=== PATIENT | female | born 1945 | race African-American/Black ===

== ENCOUNTER 2016-12-05 15:26 | Inpatient (IN) | payer MEDICARE ==
[~2016-12-05] VITALS: Ht 170.2 cm; Wt 52.6 kg
[2016-12-05 15:55] LABS: BASO % 0 % (0-3); EOS % 2 % (0-3); HEMATOCRIT 30.1 % (36.0-47.0); HEMOGLOBIN 10.2 g/dL (12.0-15.5); LYMPH # 1.8 x10^3/uL (1.0-4.8); LYMPH % 26 % (24-48); MEAN CORPUSCULAR HEMOGLOBIN 32 pg (25-35); MEAN CORPUSCULAR HGB CONC 34 g/dL (31-37); MEAN CORPUSCULAR VOLUME 95 fL (79-100); MONO % 10 % (0-9); NEUT % 61 % (31-73); PLATELET COUNT 279 x10^3/uL (140-400); RED BLOOD COUNT 3.16 x10^6/uL (3.50-5.40); RED CELL DISTRIBUTION WIDTH 13.1 % (11.5-14.5); WHITE BLOOD COUNT 6.8 x10^3/uL (4.0-11.0)
[2016-12-05] MEDS ORDERED: MULTIVIT INFUSN,ADULT 4,VIT K 10 ML, FOLIC ACID 1 MG, THIAMINE 100 MG in IV DEXTROSE 5 ... IV ONE (16:00)
[2016-12-05 16:14] LABS: CREATININE 1.2 mg/dL (0.6-1.0); GFR 53.7; POTASSIUM 3.7 mmol/L (3.5-5.1)
--- NOTE | 2016-12-05 16:14 | EKG ---
[facility] [address] [place] [address] Test Date: 2016-12-05 Test Time: 16:06:24 Pat Name: AMA SMITH Department: Room: Gender: F Computer Lab Aide: : 1945 Requested By: EV KERR Order Number: [id number] Reading MD: Mario Saunders Measurements Intervals [place] Rate: 88 P: 90 NM: 268 QRS: 54 QRSD: 72 T: 64 QT: 386 QTc: 471 Interpretive Statements SINUS RHYTHM VENTRICULAR PREMATURE COMPLEX(ES) PROLONGED NM INTERVAL Electronically Signed On 12-11-2016 9:10:11 CDT by Mario Saunders
[2016-12-05 16:20] LABS: ALBUMIN 3.3 g/dL (3.4-5.0); ALBUMIN/GLOBULIN RATIO 0.6 (1.0-1.7); TOTAL BILIRUBIN 0.5 mg/dL (0.2-1.0); TOTAL PROTEIN 8.4 g/dL (6.4-8.2)
--- NOTE | 2016-12-05 17:49 | RAD ---
PROCEDURE CT head without contrast HISTORY Dizziness, altered mental status TECHNIQUE Exposure: One or more of the following individualized dose reduction techniques were utilized for this exam: 1. Automated exposure control. 2. Adjustment of the mA and/or kV according to patient size. 3. Use of iterative reconstruction technique. [address] imaging skullbase to vertex COMPARISON No priors FINDINGS Beam hardening artifact from the skullbase extends through the brainstem and cruzito decreasing sensitivity to detect pathology at these locations however diagnostic information still remains. Mild generalized brain atrophy. Cerebral white matter hypoattenuation in a patient of this age likely represents chronic microvascular ischemic gliosis. No intracranial hemorrhage, mass, hydrocephalus or extra-axial fluid collections.. No cerebral cortical infarct. 4 millimeter hypodensity of the right thalamus image 12 an age-indeterminate infarct is not excluded although this could be a small cyst or dilated perivascular space. Orbits, paranasal sinuses, mastoids and bones are unremarkable. IMPRESSION Subcentimeter hypodensity of the right thalamus could represent an age-indeterminate infarct. Heterogeneous hypoattenuating lesions of the cerebral white matter likely representing chronic microvascular ischemic changes, which could decrease the sensitivity for detecting an acute white matter infarct. Electronically signed by: Pradeep Lott MD (December 05, 2016 17:48:17)
--- NOTE | 2016-12-05 18:53 | ED.ADGEN ---
Past Medical History Past Medical History: Gallstones, GERD, Hypertension Past Surgical History: Appendectomy, Other Additional Past Surgical Histo: gallstones, "belly button" Additional Information: 1 ppd Alcohol Use: Heavy Additional Information: reports drinking beer and vodka Drug Use: None, Other Adult General Chief Complaint Chief Complaint: ALTERED MENTAL STATUS HPI HPI Patient is a 70 year old -Greek female who presents with dizziness and near syncope while sitting in the sun on her porch earlier this morning. Patient states she been outdoors for quite a while. On EMS arrival, the patient was alert but confused. He did not exhibit any focal neurologic deficits. Systolic blood pressure was noted to be soft. 200 mL of normal saline was given on route to . On ED arrival, the patient is alert and oriented 4. She reports mild headache and feeling lightheaded during episode, states she now feels better that she is out of the sun states that she has had similar episodes while outdoors in the heat. She reports mild headache but denies any focal neurologic deficits. She denies palpitations chest pain and shortness of breath. Denies abdominal pain, constipation diarrhea, urinary frequency urgency. No other acute symptoms or complaints. Review of Systems Review of Systems Review of symptoms as per HPI. All other review symptoms are negative. Current Medications Current Medications Current Medications Medications (Trade) Dose Ordered Sig/[facility] Start Time Stop Time Status Last Admin Dose Admin Multivitamins 10 ml/Folic Acid 1 mg/Thiamine HCl 100 mg/Dextrose/ Sodium Chloride 1,011.2 ml @ 1,000 mls/ hr 1X ONCE 12/05/16 16:00 12/05/16 17:00 DC 12/05/16 16:09 1,000 MLS/HR Allergies Allergies Allergies Coded Allergies Type Severity Reaction Last Updated Verified Penicillins Allergy Intermediate rash 03/26/14 Yes Physical Exam Physical Exam Constitutional: Well developed, well nourished, hard of hearing, no acute distress, non-toxic appearance. Smells of ETOH. HENT: Normocephalic, atraumatic, bilateral external ears normal, oropharynx moist, no oral exudates, nose normal. Eyes: PERRLA, EOMI, conjunctiva normal, no discharge. Neck: Normal range of motion, no tenderness, supple, no stridor. Cardiovascular:Heart rate regular rhythm, no murmur. Lungs & Thorax: Bilateral breath sounds clear to auscultation. Abdomen: Bowel sounds normal, soft, no tenderness. Skin: Warm, dry, no erythema, no rash. Back: No tenderness, no CVA tenderness. Neurologic: Alert and oriented X 3, normal motor function, normal sensory function, no focal deficits noted. Psychologic: Affect normal, judgement normal, mood normal. Current Patient Data Vital Signs Vital Signs Date Time Temp Pulse Resp B/P (MAP) Pulse Ox O2 Delivery O2 Flow Rate FiO2 12/05/16 15:26 98.6 96 16 132/75 (94) 96 Room Air 98.6 Lab Values Laboratory Tests Test 12/05/16 15:40 White Blood Count 6.8 x10^3/uL (4.0-11.0) Red Blood Count 3.16 x10^6/uL (3.50-5.40) L Hemoglobin 10.2 g/dL (12.0-15.5) L Hematocrit 30.1 % (36.0-47.0) L Mean Corpuscular Volume 95 fL (79-100) Mean Corpuscular Hemoglobin 32 pg (25-35) Mean Corpuscular Hemoglobin Concent 34 g/dL (31-37) Red Cell Distribution Width 13.1 % (11.5-14.5) Platelet Count 279 x10^3/uL (140-400) Neutrophils (%) (Auto) 61 % (31-73) Lymphocytes (%) (Auto) 26 % (24-48) Monocytes (%) (Auto) 10 % (0-9) H Eosinophils (%) (Auto) 2 % (0-3) Basophils (%) (Auto) 0 % (0-3) Neutrophils # (Auto) 4.2 x10^3uL (1.8-7.7) Lymphocytes # (Auto) 1.8 x10^3/uL (1.0-4.8) Monocytes # (Auto) 0.7 x10^3/uL (0.0-1.1) Eosinophils # (Auto) 0.1 x10^3/uL (0.0-0.7) Basophils # (Auto) 0.0 x10^3/uL (0.0-0.2) Sodium Level 123 mmol/L (136-145) L Potassium Level 3.7 mmol/L (3.5-5.1) Chloride Level 87 mmol/L (98-107) L Carbon Dioxide Level 22 mmol/L (21-32) Anion Gap 14 (6-14) Blood Urea Nitrogen 10 mg/dL (7-20) Creatinine 1.2 mg/dL (0.6-1.0) H Estimated GFR (Cockcroft-Gault) 53.7 BUN/Creatinine Ratio 8 (6-20) Glucose Level 78 mg/dL (70-99) Calcium Level 9.0 mg/dL (8.5-10.1) Total Bilirubin 0.5 mg/dL (0.2-1.0) Aspartate Amino Transferase (AST) 46 U/L (15-37) H Alanine Aminotransferase (ALT) 31 U/L (14-59) Alkaline Phosphatase 106 U/L (46-116) Total Protein 8.4 g/dL (6.4-8.2) H Albumin 3.3 g/dL (3.4-5.0) L Albumin/Globulin Ratio 0.6 (1.0-1.7) L Lipase 64 U/L (73-393) L Ethyl Alcohol Level 53 mg/dL (0-10) H Laboratory Tests 12/05/16 15:40 Laboratory Tests 12/05/16 15:40 EKG EKG [EKG: Sinus tach, rate 110, no acute ST-T wave changes, QTC 427.] Radiology/Procedures Radiology/Procedures [CT head: Microvascular disease and possible subacute infarct] Impressions: Patient's mental status and dizziness resolved prior to ED arrival. No acute findings on physical exam. Symptoms likely multifactorial, although alcohol and he exposure likely contributed to episode. Patient noted to be hyponatremic and anemic. Sodium 123. Will admit to the HIMs service. Course & Med Decision Making Course & Med Decision Making Pertinent Labs and Imaging studies reviewed. (See chart for details) [Dr. Tirado to admit.] Dragjean Disclaimer Dragon Disclaimer This electronic medical record was generated, in whole or in part, using a voice recognition dictation system. EV KERR DO December 05, 2016 18:53
[2016-12-05] MEDS ORDERED: IV NORMAL SALINE 1000ML BAG 1,000 ML IV SCH (19:42)
[2016-12-05 20:40] VITALS: BP 148/82
[2016-12-05 23:02] VITALS: BP 146/76
[2016-12-06 03:26] VITALS: BP 160/76
[2016-12-06 04:55] LABS: BASO # 0.1 x10^3/uL (0.0-0.2); BASO % 2 % (0-3); EOS % 4 % (0-3); HEMATOCRIT 27.8 % (36.0-47.0); HEMOGLOBIN 9.8 g/dL (12.0-15.5); LYMPH # 1.6 x10^3/uL (1.0-4.8); LYMPH % 32 % (24-48); MEAN CORPUSCULAR HEMOGLOBIN 33 pg (25-35); MEAN CORPUSCULAR HGB CONC 35 g/dL (31-37); MEAN CORPUSCULAR VOLUME 94 fL (79-100); MONO % 13 % (0-9); NEUT % 49 % (31-73); PLATELET COUNT 269 x10^3/uL (140-400); RED BLOOD COUNT 2.97 x10^6/uL (3.50-5.40); RED CELL DISTRIBUTION WIDTH 13.4 % (11.5-14.5); WHITE BLOOD COUNT 5.1 x10^3/uL (4.0-11.0)
[2016-12-06 05:39] LABS: CALCIUM 8.7 mg/dL (8.5-10.1); CREATININE 0.9 mg/dL (0.6-1.0); GFR 74.9
[2016-12-06 07:00] VITALS: BP 155/73
--- NOTE | 2016-12-06 07:38 | RAD ---
Exam performed: One view chest. Indication: Shortness of air with chest pain today Date of Service: 12/05/2016 6:46 PM Comparison: One view chest from 01/13/15. Single AP upright portable view chest findings: Cardiomediastinal silhouette is within limits of normal. No acute infiltrates, effusion or pneumothorax is detected. Mildly prominent interstitial markings in both lungs are probably chronic. Mild emphysematous changes. The bony structures are normal. Impression: No acute cardiopulmonary process is detected.
[2016-12-06 11:00] VITALS: BP 126/62
[2016-12-06 15:00] VITALS: BP 143/70
--- NOTE | 2016-12-06 20:59 | SSS ---
ADMIT DATE: 12/06/2016 CHIEF COMPLAINT: Loss of consciousness. HISTORY OF PRESENT ILLNESS: The patient is a 70-year-old -[place] woman with chronic alcoholism, who presented to the Emergency Room after passing out while sitting on the porch with her family. Apparently, she was sitting in the red sun, drinking her preferred apple vodka. Got up from the seated position and passed out. EMS was called. On arrival, the patient was actually coherent, mildly confused, did not exhibit any neurological symptoms. Blood pressure was soft, 200 mL of fluids were given on route and by the time she arrived in the Emergency Room, the patient was completely coherent and oriented. On further questioning, she explained to the Emergency Room physician that she had been sitting outside for quite a while, had been feeling lightheaded prior to the episode. All symptoms essentially have resolved by the time of arrival in the Emergency Room, only persistent symptom was a mild headache. In the Emergency Room, she was ruled out for any fractures including shoulder and chest x-ray and head CT. However, on labs, she was found with a sodium of 123 and therefore admitted for observation to the hospital. PAST MEDICAL HISTORY: Chronic alcohol abuse, hypertension, GERD and history of gallstones status post cholecystectomy. FAMILY HISTORY: Heart disease with brother and father. SOCIAL HISTORY: Lives with family, drinks alcohol heavily, although she states a pint last 2-1/2 days. Also, drinks beer, smokes about a pack a day and denies any other drug use. ALLERGIES: PENICILLINS. MEDICATIONS: MAR reconciled with home medications. REVIEW OF SYSTEMS: The patient currently feels fine. She denies any ongoing headache, denies any chest pain, palpitations, lightheadedness or any other symptoms in rest of organ system review. PHYSICAL EXAMINATION: VITAL SIGNS: From today show a blood pressure of 126/62, heart rate of 95, respiratory rate at 18. She is afebrile. GENERAL: This is a thin, 70-year-old, -Australian woman; awake, alert, in no acute distress, slightly hard of hearing. HEENT: Shows no scleral icterus. NECK: Supple. Oral mucosa is pink and moist. Dentition is poor. LUNGS: Clear to auscultation bilaterally. HEART: Regular rate and rhythm. ABDOMEN: Has positive bowel sounds, soft, nontender. EXTREMITIES: Show no edema. LABORATORY DATA: CBC with a WBC of 5.1, hemoglobin 9.8, platelets of 269. Chemistries: Sodium slightly improved 125. Of note, baseline sodium 2 years ago was around 130, potassium at 4.0, BUN of ____. ASSESSMENT AND PLAN: The patient is a 70-year-old woman with syncopal episode after sitting in the sun drinking alcohol. Suspect that this is related to these circumstances rather than cardiac history and discussed with her that alcohol use must be curbed. She also needs to drink other fluids aside from alcohol and avoid direct sun. Her 2 daughters were present with the discussion. They are quite aware of her alcohol abuse. They wish to receive information about helping her detox and obtain resources in the community. Hyponatremia was discussed as well. This is most likely related to alcohol use. She unfortunately is no longer following up with her PCP for several years. Medications are available, but will require monitoring and follow up for further prescriptions. We will hold off on any new prescriptions for her now. DISCHARGE DATE: 12/06/2016. DISCHARGE DISPOSITION: To home. DISCHARGE CONDITION: Stable. DISCHARGE DIAGNOSES: Syncope, question heat stroke. DISCHARGE MEDICATIONS: Please refer to MAR. DISCHARGE INSTRUCTIONS: The patient should find PCP AYSHA, daughters will be instrumental in sitting this up. ROSEMARY GRAHAM MD DR: UR/nts JOB#: [id number] / [id number] JANIE
== END 2016-12-06 16:55 | disposition home or self-care (01) | DRG 923 ==
LOC: ER 15:26 → 4 NORTH 18:49
PROVIDERS: ADMIT Internal Medicine Hematology & Oncology; ATTEND Internal Medicine Hematology & Oncology
DX: T67.0XXA Heatstroke and sunstroke, initial encounter (principal); E87.1 Hypo-osmolality and hyponatremia; R64 Cachexia; Z68.1 Body mass index [BMI] 19.9 or less, adult; F10.20 Alcohol dependence, uncomplicated; R55 Syncope and collapse; F17.210 Nicotine dependence, cigarettes, uncomplicated; I10 Essential (primary) hypertension; K21.9 Gastro-esophageal reflux disease without esophagitis; Z90.49 Acquired absence of other specified parts of digestive tract; Z82.49 Family history of ischemic heart disease and other diseases of the circulatory system; Z88.0 Allergy status to penicillin
CPT/HCPCS: 36415; 70450; 71010; 80048; 80053; 83690; 85027; 93005; 96365; 96366; G0480; J7030; 99285-25

== ENCOUNTER 2017-03-13 10:57 | Emergency (ER) | payer MEDICARE ==
[~2017-03-13] VITALS: Ht 165.1 cm; Wt 45.4 kg
[2017-03-13] MEDS ORDERED: fentaNYL PF VIAL 100 MCG/2 ML VIAL IV ONE (11:45)
[2017-03-13] MEDS ORDERED: IV NORMAL SALINE 1000ML BAG 1,000 ML IV ONE (11:45)
--- NOTE | 2017-03-13 12:04 | PHYS DOC ---
Past Medical History Past Medical History: Gallstones, GERD, Hypertension Past Surgical History: Appendectomy, Other Additional Past Surgical Histo: gallstones, "belly button" Alcohol Use: Heavy Drug Use: None, Other Adult General Chief Complaint Chief Complaint: dental pain, jaw pain HPI HPI Patient is a 71 year old female who presents with mouth pain and dental pain. Patient has a diffuse poor dentition, states pain of one week. Decreased appetite, is taking in by mouth fluids. No fevers reported, not taking anything for pain. She does not have a tetanus follow-up with, she sees Dr. Annmarie Barton as a primary care physician. Denies dysuria or other signs of systemic illness. Review of Systems Review of Systems Constitutional: Denies fever or chills [] Eyes: Denies eye pain [] HENT: Denies nasal congestion or sore throat [] Respiratory: Denies cough or shortness of breath [] Cardiovascular: Denies chest pain GI: Denies abdominal pain, nausea, vomiting, or change in stools : Denies dysuria or hematuria [] Musculoskeletal: Denies back pain Integument: Denies rash Neurologic: Denies headache, focal weakness or sensory changes [] Current Medications Current Medications Current Medications Medications (Trade) Dose Ordered Sig/[facility] Start Time Stop Time Status Last Admin Dose Admin Fentanyl Citrate (Fentanyl 2ml Vial) 50 mcg 1X ONCE 03/13/17 11:45 03/13/17 11:46 DC 03/13/17 13:50 50 MCG Metronidazole 100 ml @ 100 mls/hr 1X ONCE 03/13/17 11:45 03/13/17 12:44 DC 03/13/17 13:15 100 MLS/HR Sodium Chloride 1,000 ml @ 1,000 mls/hr 1X ONCE 03/13/17 11:45 03/13/17 12:44 DC 03/13/17 12:32 1,000 MLS/HR Allergies Allergies Allergies Coded Allergies Type Severity Reaction Last Updated Verified Penicillins Allergy Intermediate rash 03/26/14 Yes codeine Allergy Unknown 03/13/17 Yes latex Allergy Unknown 03/13/17 Yes Physical Exam Physical Exam Constitutional: Well developed, frail, slightly malnourished, thin HENT: Normocephalic, atraumatic, diffuse poor dentition, bowel odor, no trismus , decay to the level of the gums, right side jaw tenderness without obvious fluctuance Eyes: PERRLA, EOMI, conjunctiva normal, no discharge. [] Neck: Normal range of motion, no tenderness, supple, no stridor. [] Cardiovascular:Heart rate tachycardic with regular rhythm, no murmur [] Lungs & Thorax: Bilateral breath sounds clear to auscultation, no wheeze/ crackles or rhonchi Abdomen: Bowel sounds normal, soft, no tenderness, no masses, no pulsatile masses. [] Skin: Warm, dry, no erythema, no rash. [] Back: No tenderness, no CVA tenderness. [] Extremities: No tenderness, no cyanosis, no clubbing, ROM intact, no edema. [] Neurologic: Alert and oriented X 3, normal motor function, normal sensory function, no focal deficits noted. [] Psychologic: Affect normal, judgement normal, mood normal. [] Current Patient Data Vital Signs Vital Signs Date Time Temp Pulse Resp B/P (MAP) Pulse Ox O2 Delivery O2 Flow Rate FiO2 03/13/17 13:50 16 96 Room Air 03/13/17 11:09 98.8 121 98.8 Lab Values Laboratory Tests Test 03/13/17 11:50 03/13/17 12:28 White Blood Count 16.5 x10^3/uL (4.0-11.0) H Red Blood Count 3.16 x10^6/uL (3.50-5.40) L Hemoglobin 10.5 g/dL (12.0-15.5) L Hematocrit 31.8 % (36.0-47.0) L Mean Corpuscular Volume 101 fL (79-100) H Mean Corpuscular Hemoglobin 33 pg (25-35) Mean Corpuscular Hemoglobin Concent 33 g/dL (31-37) Red Cell Distribution Width 14.7 % (11.5-14.5) H Platelet Count 347 x10^3/uL (140-400) Neutrophils (%) (Auto) 76 % (31-73) H Lymphocytes (%) (Auto) 6 % (24-48) L Monocytes (%) (Auto) 18 % (0-9) H Eosinophils (%) (Auto) 0 % (0-3) Basophils (%) (Auto) 0 % (0-3) Neutrophils # (Auto) 12.5 x10^3uL (1.8-7.7) H Lymphocytes # (Auto) 1.0 x10^3/uL (1.0-4.8) Monocytes # (Auto) 3.0 x10^3/uL (0.0-1.1) H Eosinophils # (Auto) 0.0 x10^3/uL (0.0-0.7) Basophils # (Auto) 0.0 x10^3/uL (0.0-0.2) Segmented Neutrophils % 75 % (35-66) H Band Neutrophils % 3 % (0-9) Lymphocytes % 4 % (24-48) L Monocytes % 18 % (0-10) H Platelet Estimate Adequate (ADEQUATE) Lactic Acid Level 1.4 mmol/L (0.4-2.0) Total Bilirubin 0.7 mg/dL (0.2-1.0) Direct Bilirubin 0.5 mg/dL (0.0-0.2) H Aspartate Amino Transferase (AST) 34 U/L (15-37) Alanine Aminotransferase (ALT) 21 U/L (14-59) Alkaline Phosphatase 91 U/L (46-116) Total Protein 9.8 g/dL (6.4-8.2) H Albumin 2.7 g/dL (3.4-5.0) L POC Hemoglobin 11.9 g/dL (12-15) L POC Hematocrit 35 % (36-40) L POC Sodium 136 mmol/L (135-145) POC Potassium 3.3 mmol/L (3.5-5.0) L POC Chloride 95 mmol/L (98-110) L POC Total CO2 23 mmol/L (23-32) Anion Gap 23 mmol/L (6-14) H POC Blood Urea Nitrogen 41 mg/dL (8-26) H POC Creatinine 1.4 mg/dL (0.5-1.4) Glucose Level 125 mg/dL (70-99) H POC Ionized Calcium (Oliver) 1.23 mmol/L (1.13-1.32) Laboratory Tests 03/13/17 11:50 Laboratory Tests 03/13/17 12:28 EKG EKG [] Radiology/Procedures Radiology/Procedures [] Course & Med Decision Making Course & Med Decision Making Pertinent Labs and Imaging studies reviewed. (See chart for details) Patient presents with tachycardia with possible trench mouth. IV established, lactate, blood cultures, CBC and BMP ordered. IV flagyl given. Pt feeling improved, HR below 100, normal lactate. Pt comfortable with discharge , dc with peridex and flagyl, return precautions given, dental resource list. Rx for ibuprofen also. Dragon Disclaimer Dragon Disclaimer This electronic medical record was generated, in whole or in part, using a voice recognition dictation system. Departure Departure Impression: Primary Impression: Trench mouth Disposition: HOME, SELF-CARE Condition: IMPROVED Referrals: MARILU BARTON MD (PCP) Scripts Chlorhexidine Gluconate (PERIDEX) 15 Ml Mouthwash 15 ML PO BID, #473 ML Swish for 30 seconds and spit Prov: MICHELLE BURRELL MD 03/13/17 Metronidazole (METRONIDAZOLE) 500 Mg Tablet 1 TAB PO BID, #14 TAB Prov: MICHELLE BURRELL MD 03/13/17 Ibuprofen (Ibuprofen) 400 Mg Tablet 400 MG PO PRN Q6HRS Y for PAIN, #24 TAB take with food or milk to avoid upsetting your stomach Prov: MICHELLE BURRELL MD 03/13/17 MICHELLE BURRELL MD Mar 13, 2017 12:04
[2017-03-13 12:08] LABS: BASO % 0 % (0-3); EOS % 0 % (0-3); HEMATOCRIT 31.8 % (36.0-47.0); HEMOGLOBIN 10.5 g/dL (12.0-15.5); LYMPH % 6 % (24-48); MEAN CORPUSCULAR HEMOGLOBIN 33 pg (25-35); MEAN CORPUSCULAR HGB CONC 33 g/dL (31-37); MEAN CORPUSCULAR VOLUME 101 fL (79-100); MONO % 18 % (0-9); NEUT % 76 % (31-73); PLATELET COUNT 347 x10^3/uL (140-400); RED BLOOD COUNT 3.16 x10^6/uL (3.50-5.40); RED CELL DISTRIBUTION WIDTH 14.7 % (11.5-14.5); WHITE BLOOD COUNT 16.5 x10^3/uL (4.0-11.0)
[2017-03-13 12:16] LABS: ALBUMIN 2.7 g/dL (3.4-5.0); DIRECT BILIRUBIN 0.5 mg/dL (0.0-0.2); TOTAL BILIRUBIN 0.7 mg/dL (0.2-1.0); TOTAL PROTEIN 9.8 g/dL (6.4-8.2)
[2017-03-13 12:31] LABS: POTASSIUM ISTAT 3.3 mmol/L (3.5-5.0)
[2017-03-13 13:57] LABS: PLT ESTIMATE ADEQUATE (ADEQUATE)
[2017-03-13] MEDS ORDERED: CHLO15MO2 PO (14:06)
[2017-03-13] MEDS ORDERED: IBUP400T18 PO (14:06)
[2017-03-13] MEDS ORDERED: METR500T8 PO (14:06)
[2017-03-13 14:09] VITALS: BP 144/71
== END 2017-03-13 14:27 | disposition home or self-care (01) ==
LOC: ER 10:57
DX: A69.1 Other Vincent's infections (principal); K21.9 Gastro-esophageal reflux disease without esophagitis; I10 Essential (primary) hypertension; F10.10 Alcohol abuse, uncomplicated; Z88.5 Allergy status to narcotic agent; Z88.0 Allergy status to penicillin; Z91.040 Latex allergy status
CPT/HCPCS: 36415; 80047; 80076; 83605; 85007; 85025; 87040; 96361; 96365; 96375; 99284; J3010; J3490; J7030

== ENCOUNTER 2018-09-29 07:57 | Inpatient (IN) | payer MEDICARE ==
[~2018-09-29] VITALS: Ht 170.2 cm; Wt 59.1 kg
[~2018-09-29 07:57] MED LIST: CHLO15MO2 PO; IBUP400T18 PO; METR-34 PO; PANT40TA5 PO
--- NOTE | 2018-09-29 08:12 | PHYS DOC ---
Past Medical History Past Medical History: COPD, GI Bleed, Hypertension Past Surgical History: Appendectomy, Other Additional Past Surgical Histo: Bilateral cataracts. Smoking: Cigarettes, Less than 1pk/day Alcohol Use: Occasionally Drug Use: None Adult General Chief Complaint Chief Complaint: SYNCOPE HPI HPI Patient is a 72 year old female who presents with syncopal episode. Patient was brought in by EMS. Patient does not remember the episode. Per EMS she was found in the bathroom laying flat on her back. Uncertain as to how long she was unconscious. She was found by family members. Patient complains of pain in the back of the head. No loss of bowel or bladder control. No weakness on either the left or the right side. No palpitations. Nothing seems to make the symptoms better or worse.[] Review of Systems Review of Systems Constitutional: Denies fever or chills [] Eyes: Denies change in visual acuity, redness, or eye pain [] HENT: Denies nasal congestion or sore throat [] Respiratory: Denies cough or shortness of breath [] Cardiovascular: No chest pain or palpitations[] GI: Denies abdominal pain, nausea, vomiting, bloody stools or diarrhea [] : Denies dysuria or hematuria [] Musculoskeletal: Denies back pain or joint pain [] Integument: Denies rash or skin lesions [] Neurologic: Denies headache, focal weakness or sensory changes [] Endocrine: Denies polyuria or polydipsia [] All other systems were reviewed and found to be within normal limits, except as documented in this note. Allergies Allergies Allergies Coded Allergies Type Severity Reaction Last Updated Verified Penicillins Allergy Intermediate rash 03/26/14 Yes codeine Allergy Intermediate Reaction unknown 03/31/17 Yes latex Allergy Intermediate 03/29/17 Yes Physical Exam Physical Exam Constitutional: Well developed, well nourished, no acute distress, non-toxic appearance. [] HENT: Normocephalic, tenderness to the occiput. No step-off, no crepitus, bilateral external ears normal, oropharynx moist, no oral exudates, nose normal. [] Eyes: PERRLA, EOMI, conjunctiva normal, no discharge. [] Neck: Normal range of motion, no tenderness, supple, no stridor. [] Cardiovascular:Heart rate regular rhythm, no murmur [] Lungs & Thorax: Bilateral breath sounds clear to auscultation [] Abdomen: Bowel sounds normal, soft, no tenderness, no masses, no pulsatile masses. [] Skin: Warm, dry, no erythema, no rash. [] Back: No tenderness, no CVA tenderness. [] Extremities: No tenderness, no cyanosis, no clubbing, ROM intact, no edema. [] Neurologic: Alert and oriented X 3, normal motor function, normal sensory function, no focal deficits noted. [] Psychologic: Affect normal, judgement normal, mood normal. [] Current Patient Data Vital Signs Vital Signs Date Time Temp Pulse Resp B/P (MAP) Pulse Ox O2 Delivery O2 Flow Rate FiO2 09/29/18 08:02 97.6 74 16 145/69 (94) 97 Room Air 97.6 Lab Values Laboratory Tests Test 09/29/18 08:10 White Blood Count 4.6 x10^3/uL (4.0-11.0) Red Blood Count 3.79 x10^6/uL (3.50-5.40) Hemoglobin 12.1 g/dL (12.0-15.5) Hematocrit 35.9 % (36.0-47.0) L Mean Corpuscular Volume 95 fL (79-100) Mean Corpuscular Hemoglobin 32 pg (25-35) Mean Corpuscular Hemoglobin Concent 34 g/dL (31-37) Red Cell Distribution Width 13.0 % (11.5-14.5) Platelet Count 279 x10^3/uL (140-400) Neutrophils (%) (Auto) 51 % (31-73) Lymphocytes (%) (Auto) 36 % (24-48) Monocytes (%) (Auto) 7 % (0-9) Eosinophils (%) (Auto) 4 % (0-3) H Basophils (%) (Auto) 2 % (0-3) Neutrophils # (Auto) 2.4 x10^3uL (1.8-7.7) Lymphocytes # (Auto) 1.6 x10^3/uL (1.0-4.8) Monocytes # (Auto) 0.3 x10^3/uL (0.0-1.1) Eosinophils # (Auto) 0.2 x10^3/uL (0.0-0.7) Basophils # (Auto) 0.1 x10^3/uL (0.0-0.2) Prothrombin Time 13.3 SEC (11.7-14.0) Prothrombin Time INR 1.0 (0.8-1.1) Sodium Level 129 mmol/L (136-145) L Potassium Level 4.6 mmol/L (3.5-5.1) Chloride Level 94 mmol/L (98-107) L Carbon Dioxide Level 25 mmol/L (21-32) Anion Gap 10 (6-14) Blood Urea Nitrogen 11 mg/dL (7-20) Creatinine 1.2 mg/dL (0.6-1.0) H Estimated GFR (Cockcroft-Gault) 53.4 BUN/Creatinine Ratio 9 (6-20) Glucose Level 94 mg/dL (70-99) Calcium Level 8.7 mg/dL (8.5-10.1) Magnesium Level 1.6 mg/dL (1.8-2.4) L Total Bilirubin 0.2 mg/dL (0.2-1.0) Aspartate Amino Transferase (AST) 36 U/L (15-37) Alanine Aminotransferase (ALT) 32 U/L (14-59) Alkaline Phosphatase 125 U/L (46-116) H Troponin I Quantitative < 0.017 ng/mL (0.000-0.055) ZA-Wue-G-Type Natriuretic Peptide 428 pg/mL (0-124) H Total Protein 8.5 g/dL (6.4-8.2) H Albumin 3.2 g/dL (3.4-5.0) L Albumin/Globulin Ratio 0.6 (1.0-1.7) L Ethyl Alcohol Level 32 mg/dL (0-10) H Laboratory Tests 09/29/18 08:10 Laboratory Tests 09/29/18 08:10 EKG EKG EKG shows a sinus rhythm at 71 bpm, normal axis, prolonged OK interval at 226 ms , QTC of 468 ms, no ST elevations, no acute changes when compared with EKG of . Interpreted by me at [id number][] Radiology/Procedures Radiology/Procedures EXAM: CHEST 1 VIEW History: Syncope COMPARISON: None available. TECHNIQUE: Single portable radiograph of the chest FINDINGS: The cardiac silhouette is unremarkable. The lungs are clear bilaterally. The costophrenic sulci are clear and well demarcated. IMPRESSION: No radiographic evidence of an acute cardiopulmonary process. CT HEAD INDICATION: syncope. head injury COMPARISON: None Available. Exposure: One or more of the following individualized dose reduction techniques were utilized for this examination: 1. Automated exposure control 2. Adjustment of the mA and/or kV according to patient size 3. Use of iterative reconstruction technique TECHNIQUE: 5 mm contiguous axial images were obtained from the skull base to the vertex in both bone and soft tissue algorithm. FINDINGS: Mild bilateral periventricular white matter hypodensities likely chronic small vessel ischemic disease. No evidence of acute intracranial hemorrhage. No extra-axial fluid collections. No mass effect or midline shift. Ventricular size is appropriate. Basal cisterns are patent. No fractures identified.Rivers-white differentiation is preserved.Globes and orbits are within normal limits. Paranasal sinuses and mastoid air cells are clear. CT CERVICAL SPINE INDICATION: syncope. head injury COMPARISON: None Available. Technique: 2.5 mm contiguous axial images were obtained from the skull base through the cervicothoracic junction in both bone and soft tissue algorithm. Additional sagittal and coronal reconstructions were also performed. FINDINGS: Vertebral body height and alignment are maintained. Cervical lordosis is preserved. The lateral masses of C1 are aligned upon C2. No fractures identified. The bony canal is patent throughout. Moderate intervertebral disc height loss identified throughout the cervical spine likely due to degeneration with the facets are well aligned. 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 The paraspinous soft tissues are unremarkable. Visualized intracranial contents are unremarkable. Mild emphysematous changes identified in the apical lungs. IMPRESSION: 1. No acute intracranial findings. 2. No acute fracture of the cervical spine. Correlate clinically. 3. Moderate degenerative changes cervical spine. [] Course & Med Decision Making Course & Med Decision Making Pertinent Labs and Imaging studies reviewed. (See chart for details) ED course: Patient arrived, was placed in bed, from the EMS cot, she tolerated exam well. She was transported to and from [place] without any complications. After the return of the laboratory and imaging findings, these were discussed with the patient who voiced understanding. All questions were answered. Consultation was made with the hospitalist service for admission and they graciously agreed. She was admitted in improved condition.[] Dragon Disclaimer Dragon Disclaimer This electronic medical record was generated, in whole or in part, using a voice recognition dictation system. Departure Departure Impression: Primary Impression: Syncope Disposition: 09 ADMITTED INPATIENT Admitting Physician: Anatoliy Calvillo Condition: IMPROVED Referrals: MARILU BARTON MD (PCP) Problem Qualifiers Primary Impression: Syncope Syncope type: unspecified Qualified Codes: R55 - Syncope and collapse SOFIA BLACK Sep 29, 2018 08:12
[2018-09-29 08:31] LABS: BASO # 0.1 x10^3/uL (0.0-0.2); BASO % 2 % (0-3); EOS # 0.2 x10^3/uL (0.0-0.7); EOS % 4 % (0-3); HEMATOCRIT 35.9 % (36.0-47.0); HEMOGLOBIN 12.1 g/dL (12.0-15.5); LYMPH # 1.6 x10^3/uL (1.0-4.8); LYMPH % 36 % (24-48); MEAN CORPUSCULAR HEMOGLOBIN 32 pg (25-35); MEAN CORPUSCULAR HGB CONC 34 g/dL (31-37); MEAN CORPUSCULAR VOLUME 95 fL (79-100); MONO # 0.3 x10^3/uL (0.0-1.1); MONO % 7 % (0-9); NEUT # 2.4 x10^3uL (1.8-7.7); NEUT % 51 % (31-73); PLATELET COUNT 279 x10^3/uL (140-400); RED BLOOD COUNT 3.79 x10^6/uL (3.50-5.40); WHITE BLOOD COUNT 4.6 x10^3/uL (4.0-11.0)
[2018-09-29 08:37] LABS: PROTHROMBIN TIME PATIENT 13.3 SEC (11.7-14.0)
[2018-09-29 08:42] LABS: CALCIUM 8.7 mg/dL (8.5-10.1); CREATININE 1.2 mg/dL (0.6-1.0); GFR 53.4; POTASSIUM 4.6 mmol/L (3.5-5.1)
--- NOTE | 2018-09-29 08:45 | RAD ---
EXAM: CHEST 1 VIEW History: Syncope COMPARISON: None available. TECHNIQUE: Single portable radiograph of the chest FINDINGS: The cardiac silhouette is unremarkable. The lungs are clear bilaterally. The costophrenic sulci are clear and well demarcated. IMPRESSION: No radiographic evidence of an acute cardiopulmonary process. Electronically signed by: Jacinto Moreno MD (09/29/2018 8:43 AM) [facility]
[2018-09-29 08:49] LABS: ALBUMIN 3.2 g/dL (3.4-5.0); ALBUMIN/GLOBULIN RATIO 0.6 (1.0-1.7); MAGNESIUM 1.6 mg/dL (1.8-2.4); TOTAL BILIRUBIN 0.2 mg/dL (0.2-1.0); TOTAL PROTEIN 8.5 g/dL (6.4-8.2)
--- NOTE | 2018-09-29 09:06 | RAD ---
Examination: CT head and cervical spine without contrast CT HEAD INDICATION: syncope. head injury COMPARISON: None Available. Exposure: One or more of the following individualized dose reduction techniques were utilized for this examination: 1. Automated exposure control 2. Adjustment of the mA and/or kV according to patient size 3. Use of iterative reconstruction technique TECHNIQUE: 5 mm contiguous axial images were obtained from the skull base to the vertex in both bone and soft tissue algorithm. FINDINGS: Mild bilateral periventricular white matter hypodensities likely chronic small vessel ischemic disease. No evidence of acute intracranial hemorrhage. No extra-axial fluid collections. No mass effect or midline shift. Ventricular size is appropriate. Basal cisterns are patent. No fractures identified.Rivers-white differentiation is preserved.Globes and orbits are within normal limits. Paranasal sinuses and mastoid air cells are clear. CT CERVICAL SPINE INDICATION: syncope. head injury COMPARISON: None Available. Technique: 2.5 mm contiguous axial images were obtained from the skull base through the cervicothoracic junction in both bone and soft tissue algorithm. Additional sagittal and coronal reconstructions were also performed. FINDINGS: Vertebral body height and alignment are maintained. Cervical lordosis is preserved. The lateral masses of C1 are aligned upon C2. No fractures identified. The bony canal is patent throughout. Moderate intervertebral disc height loss identified throughout the cervical spine likely due to degeneration with the facets are well aligned. 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 The paraspinous soft tissues are unremarkable. Visualized intracranial contents are unremarkable. Mild emphysematous changes identified in the apical lungs. IMPRESSION: 1. No acute intracranial findings. 2. No acute fracture of the cervical spine. Correlate clinically. 3. Moderate degenerative changes cervical spine. Electronically signed by: Jacinto Moreno MD (09/29/2018 9:02 AM) [facility]
[2018-09-29] MEDS ORDERED: ACETAMINOPHEN 325 MG TABLET. PO PRN (09:30)
[2018-09-29] MEDS ORDERED: ONDANSETRON PF 4 MG/2 ML VIAL. IV PRN (09:30)
[2018-09-29] MEDS ORDERED: IV NORMAL SALINE 1000ML BAG 1,000 ML IV ONE (09:30)
--- NOTE | 2018-09-29 10:42 | PDOC1 ---
History and Physical Date of Admission Date of Admission DATE: 09/29/18 TIME: 10:42 Identification/Chief Complaint Chief Complaint SEEN IN ER FOR SYNCOPAL EPISODE . Per EMS she was found in the bathroom laying flat on her back. Uncertain as to how long she was unconscious. She was found by HER SON . Patient complains of pain in the back of the head. No loss of bowel or bladder control. No weakness on either the left or the right side. No palpitations.States she drank heavily yesterday, whiskey, celebrating her re return from [place] was visiting her daughter who has cancer. States she drinks about 3-4 times a week, mostly beer, but will not drink alcohol unless it tastes sweet. States she has drank heavily at least 20 yrs, was in treatment program for ETOH YRS AGO, Does not have a PCP. Past Medical History Past Medical History Past Medical History Past Medical History Past Medical History: COPD, GI Bleed, Hypertension Past Surgical History: Appendectomy, Other Additional Past Surgical Histo: Bilateral cataracts. Smoking: Cigarettes, Less than 1pk/day Alcohol Use: heavy Drug Use: None PAST MEDICAL HISTORY: Chronic alcohol abuse, hypertension, GERD and history of gallstones status post cholecystectomy. FAMILY HISTORY: Heart disease with brother and father. Father drank heavily she reports SOCIAL HISTORY: Lives with son , drinks alcohol heavily, although she states a pint last 2-1/2 days. Also, drinks beer, smokes about a pack a day and denies any other drug use. ALLERGIES: PENICILLINS. MEDICATIONS: MAR reconciled with home medications. GI: GERD, GI bleed Musculoskeletal: Osteoarthritis Family History Family History PAST SURGICAL HISTORY: She is status post appendectomy as well as bilateral cataract surgery. FAMILY HISTORY: Positive for GI issues in 2 brothers as well as 2 sons, all apparently with some type of upper GI bleed. One brother with cancer of the GI system. Family History: Alcohol Abuse Social History Smoke: <1 pack per day ALCOHOL: occassional Drugs: None Current Medications Current Medications Current Medications Ondansetron HCl (Zofran) 4 mg PRN Q8HRS PRN IV NAUSEA/VOMITING; Start 09/29/18 at 09:30; Stop 09/30/18 at 09:29 Acetaminophen (Tylenol) 650 mg PRN Q4HRS PRN PO FEVER or PAIN; Start 09/29/18 at 09:30; Stop 09/30/18 at 09:29 Sodium Chloride 1,000 ml @ 100 mls/hr 1X ONCE IV Last administered on at 09:24; Start 09/29/18 at 09:30; Stop 09/29/18 at 19:29 Active Scripts Active Pantoprazole Sodium 40 Mg Tablet.dr 40 Mg PO BIDAC 30 Days Peridex (Chlorhexidine Gluconate) 15 Ml Mouthwash 15 Ml PO BID Swish for 30 seconds and spit Allergies Allergies: Coded Allergies: Penicillins (Verified Allergy, Intermediate, rash, 03/26/14) codeine (Verified Allergy, Intermediate, Reaction unknown, 03/31/17) Patient says she has taken Lortab previously without problems. latex (Verified Allergy, Intermediate, 03/29/17) ROS Review of System Review of Systems Review of Systems Constitutional: Denies fever or chills [] Eyes: Denies change in visual acuity, redness, or eye pain [] HENT: Denies nasal congestion or sore throat [] Respiratory: Denies cough or shortness of breath [] Cardiovascular: No chest pain or palpitations[] GI: Denies abdominal pain, nausea, vomiting, bloody stools or diarrhea [] : Denies dysuria or hematuria [] Musculoskeletal: Denies back pain or joint pain [] Integument: Denies rash or skin lesions [] Neurologic: Denies headache, focal weakness or sensory changes [] Endocrine: Denies polyuria or polydipsia [] 14 PT systems were reviewed and found to be within normal limits, except as documented General: YES: Malaise Respiratory: No: Cough, Hemoptysis, Orthopnea, Pleuritic Pain, Shortness of breath, SOB with excertion, Sputum Changes, Stridor, Tachypnea, Wheezing, Other Cardiovascular: No Chest Pain, No Palpitations, No Orthopnea, No Paroxysmal Noc. Dyspnea, No Edema, No Lt Headedness, No Other Gastrointestinal: No Nausea, No Vomiting, No Abdominal Pain, No Diarrhea, No Constipation, No Melena, No Hematochezia, No Other Genitourinary: No Dysuria, No Frequency, No Incontinence, No Hematuria, No Retention, No Discharge, No Urgency, No Pain, No Flank Pain, No Other, No , No , No , No , No , No , No Neurological: Yes Gait Disturbance, Yes Impaired Coord/balance Physical Exam Physical Exam Physical Exam Physical Exam Constitutional: Well developed, POORLY nourished, no acute distress, non-toxic appearance. [] HENT: Normocephalic, tenderness to the occiput. No step-off, no crepitus, bilateral external ears normal, oropharynx moist, no oral exudates, nose normal.POOR DENTITION [] Eyes: PERRLA, EOMI, conjunctiva normal, no discharge. [] Neck: Normal range of motion, no tenderness, supple, no stridor. [] Cardiovascular:Heart rate regular rhythm, no murmur [] Lungs & Thorax: Bilateral breath sounds clear to auscultation [] Abdomen: Bowel sounds normal, soft, no tenderness, no masses, no pulsatile masses. [] Skin: Warm, dry, no erythema, no rash. [] Back: No tenderness, no CVA tenderness. [] Extremities: No tenderness, no cyanosis, no clubbing, ROM intact, no edema. [] Neurologic: Alert and oriented X 3, normal motor function, normal sensory function, no focal deficits noted. 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 [] General: Oriented X3, Cooperative, No acute distress HEENT: EOMI Lungs: Clear to auscultation Heart: RRR Breasts: Not examined Abdomen: Soft Rectal Exam: not examined PELVIC: Examination not indicated Extremities: No cyanosis Neuro: Normal speech, Cranial nerves 3-12 NL Psych/Mental Status: Other (flat affect) Vitals Vitals Vital Signs Date Time Temp Pulse Resp B/P (MAP) Pulse Ox O2 Delivery O2 Flow Rate FiO2 09/29/18 09:00 72 13 152/75 (100) 98 Room Air 09/29/18 08:02 97.6 97.6 Labs Labs Operative Note Operative Note EGD with bx Meds propofol 80 mg Pre-op dx acute blood loss anemia/melena/abnl Ct scan post-op dx- large penetrating lesser curve ulcer 4 x 8 cm s/p bx with cratered base no active bleed presently Plan transfusional support to maintain Hg > 8 bleeding scan to assess for other source of bleeding await biopsies r/o malignancy BELÉN TENORIO MD Mar 28, 2017 14:21 SIGNED BY: BELÉN TENORIO MD DATE: 03/28/17 1421 DICTATED AND SIGNED BY: YULY FLORES MD DATE: 03/27/172106 CC: EV KERR DO; MARILU BARTON MD ~ EXAM: Abdomen and pelvis CT without intravenous contrast. HISTORY: Epigastric pain. TECHNIQUE: Computed tomographic images of the abdomen and pelvis were obtained without contrast. Multiplanar reformatting was performed. *One or more of the following individualized dose reduction techniques were utilized for this examination: 1. Automated exposure control. 2. Adjustment of the mA and/or kV according to patient size. 3. Use of iterative reconstruction technique. COMPARISON: None. FINDINGS: Evaluation of the lower thorax demonstrates left lower lobe infiltrate and suspected right basilar atelectasis. There is no effusion. The heart is normal in size. There is a 2.8 cm fluid and gas-filled outpouching along the lesser curvature of the stomach. There is mild adjacent gastric wall thickening. There is suggestion of a 5 mm hypodense lesion within the liver, possibly due to volume averaging artifact or a tiny cyst. No suspicious hepatic lesion is seen. The gallbladder is surgically absent. The pancreas, spleen and adrenal glands are unremarkable. There is a partially duplicated left renal collecting system. There is no suspicious renal lesion or obstructive uropathy. There is colonic diverticulosis without evidence of diverticulitis. There is no evidence of bowel obstruction. There is aortic and aortic branch vessel calcified atherosclerotic plaque. No pathologically enlarged lymph node is seen. The urinary bladder, uterus and adnexal regions are unremarkable. There is bone demineralization. There are degenerative changes throughout the spine. There is a severe L2 compression fracture with 4 mm retropulsion of the cortex resulting in mild central canal stenosis. This is chronic in appearance. IMPRESSION: 1. 2.8 cm gas and fluid-filled outpouching along the lesser curvature of the stomach. This is not the classic location for a gastric diverticulum. However, the absence of surrounding stranding or extraluminal fluid or gas favors a diverticulum rather than contained perforation. There is mild thickening of the mucosa along the lesser curvature of the stomach, a component of which may be due to relative under distention. The possibility of adjacent gastritis is not excluded. Given history of epigastric pain, endoscopic assessment may be useful if clinically indicated. 2. Colonic diverticulosis. Electronically signed by: Yuly Flores MD (03/27/2017 7:07 PM) [facility] CT HEAD INDICATION: syncope. head injury COMPARISON: None Available. Exposure: One or more of the following individualized dose reduction techniques were utilized for this examination: 1. Automated exposure control 2. Adjustment of the mA and/or kV according to patient size 3. Use of iterative reconstruction technique TECHNIQUE: 5 mm contiguous axial images were obtained from the skull base to the vertex in both bone and soft tissue algorithm. FINDINGS: Mild bilateral periventricular white matter hypodensities likely chronic small vessel ischemic disease. No evidence of acute intracranial hemorrhage. No extra-axial fluid collections. No mass effect or midline shift. Ventricular size is appropriate. Basal cisterns are patent. No fractures identified.Rivers-white differentiation is preserved.Globes and orbits are within normal limits. Paranasal sinuses and mastoid air cells are clear. CT CERVICAL SPINE INDICATION: syncope. head injury COMPARISON: None Available. Technique: 2.5 mm contiguous axial images were obtained from the skull base through the cervicothoracic junction in both bone and soft tissue algorithm. Additional sagittal and coronal reconstructions were also performed. FINDINGS: Vertebral body height and alignment are maintained. Cervical lordosis is preserved. The lateral masses of C1 are aligned upon C2. No fractures identified. The bony canal is patent throughout. Moderate intervertebral disc height loss identified throughout the cervical spine likely due to degeneration with the facets are well aligned. 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 The paraspinous soft tissues are unremarkable. Visualized intracranial contents are unremarkable. Mild emphysematous changes identified in the apical lungs. IMPRESSION: 1. No acute intracranial findings. 2. No acute fracture of the cervical spine. Correlate clinically. 3. Moderate degenerative changes cervical spine. Electronically signed by: Jacinto Moreno MD (09/29/2018 9:02 AM) [facility] DICTATED and SIGNED BY: JACINTO MORENO MD DATE: 09/29/18 0845 PATHOLOGY REPORT * * * * * * * * FINAL DIAGNOSIS: Gastric biopsy, gastric ulcer: - Active chronic gastritis, moderate to marked, with extensive intestinal metaplasia and ulceration. COMMENT: Sections of the gastric biopsy reveal segments of gastric antral mucosa showing moderate to marked active chronic inflammation with extensive intestinal metaplasia. There are also segments of acute inflammatory exudate consistent with ulceration. A properly controlled immunoperoxidase stain for Helicobacter is obtained. There is focal granular staining, but no definitive Helicobacter organisms are identified. There is no evidence of malignancy. (JPM:mml; 03/29/2017) REPORT ELECTRONICALLY SIGNED BY: Yusef French M.D. DATE/TIME: 03/29/2017 11:07 * * * * * * * * GROSS PATHOLOGY: Received in formalin labeled "Dong, Sunni, gastric ulcer biopsy," are multiple segments of randhawa soft tissue measuring from 0.1 up to 0.3 cm in maximum dimension. The specimen is submitted entirely in cassette A1. An immunoperoxidase stain to rule out Helicobacter Pylori will be obtained. (JPM; 03/28/17) Laboratory Tests Test 09/29/18 08:10 White Blood Count 4.6 x10^3/uL (4.0-11.0) Red Blood Count 3.79 x10^6/uL (3.50-5.40) Hemoglobin 12.1 g/dL (12.0-15.5) Hematocrit 35.9 % (36.0-47.0) Mean Corpuscular Volume 95 fL (79-100) Mean Corpuscular Hemoglobin 32 pg (25-35) Mean Corpuscular Hemoglobin Concent 34 g/dL (31-37) Red Cell Distribution Width 13.0 % (11.5-14.5) Platelet Count 279 x10^3/uL (140-400) Neutrophils (%) (Auto) 51 % (31-73) Lymphocytes (%) (Auto) 36 % (24-48) Monocytes (%) (Auto) 7 % (0-9) Eosinophils (%) (Auto) 4 % (0-3) Basophils (%) (Auto) 2 % (0-3) Neutrophils # (Auto) 2.4 x10^3uL (1.8-7.7) Lymphocytes # (Auto) 1.6 x10^3/uL (1.0-4.8) Monocytes # (Auto) 0.3 x10^3/uL (0.0-1.1) Eosinophils # (Auto) 0.2 x10^3/uL (0.0-0.7) Basophils # (Auto) 0.1 x10^3/uL (0.0-0.2) Prothrombin Time 13.3 SEC (11.7-14.0) Prothromb Time International Ratio 1.0 (0.8-1.1) Sodium Level 129 mmol/L (136-145) Potassium Level 4.6 mmol/L (3.5-5.1) Chloride Level 94 mmol/L (98-107) Carbon Dioxide Level 25 mmol/L (21-32) Anion Gap 10 (6-14) Blood Urea Nitrogen 11 mg/dL (7-20) Creatinine 1.2 mg/dL (0.6-1.0) Estimated GFR (Cockcroft-Gault) 53.4 BUN/Creatinine Ratio 9 (6-20) Glucose Level 94 mg/dL (70-99) Calcium Level 8.7 mg/dL (8.5-10.1) Magnesium Level 1.6 mg/dL (1.8-2.4) Total Bilirubin 0.2 mg/dL (0.2-1.0) Aspartate Amino Transf (AST/SGOT) 36 U/L (15-37) Alanine Aminotransferase (ALT/SGPT) 32 U/L (14-59) Alkaline Phosphatase 125 U/L (46-116) Troponin I Quantitative < 0.017 ng/mL (0.000-0.055) OD-Cff-H-Type Natriuretic Peptide 428 pg/mL (0-124) Total Protein 8.5 g/dL (6.4-8.2) Albumin 3.2 g/dL (3.4-5.0) Albumin/Globulin Ratio 0.6 (1.0-1.7) Ethyl Alcohol Level 32 mg/dL (0-10) Laboratory Tests Test 09/29/18 08:10 White Blood Count 4.6 x10^3/uL (4.0-11.0) Red Blood Count 3.79 x10^6/uL (3.50-5.40) Hemoglobin 12.1 g/dL (12.0-15.5) Hematocrit 35.9 % (36.0-47.0) Mean Corpuscular Volume 95 fL (79-100) Mean Corpuscular Hemoglobin 32 pg (25-35) Mean Corpuscular Hemoglobin Concent 34 g/dL (31-37) Red Cell Distribution Width 13.0 % (11.5-14.5) Platelet Count 279 x10^3/uL (140-400) Neutrophils (%) (Auto) 51 % (31-73) Lymphocytes (%) (Auto) 36 % (24-48) Monocytes (%) (Auto) 7 % (0-9) Eosinophils (%) (Auto) 4 % (0-3) Basophils (%) (Auto) 2 % (0-3) Neutrophils # (Auto) 2.4 x10^3uL (1.8-7.7) Lymphocytes # (Auto) 1.6 x10^3/uL (1.0-4.8) Monocytes # (Auto) 0.3 x10^3/uL (0.0-1.1) Eosinophils # (Auto) 0.2 x10^3/uL (0.0-0.7) Basophils # (Auto) 0.1 x10^3/uL (0.0-0.2) Prothrombin Time 13.3 SEC (11.7-14.0) Prothromb Time International Ratio 1.0 (0.8-1.1) Sodium Level 129 mmol/L (136-145) Potassium Level 4.6 mmol/L (3.5-5.1) Chloride Level 94 mmol/L (98-107) Carbon Dioxide Level 25 mmol/L (21-32) Anion Gap 10 (6-14) Blood Urea Nitrogen 11 mg/dL (7-20) Creatinine 1.2 mg/dL (0.6-1.0) Estimated GFR (Cockcroft-Gault) 53.4 BUN/Creatinine Ratio 9 (6-20) Glucose Level 94 mg/dL (70-99) Calcium Level 8.7 mg/dL (8.5-10.1) Magnesium Level 1.6 mg/dL (1.8-2.4) Total Bilirubin 0.2 mg/dL (0.2-1.0) Aspartate Amino Transf (AST/SGOT) 36 U/L (15-37) Alanine Aminotransferase (ALT/SGPT) 32 U/L (14-59) Alkaline Phosphatase 125 U/L (46-116) Troponin I Quantitative < 0.017 ng/mL (0.000-0.055) HF-Nro-K-Type Natriuretic Peptide 428 pg/mL (0-124) Total Protein 8.5 g/dL (6.4-8.2) Albumin 3.2 g/dL (3.4-5.0) Albumin/Globulin Ratio 0.6 (1.0-1.7) Ethyl Alcohol Level 32 mg/dL (0-10) VTE Prophylaxis Ordered VTE Prophylaxis Devices: Contraindicated VTE Pharmacological Prophylaxi: Yes Assessment/Plan Assessment/Plan impression 1. syncope 2. severe chronic alcohol abuse affecting health, high risk of complications 3 hx GASTRIC ULCER 2017 WITH extensive intestinal metaplasia and ulceration. post-op dx- large penetrating lesser curve ulcer 4 x 8 cm s/p bx with cratered base 2016 4. Severe protein-caloric malnutrition 5. altered mental status sec to alcohol abuse 6. poor dentition 7. TOBACCO ABUSE 8. hyponatremia, volume depleted 9. Mild bilateral periventricular white matter hypodensities likely chronic small vessel ischemic disease. 10. HYPERTENSION 11. Hypomagnesemia PLAN TELE CT HEAD ALCOHOL WITHDRAWAL PRECAUTIONS neurology consult ECHO Cardiology consult doppler carotids neurochecks q 4 hrs consider out pt repeat EGD DUE TO INTESTINAL METAPLASIA DVT PROPHYLAXIS GI PROPHYLAXIS GI CONSULT NORVASC 5 MG PO Q AM 2 gm mgso4 iv x 1 today AGAPITO TIRADO MD Sep 29, 2018 10:42
[2018-09-29 11:00] VITALS: BP 157/97
[2018-09-29] MEDS ORDERED: 0.9 % SODIUM CHLORIDE 10 ML DISP.SYRIN. IV PRN (11:00)
[2018-09-29] MEDS ORDERED: HALOPERIDOL LACTATE 5 MG/ML VIAL. IVP PRN (11:00)
[2018-09-29] MEDS ORDERED: diphenhydrAMINE 50 MG/ML VIAL IVP PRN (11:00)
[2018-09-29] MEDS ORDERED: LORazepam 1 MG TABLET PO PRN (11:00)
[2018-09-29] MEDS ORDERED: cloNIDine HCL 0.1 MG TABLET PO PRN (11:00)
--- NOTE | 2018-09-29 11:26 | PDOC2 ---
GI CONSULT HPI: HPI: Sunni Umana is a 72 years old female patient with past medical history of hypertension and large gastric ulcer. She is currently admitted to the hospital after she was brought by EMS for syncope. Reportedly, patient was found by her family members lying down on the bathroom floor on her back. GI consulted for history of intestinal metaplasia in gastric mucosa. She had upper endoscopic exam with biopsies on 03/28/2017 that was notable for large penetrating lesser curve ulcer 4 x 8 cm with no active bleeding. Gastric biopsies obtained at that time showed moderate to marked active chronic inflammation with extensive intestinal metaplasia. There were also segments of acute inflammatory exudate consistent with ulceration. A properly controlled immunoperoxidase stain for Helicobacter showed evidence of focal granular staining, but no definitive Helicobacter organisms were identified. No evidence of malignancy. FH: Family History: Cancer Social History: Smoke: <1 pack per day ALCOHOL: occassional Drugs: None ROS: GEN: Denies fevers, chills, sweats HEENT: Denies blurred vision, sore throat CV: Denies chest pain RESP: Denies shortness of air, cough GI: Per HPI : Denies hematuria, dysuria ENDO: Denies weight changes NEURO: Denies confusion, dizziness MSK: Denies weakness, joint pain/swelling SKIN: Denies jaundice, pruritus Vitals: Vitals: Vital Signs Date Time Temp Pulse Resp B/P (MAP) Pulse Ox O2 Delivery O2 Flow Rate FiO2 09/29/18 09:00 72 13 152/75 (100) 98 Room Air 09/29/18 08:02 97.6 97.6 Labs: Labs: Laboratory Tests Test 09/29/18 08:10 White Blood Count 4.6 x10^3/uL (4.0-11.0) Red Blood Count 3.79 x10^6/uL (3.50-5.40) Hemoglobin 12.1 g/dL (12.0-15.5) Hematocrit 35.9 % (36.0-47.0) Mean Corpuscular Volume 95 fL (79-100) Mean Corpuscular Hemoglobin 32 pg (25-35) Mean Corpuscular Hemoglobin Concent 34 g/dL (31-37) Red Cell Distribution Width 13.0 % (11.5-14.5) Platelet Count 279 x10^3/uL (140-400) Neutrophils (%) (Auto) 51 % (31-73) Lymphocytes (%) (Auto) 36 % (24-48) Monocytes (%) (Auto) 7 % (0-9) Eosinophils (%) (Auto) 4 % (0-3) Basophils (%) (Auto) 2 % (0-3) Neutrophils # (Auto) 2.4 x10^3uL (1.8-7.7) Lymphocytes # (Auto) 1.6 x10^3/uL (1.0-4.8) Monocytes # (Auto) 0.3 x10^3/uL (0.0-1.1) Eosinophils # (Auto) 0.2 x10^3/uL (0.0-0.7) Basophils # (Auto) 0.1 x10^3/uL (0.0-0.2) Prothrombin Time 13.3 SEC (11.7-14.0) Prothromb Time International Ratio 1.0 (0.8-1.1) Sodium Level 129 mmol/L (136-145) Potassium Level 4.6 mmol/L (3.5-5.1) Chloride Level 94 mmol/L (98-107) Carbon Dioxide Level 25 mmol/L (21-32) Anion Gap 10 (6-14) Blood Urea Nitrogen 11 mg/dL (7-20) Creatinine 1.2 mg/dL (0.6-1.0) Estimated GFR (Cockcroft-Gault) 53.4 BUN/Creatinine Ratio 9 (6-20) Glucose Level 94 mg/dL (70-99) Calcium Level 8.7 mg/dL (8.5-10.1) Magnesium Level 1.6 mg/dL (1.8-2.4) Total Bilirubin 0.2 mg/dL (0.2-1.0) Aspartate Amino Transf (AST/SGOT) 36 U/L (15-37) Alanine Aminotransferase (ALT/SGPT) 32 U/L (14-59) Alkaline Phosphatase 125 U/L (46-116) Troponin I Quantitative < 0.017 ng/mL (0.000-0.055) HD-Veh-H-Type Natriuretic Peptide 428 pg/mL (0-124) Total Protein 8.5 g/dL (6.4-8.2) Albumin 3.2 g/dL (3.4-5.0) Albumin/Globulin Ratio 0.6 (1.0-1.7) Ethyl Alcohol Level 32 mg/dL (0-10) Allergies: Coded Allergies: Penicillins (Verified Allergy, Intermediate, rash, 03/26/14) codeine (Verified Allergy, Intermediate, Reaction unknown, 03/31/17) Patient says she has taken Lortab previously without problems. latex (Verified Allergy, Intermediate, 03/29/17) Medications: Current Medications Medications (Trade) Dose Ordered Sig/Dora Route PRN Reason Start Time Stop Time Status Last Admin Dose Admin Sodium Chloride 1,000 ml @ 100 mls/hr 1X ONCE IV 09/29/18 09:30 09/29/18 19:29 09/29/18 09:24 PE: GEN: NAD HEENT: Atraumatic, PERRLA LUNGS: CTAB HEART: RRR, no murmurs ABD: NABS, S/ND/NT, no masses EXTREMITY: No edema SKIN: No rashes, no jaundice NEURO/PSYCH: A & O 3 A/P: A/P: Sunni Umana is a 72 years old female patient with past medical history of hypertension and large gastric ulcer. She is currently admitted to the hospital after she was brought by EMS for syncope. Reportedly, patient was found by her family members lying down on the bathroom floor on her back. GI consulted for history of large penetrating gastric ulcer with intestinal metaplasia in gastric mucosa on EGD done 02/2017. Recommendations: - Continue with supportive care as per primary team - Agree with cardiology and neurology consult in setting of syncope. - PPI BID. - Follow up with GI ( ) for EGD with biopsies/mapping - Gi available for any Q's. Thank you for involving us in the care of this interesting patient. MAIKOL CERVANTES MD Sep 29, 2018 11:26
[2018-09-29] MEDS: MULTIVIT INFUSN,ADULT 4,VIT K 10 ML, THIAMINE INJ 100 MG, FOLIC ACID INJ 1 MG in IV NOR... IV SCH (11:30)
[2018-09-29] MEDS: PANTOPRAZOLE 40 MG TABLET.DR. PO SCH ×2 (11:37→17:16)
[2018-09-29] MEDS: LORazepam 1 MG TABLET PO SCH ×2 (11:37→17:16)
[2018-09-29] MEDS: amLODIPine BESYLATE 5 MG TABLET PO SCH (11:37)
[2018-09-29] MEDS ORDERED: MAGNESIUM SULFATE 3 GM in IV DEXTROSE 5% 100ML 100 ML IV ONE (12:00)
--- NOTE | 2018-09-29 14:12 | RAD ---
Clinical Indications: Syncope. Exam : Carotid Duplex with Grayscale Ultrasound and Spectral and Color Doppler Analysis: PQRS Compliance Statement - Stenosis calculations for CT, MR and conventional angiography are based upon measurement of the distal ICA diameter in accordance with the NASCET methodology. Stenosis calculations for carotid ultrasound studies are derived from validated velocity criteria which are known to correlate with the NASCET methodology. Comparison study: None available. Findings: The common, internal and external carotid arteries were examined by grayscale, color and spectral Doppler ultrasound. Moderate atherosclerotic plaque identified in the bilateral carotid bulbs and the proximal internal carotid arteries. Flow in both vertebral arteries was antegrade and normal. There is mild elevated velocity identified in the bilateral external carotid arteries measuring up to 140 cm/s.. The following are the velocities and ratios in the carotid arteries on both sides: RIGHT ICA PV: 117cm/sec RIGHT CCA PV: 79cm/sec RIGHT ICA ED: 32cm/sec RIGHT IC/CCPV: 1.8 RIGHT VERTEBRAL: antegrade flow RIGHT % STENOSIS: Less than 50 percent LEFT ICA PV: 114cm/sec LEFT CCA PV: 104cm/sec LEFT ICA ED: 24cm/sec LEFT IC/CCPV: 1.5 LEFT VERTEBRAL: antegrade flow LEFT % STENOSIS: Less than 50 percent <50% ICA Stenosis: PSV < 125cm/s (EDV < 40cm/s; SVR < 2.0) 50-69% ICA Stenosis: PSV < 125-229cm/s (EDV 40-99cm/s; SVR 2.0-3.9) >70% ICA Stenosis: PSV > 230cm/s (EDV >100cm/s; SVR >4.0) Impression: 1. No evidence of hemodynamically significant stenosis. 2. Moderate atherosclerotic plaque identified in the bilateral carotid bulbs and the proximal internal carotid arteries. Electronically signed by: Jacinto Moreno MD (09/29/2018 2:08 PM) [facility]
[2018-09-29 15:00] VITALS: BP 139/69
--- NOTE | 2018-09-29 15:00 | PDOC2 ---
NEUROLOGY CONSULT Date of Admission Date of Admission DATE: 09/29/18 TIME: 14:43 Reason for Consult Reason for Consult: IMPRESSION: Syncope. Toxic encephalopathy. Metabolic encephalopathy. ETOH level 32. Hyponatremia, Na+ 129, Cl 94. HTN. GI ulcer, Hx. Smoking. RECOMMENDATIONS/PLAN: Detoxication treatment. Vit B 1 100 mg daily. Correct electrolytes imbalances. Treat medical diseases. EEG as outpatient base [place]. Discussed with her sons on the phone and at bedside on 09/29/18. HCT: NO ICH or SAH. HISTORY OF THE PRESENT ILLNESS: This is a 72 -year-old AA female patient who was brought by EMS to the ER of [facility] due to having a syncopal episode. Patient does not remember the episode. Per EMS, she was found in the bathroom laying flat on her back. Uncertain as to how long she was unconscious till found by family members. Patient complains of pain in the back of the head. No loss of bowel or bladder control. No weakness on either the left or the right side. No palpitations. Nothing seems to make the symptoms better or worse.[]Patient is unable to provide information. PAST MEDICAL HISTORY: COPD, GI Bleed, Hypertension. Dementia. PAST SURGERY HISTORY: Appendectomy, Bilateral cataracts. ALLERGY: Unknown MEDICATIONS: Refer to [facility] HISTORY: Non contributory. SOCIAL HISTORY: Lives with family at home. Denies illicit drug use. She smokes less than 1 pack of cigarettes a day for many years. She drinks but no detailed information. is provided.. REVIEW OF SYSTEMS: Constitutional: weight loss. Head: No traumatic brain or head injury. Skin: No edema. Ear: No infection. Eyes: No vision loss or color blindness. Nose: No bleeding or purulent discharges. Hearing: Hearing decrease. Neck: No injury. Breast: No history of cancer, masses,or discharges. Cardiac: HTN. Pulmonary: Smoking.. GI: No GI ulcer. Urinary/genital: UTI. Endocrinologic: No cousin face, craniofacial dysmorphism, polydactyly. Skeletomuscular: No muscular atrophy, deformity. Neurological: see HP. Psychiatric: Substance use/abuse. Otherwise, not [id number] review of systems. PHYSICAL EXAMINATION: General appearance is in subacute distress. HEENT: Normocephalic and nontraumatic. Eyes, nose, ears, and throat are unremarkable. Neck is supple. No lymphadenopathy. No crepitus. Cardiovascular: S1, S2, regular rate and rhythm. Pulmonary: Clear to auscultation bilaterally. Abdomen: Bowel sounds are positive. Extremities: No rash, lesions, or edema. No restriction of range of motion NEUROLOGICAL EXAMINATION: Awake. Not oriented to time, place but knew person. PERRL. EOMI. CN: no focal findings. Muscle tone: within normal. Muscle strength: 5- DTR: 2 Plantar reflex: Neutral response bilaterally Gait: not examined in bed. Sensory exam: no abnormal findings. No acute cerebellar signs elicited. F-T-N test fine. Current Medications Current Medications Current Medications Ondansetron HCl (Zofran) 4 mg PRN Q8HRS PRN IV NAUSEA/VOMITING; Start 09/29/18 at 09:30; Stop 09/30/18 at 09:29 Acetaminophen (Tylenol) 650 mg PRN Q4HRS PRN PO FEVER or PAIN; Start 09/29/18 at 09:30; Stop 09/30/18 at 09:29 Sodium Chloride 1,000 ml @ 100 mls/hr 1X ONCE IV Last administered on at 09:24; Start 09/29/18 at 09:30; Stop 09/29/18 at 19:29 Sodium Chloride (Normal Saline Flush) 10 ml QSHIFT PRN IV AFTER MEDS AND BLOOD DRAWS; Start 09/29/18 at 11:00 Multivitamins 10 ml/Thiamine HCl 100 mg/Folic Acid 1 mg/Sodium Chloride 1,011.2 ml @ 100 mls/ hr DAILY IV Last administered on 09/29/18at 11:30; Start 09/29/18 at 11:30; Stop 10/03/18 at 19:07 Lorazepam (Ativan) 1 mg Q6H PO Last administered on 09/29/18at 11:37; Start at 12:00; Stop 09/30/18 at 18:01 Lorazepam (Ativan) 4 mg PRN Q1HR PRN PO For CIWA 8-14; Start 09/29/18 at 11:00 Lorazepam (Ativan) 2 mg PRN Q1HR PRN IV For CIWA 8-14; Start 09/29/18 at 11:00 Haloperidol Lactate (Haldol Inj) 5 mg PRN Q4HRS PRN IVP Hallucinatns,Confusn, Delirium; Start 09/29/18 at 11:00 Diphenhydramine HCl (Benadryl) 25 mg PRN Q15MIN PRN IVP EPS symptoms 2'Haldol admin; Start 09/29/18 at 11:00 Clonidine HCl (Catapres) 0.1 mg PRN Q1HR PRN PO SBP > 180 or DBP > 100, MRX3; Start 09/29/18 at 11:00 Lorazepam (Ativan) 2 mg PRN Q15MIN PRN IV ; Start 09/29/18 at 11:00; Status UNV Chlorhexidine Gluconate (Peridex) 15 ml BID SWSP ; Start 09/29/18 at 21:00 Pantoprazole Sodium (Protonix) 40 mg BIDAC PO Last administered on 09/29/18at 11: 37; Start 09/29/18 at 11:30 Amlodipine Besylate (Norvasc) 5 mg DAILY PO Last administered on 09/29/18at 11:37 ; Start 09/29/18 at 12:00 Magnesium Sulfate 3 gm/Dextrose 106 ml @ 35.333 mls/ hr 1X ONCE IV Last administered on 09/29/18at 11:38; Start 09/29/18 at 12:00; Stop 09/29/18 at 14:59 Multivitamins (Thera M Plus) 1 tab DAILY PO ; Start 09/30/18 at 09:00 Active Scripts Active Pantoprazole Sodium 40 Mg Tablet.dr 40 Mg PO BIDAC 30 Days Peridex (Chlorhexidine Gluconate) 15 Ml Mouthwash 15 Ml PO BID Swish for 30 seconds and spit Allergies Allergies: Allergies Coded Allergies Type Severity Reaction Last Updated Verified Penicillins Allergy Intermediate rash 03/26/14 Yes codeine Allergy Intermediate Reaction unknown 03/31/17 Yes latex Allergy Intermediate 03/29/17 Yes ROS Review of System The patient denies any associated fevers, chills, headache, ear pain, rhinorrhea , sore throat, stiff neck, productive cough, chest pain, shortness of breath, back or flank pain, abdominal pain, nausea, vomiting, diarrhea, constipation, dysuria, rash, numbness, weakness, tingling, incontinence, difficulty ambulating, or diaphoresis. Physical Exam Physical Exam General: Well developed, well nourished, no acute distress, well appearing HEENT: Pupils equally round and reactive to light, EOMI, no discharge, normal conjunctiva Neck: Supple, no nuchal rigidity, no JVD, trachea midline, no tenderness Cardiac: RRR, no murmurs, no gallops, no rubs Chest/Lungs: CTAB, no wheeze, no rhonchi, no crackles Abdomen: soft, non-distended, no guarding, no peritoneal signs, non-tender Back: No tenderness Extremities: no edema, pulses intact, non-tender,capillary refill <3 sec bilateral upper and lower extremities, Neuro: Alert and oriented x 4, no focal deficits, normal speech Vitals Vitals: Vital Signs Date Time Temp Pulse Resp B/P (MAP) Pulse Ox O2 Delivery O2 Flow Rate FiO2 09/29/18 11:37 76 157/97 09/29/18 11:00 97.3 18 98 Room Air 97.3 Labs Labs Laboratory Tests Test 09/29/18 08:10 09/29/18 12:25 White Blood Count 4.6 x10^3/uL (4.0-11.0) Red Blood Count 3.79 x10^6/uL (3.50-5.40) Hemoglobin 12.1 g/dL (12.0-15.5) Hematocrit 35.9 % (36.0-47.0) Mean Corpuscular Volume 95 fL (79-100) Mean Corpuscular Hemoglobin 32 pg (25-35) Mean Corpuscular Hemoglobin Concent 34 g/dL (31-37) Red Cell Distribution Width 13.0 % (11.5-14.5) Platelet Count 279 x10^3/uL (140-400) Neutrophils (%) (Auto) 51 % (31-73) Lymphocytes (%) (Auto) 36 % (24-48) Monocytes (%) (Auto) 7 % (0-9) Eosinophils (%) (Auto) 4 % (0-3) Basophils (%) (Auto) 2 % (0-3) Neutrophils # (Auto) 2.4 x10^3uL (1.8-7.7) Lymphocytes # (Auto) 1.6 x10^3/uL (1.0-4.8) Monocytes # (Auto) 0.3 x10^3/uL (0.0-1.1) Eosinophils # (Auto) 0.2 x10^3/uL (0.0-0.7) Basophils # (Auto) 0.1 x10^3/uL (0.0-0.2) Prothrombin Time 13.3 SEC (11.7-14.0) Prothromb Time International Ratio 1.0 (0.8-1.1) Sodium Level 129 mmol/L (136-145) Potassium Level 4.6 mmol/L (3.5-5.1) Chloride Level 94 mmol/L (98-107) Carbon Dioxide Level 25 mmol/L (21-32) Anion Gap 10 (6-14) Blood Urea Nitrogen 11 mg/dL (7-20) Creatinine 1.2 mg/dL (0.6-1.0) Estimated GFR (Cockcroft-Gault) 53.4 BUN/Creatinine Ratio 9 (6-20) Glucose Level 94 mg/dL (70-99) Calcium Level 8.7 mg/dL (8.5-10.1) Magnesium Level 1.6 mg/dL (1.8-2.4) Total Bilirubin 0.2 mg/dL (0.2-1.0) Aspartate Amino Transf (AST/SGOT) 36 U/L (15-37) Alanine Aminotransferase (ALT/SGPT) 32 U/L (14-59) Alkaline Phosphatase 125 U/L (46-116) Troponin I Quantitative < 0.017 ng/mL (0.000-0.055) < 0.017 ng/mL (0.000-0.055) VI-Yew-F-Type Natriuretic Peptide 428 pg/mL (0-124) Total Protein 8.5 g/dL (6.4-8.2) Albumin 3.2 g/dL (3.4-5.0) Albumin/Globulin Ratio 0.6 (1.0-1.7) Ethyl Alcohol Level 32 mg/dL (0-10) Free Thyroxine 0.96 ng/dL (0.76-1.46) Laboratory Tests Test 09/29/18 08:10 09/29/18 12:25 White Blood Count 4.6 x10^3/uL (4.0-11.0) Red Blood Count 3.79 x10^6/uL (3.50-5.40) Hemoglobin 12.1 g/dL (12.0-15.5) Hematocrit 35.9 % (36.0-47.0) Mean Corpuscular Volume 95 fL (79-100) Mean Corpuscular Hemoglobin 32 pg (25-35) Mean Corpuscular Hemoglobin Concent 34 g/dL (31-37) Red Cell Distribution Width 13.0 % (11.5-14.5) Platelet Count 279 x10^3/uL (140-400) Neutrophils (%) (Auto) 51 % (31-73) Lymphocytes (%) (Auto) 36 % (24-48) Monocytes (%) (Auto) 7 % (0-9) Eosinophils (%) (Auto) 4 % (0-3) Basophils (%) (Auto) 2 % (0-3) Neutrophils # (Auto) 2.4 x10^3uL (1.8-7.7) Lymphocytes # (Auto) 1.6 x10^3/uL (1.0-4.8) Monocytes # (Auto) 0.3 x10^3/uL (0.0-1.1) Eosinophils # (Auto) 0.2 x10^3/uL (0.0-0.7) Basophils # (Auto) 0.1 x10^3/uL (0.0-0.2) Prothrombin Time 13.3 SEC (11.7-14.0) Prothromb Time International Ratio 1.0 (0.8-1.1) Sodium Level 129 mmol/L (136-145) Potassium Level 4.6 mmol/L (3.5-5.1) Chloride Level 94 mmol/L (98-107) Carbon Dioxide Level 25 mmol/L (21-32) Anion Gap 10 (6-14) Blood Urea Nitrogen 11 mg/dL (7-20) Creatinine 1.2 mg/dL (0.6-1.0) Estimated GFR (Cockcroft-Gault) 53.4 BUN/Creatinine Ratio 9 (6-20) Glucose Level 94 mg/dL (70-99) Calcium Level 8.7 mg/dL (8.5-10.1) Magnesium Level 1.6 mg/dL (1.8-2.4) Total Bilirubin 0.2 mg/dL (0.2-1.0) Aspartate Amino Transf (AST/SGOT) 36 U/L (15-37) Alanine Aminotransferase (ALT/SGPT) 32 U/L (14-59) Alkaline Phosphatase 125 U/L (46-116) Troponin I Quantitative < 0.017 ng/mL (0.000-0.055) < 0.017 ng/mL (0.000-0.055) JQ-Amv-C-Type Natriuretic Peptide 428 pg/mL (0-124) Total Protein 8.5 g/dL (6.4-8.2) Albumin 3.2 g/dL (3.4-5.0) Albumin/Globulin Ratio 0.6 (1.0-1.7) Ethyl Alcohol Level 32 mg/dL (0-10) Free Thyroxine 0.96 ng/dL (0.76-1.46) NITESH RANDHAWA MD Sep 29, 2018 15:00
--- NOTE | 2018-09-29 15:56 | RAD ---
Examination: 2 views of the left scapula HISTORY: History of left shoulder pain after fall COMPARISON: None available FINDINGS: No evidence of displaced fracture of the left scapula visualized on this examination. The humerus head appears to be within the glenoid. Moderate degenerative changes identified in the glenohumeral and acromioclavicular joints. IMPRESSION: 1. No evidence of displaced fracture of the scapula. 2. Moderate degenerative changes left glenohumeral joint, acromioclavicular joint. However evaluation of the humerus head is limited on this limited examination. Recommend 3 views of the left shoulder for further evaluation. Electronically signed by: Jacinto Moreno MD (09/29/2018 3:53 PM) [facility]
--- NOTE | 2018-09-29 17:27 | EKG ---
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
[2018-09-29 19:00] VITALS: BP 138/59
[2018-09-29] MEDS: CHLORHEXIDINE 0.12% 15 ML MOUTHWASH. SWSP SCH (20:38)
[2018-09-29 20:55] LABS: BILIRUBIN,URINE NEGATIVE (NEG); CLARITY,URINE CLEAR; COLOR,URINE YELLOW; NITRITE,URINE NEGATIVE (NEG); PROTEIN,URINE NEGATIVE (NEG-TRACE); UROBILINOGEN,URINE 0.2 mg/dL (0.2 mg/dL)
[2018-09-29 20:59] LABS: BACTERIA,URINE MANY /HPF (0-FEW); RBC,URINE 0 /HPF (0-2)
[2018-09-29 21:00] LABS: SQUAMOUS EPITHELIAL CELL,UR FEW /LPF
[2018-09-29 21:01] LABS: BARBITURATES NEG (NEG); BENZODIAZEPINES NEG (NEG); CANNABINOIDS NEG (NEG); COCAINE NEG (NEG); METHADONE NEG (NEG); OPIATES NEG (NEG); PHENCYCLIDINE NEG (NEG)
[2018-09-29 21:02] LABS: AMPHETAMINE/METHAMPHETAMINE NEG (NEG)
[2018-09-29 23:00] VITALS: BP 150/61
[2018-09-30] MEDS: LORazepam 1 MG TABLET PO SCH ×4 (00:27→17:41)
[2018-09-30 03:04] VITALS: BP 134/53
[2018-09-30 05:54] LABS: BASO # 0.1 x10^3/uL (0.0-0.2); BASO % 2 % (0-3); EOS # 0.2 x10^3/uL (0.0-0.7); EOS % 4 % (0-3); HEMATOCRIT 29.3 % (36.0-47.0); LYMPH # 1.4 x10^3/uL (1.0-4.8); LYMPH % 33 % (24-48); MEAN CORPUSCULAR HEMOGLOBIN 32 pg (25-35); MEAN CORPUSCULAR HGB CONC 34 g/dL (31-37); MEAN CORPUSCULAR VOLUME 93 fL (79-100); MONO # 0.6 x10^3/uL (0.0-1.1); MONO % 14 % (0-9); NEUT # 2.1 x10^3uL (1.8-7.7); NEUT % 48 % (31-73); PLATELET COUNT 230 x10^3/uL (140-400); RED BLOOD COUNT 3.14 x10^6/uL (3.50-5.40); RED CELL DISTRIBUTION WIDTH 12.9 % (11.5-14.5); WHITE BLOOD COUNT 4.3 x10^3/uL (4.0-11.0)
[2018-09-30 06:06] LABS: ALBUMIN 2.8 g/dL (3.4-5.0); ALBUMIN/GLOBULIN RATIO 0.6 (1.0-1.7); CALCIUM 8.3 mg/dL (8.5-10.1); CREATININE 1.2 mg/dL (0.6-1.0); GFR 53.4; POTASSIUM 4.6 mmol/L (3.5-5.1); TOTAL BILIRUBIN 0.4 mg/dL (0.2-1.0); TOTAL PROTEIN 7.2 g/dL (6.4-8.2)
[2018-09-30 07:00] VITALS: BP 150/71
[2018-09-30] MEDS: PANTOPRAZOLE 40 MG TABLET.DR. PO SCH ×2 (07:56→16:26)
--- NOTE | 2018-09-30 08:13 | PDOC ---
PROGRESS NOTES Chief Complaint Chief Complaint Syncope. Toxic encephalopathy. Metabolic encephalopathy. ETOH level 32. Hyponatremia, Na+ 129, Cl 94. HTN. Smoking. Severe chronic alcohol abuse affecting health, high risk of complications hx GASTRIC ULCER 2016 WITH extensive intestinal metaplasia and ulceration. 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 Hypomagnesemia History of Present Illness History of Present Illness 72 years old female patient with past medical history of hypertension and large gastric ulcer. She is currently admitted to the hospital after she was brought by EMS for syncope. Reportedly, patient was found by her family members lying down on the bathroom floor on her back. GI consulted for history of intestinal metaplasia in gastric mucosa. [She had upper endoscopic exam with biopsies on that was notable for large penetrating lesser curve ulcer 4 x 8 cm with no active bleeding. Gastric biopsies obtained at that time showed moderate to marked active chronic inflammation with extensive intestinal metaplasia. There were also segments of acute inflammatory exudate consistent with ulceration, neg for h. pylori. No evidence of malignancy.] Seen by cardiology and neurology for syncope. Echo: The left ventricular systolic function is normal and the ejection fraction is within normal range. The Ejection Fraction is 55%. There is normal LV segmental wall motion. Doppler and Color Flow revealed mild tricuspid regurgitation. There is moderate pulmonary hypertension. The PA pressure was estimated at 46 mmHg. Carotid dopplers with no significant stenosis Still feeling a little unsteady. She is not dizzy. She notes she drinks a pint of alcohol every 2 days. A/P: PT/OT to see Neurology ok with 19/02 care Vitals Vitals Vital Signs Date Time Temp Pulse Resp B/P (MAP) Pulse Ox O2 Delivery O2 Flow Rate FiO2 09/30/18 03:04 97.9 84 20 134/53 (80) 97 Room Air 97.9 Physical Exam General: Oriented X3, Cooperative, No acute distress Lungs: Clear Abdomen: Soft Extremities: No cyanosis Labs LABS Laboratory Tests Test 09/29/18 12:25 09/29/18 15:20 09/29/18 20:30 09/30/18 04:33 Troponin I Quantitative < 0.017 ng/mL (0.000-0.055) < 0.017 ng/mL (0.000-0.055) Free Thyroxine 0.96 ng/dL (0.76-1.46) Urine Collection Type Unknown Urine Color Yellow Urine Clarity Clear Urine pH 6.0 Urine Specific Newton 1.010 Urine Protein Negative mg/dL (NEG-TRACE) Urine Glucose (UA) Negative mg/dL (NEG) Urine Ketones (Stick) Negative mg/dL (NEG) Urine Blood Negative (NEG) Urine Nitrite Negative (NEG) Urine Bilirubin Negative (NEG) Urine Urobilinogen Dipstick 0.2 mg/dL (0.2 mg/dL) Urine Leukocyte Esterase Small (NEG) Urine RBC 0 /HPF (0-2) Urine WBC 5-10 /HPF (0-4) Urine Squamous Epithelial Cells Few /LPF Urine Bacteria Many /HPF (0-FEW) Urine Opiates Screen Neg (NEG) Urine Methadone Screen Neg (NEG) Urine Barbiturates Neg (NEG) Urine Phencyclidine Screen Neg (NEG) Urine Amphetamine/Methamphetamine Neg (NEG) Urine Benzodiazepines Screen Neg (NEG) Urine Cocaine Screen Neg (NEG) Urine Cannabinoids Screen Neg (NEG) Urine Ethyl Alcohol Neg (NEG) White Blood Count 4.3 x10^3/uL (4.0-11.0) Red Blood Count 3.14 x10^6/uL (3.50-5.40) Hemoglobin 10.0 g/dL (12.0-15.5) Hematocrit 29.3 % (36.0-47.0) Mean Corpuscular Volume 93 fL (79-100) Mean Corpuscular Hemoglobin 32 pg (25-35) Mean Corpuscular Hemoglobin Concent 34 g/dL (31-37) Red Cell Distribution Width 12.9 % (11.5-14.5) Platelet Count 230 x10^3/uL (140-400) Neutrophils (%) (Auto) 48 % (31-73) Lymphocytes (%) (Auto) 33 % (24-48) Monocytes (%) (Auto) 14 % (0-9) Eosinophils (%) (Auto) 4 % (0-3) Basophils (%) (Auto) 2 % (0-3) Neutrophils # (Auto) 2.1 x10^3uL (1.8-7.7) Lymphocytes # (Auto) 1.4 x10^3/uL (1.0-4.8) Monocytes # (Auto) 0.6 x10^3/uL (0.0-1.1) Eosinophils # (Auto) 0.2 x10^3/uL (0.0-0.7) Basophils # (Auto) 0.1 x10^3/uL (0.0-0.2) Sodium Level 133 mmol/L (136-145) Potassium Level 4.6 mmol/L (3.5-5.1) Chloride Level 100 mmol/L (98-107) Carbon Dioxide Level 25 mmol/L (21-32) Anion Gap 8 (6-14) Blood Urea Nitrogen 12 mg/dL (7-20) Creatinine 1.2 mg/dL (0.6-1.0) Estimated GFR (Cockcroft-Gault) 53.4 BUN/Creatinine Ratio 10 (6-20) Glucose Level 87 mg/dL (70-99) Calcium Level 8.3 mg/dL (8.5-10.1) Total Bilirubin 0.4 mg/dL (0.2-1.0) Aspartate Amino Transf (AST/SGOT) 31 U/L (15-37) Alanine Aminotransferase (ALT/SGPT) 28 U/L (14-59) Alkaline Phosphatase 127 U/L (46-116) Total Protein 7.2 g/dL (6.4-8.2) Albumin 2.8 g/dL (3.4-5.0) Albumin/Globulin Ratio 0.6 (1.0-1.7) Comment Review of Relevant I have reviewed the following items mari (where applicable) has been applied. Labs Laboratory Tests Test 09/29/18 08:10 09/29/18 12:25 09/29/18 15:20 09/29/18 20:30 White Blood Count 4.6 x10^3/uL (4.0-11.0) Red Blood Count 3.79 x10^6/uL (3.50-5.40) Hemoglobin 12.1 g/dL (12.0-15.5) Hematocrit 35.9 % (36.0-47.0) Mean Corpuscular Volume 95 fL (79-100) Mean Corpuscular Hemoglobin 32 pg (25-35) Mean Corpuscular Hemoglobin Concent 34 g/dL (31-37) Red Cell Distribution Width 13.0 % (11.5-14.5) Platelet Count 279 x10^3/uL (140-400) Neutrophils (%) (Auto) 51 % (31-73) Lymphocytes (%) (Auto) 36 % (24-48) Monocytes (%) (Auto) 7 % (0-9) Eosinophils (%) (Auto) 4 % (0-3) Basophils (%) (Auto) 2 % (0-3) Neutrophils # (Auto) 2.4 x10^3uL (1.8-7.7) Lymphocytes # (Auto) 1.6 x10^3/uL (1.0-4.8) Monocytes # (Auto) 0.3 x10^3/uL (0.0-1.1) Eosinophils # (Auto) 0.2 x10^3/uL (0.0-0.7) Basophils # (Auto) 0.1 x10^3/uL (0.0-0.2) Prothrombin Time 13.3 SEC (11.7-14.0) Prothromb Time International Ratio 1.0 (0.8-1.1) Sodium Level 129 mmol/L (136-145) Potassium Level 4.6 mmol/L (3.5-5.1) Chloride Level 94 mmol/L (98-107) Carbon Dioxide Level 25 mmol/L (21-32) Anion Gap 10 (6-14) Blood Urea Nitrogen 11 mg/dL (7-20) Creatinine 1.2 mg/dL (0.6-1.0) Estimated GFR (Cockcroft-Gault) 53.4 BUN/Creatinine Ratio 9 (6-20) Glucose Level 94 mg/dL (70-99) Calcium Level 8.7 mg/dL (8.5-10.1) Magnesium Level 1.6 mg/dL (1.8-2.4) Total Bilirubin 0.2 mg/dL (0.2-1.0) Aspartate Amino Transf (AST/SGOT) 36 U/L (15-37) Alanine Aminotransferase (ALT/SGPT) 32 U/L (14-59) Alkaline Phosphatase 125 U/L (46-116) Troponin I Quantitative < 0.017 ng/mL (0.000-0.055) < 0.017 ng/mL (0.000-0.055) < 0.017 ng/mL (0.000-0.055) LS-Qzc-[id number]-Type Natriuretic Peptide 428 pg/mL (0-124) Total Protein 8.5 g/dL (6.4-8.2) Albumin 3.2 g/dL (3.4-5.0) Albumin/Globulin Ratio 0.6 (1.0-1.7) Ethyl Alcohol Level 32 mg/dL (0-10) Free Thyroxine 0.96 ng/dL (0.76-1.46) Urine Collection Type Unknown Urine Color Yellow Urine Clarity Clear Urine pH 6.0 Urine Specific Newton 1.010 Urine Protein Negative mg/dL (NEG-TRACE) Urine Glucose (UA) Negative mg/dL (NEG) Urine Ketones (Stick) Negative mg/dL (NEG) Urine Blood Negative (NEG) Urine Nitrite Negative (NEG) Urine Bilirubin Negative (NEG) Urine Urobilinogen Dipstick 0.2 mg/dL (0.2 mg/dL) Urine Leukocyte Esterase Small (NEG) Urine RBC 0 /HPF (0-2) Urine WBC 5-10 /HPF (0-4) Urine Squamous Epithelial Cells Few /LPF Urine Bacteria Many /HPF (0-FEW) Urine Opiates Screen Neg (NEG) Urine Methadone Screen Neg (NEG) Urine Barbiturates Neg (NEG) Urine Phencyclidine Screen Neg (NEG) Urine Amphetamine/Methamphetamine Neg (NEG) Urine Benzodiazepines Screen Neg (NEG) Urine Cocaine Screen Neg (NEG) Urine Cannabinoids Screen Neg (NEG) Urine Ethyl Alcohol Neg (NEG) Test 09/30/18 04:33 White Blood Count 4.3 x10^3/uL (4.0-11.0) Red Blood Count 3.14 x10^6/uL (3.50-5.40) Hemoglobin 10.0 g/dL (12.0-15.5) Hematocrit 29.3 % (36.0-47.0) Mean Corpuscular Volume 93 fL (79-100) Mean Corpuscular Hemoglobin 32 pg (25-35) Mean Corpuscular Hemoglobin Concent 34 g/dL (31-37) Red Cell Distribution Width 12.9 % (11.5-14.5) Platelet Count 230 x10^3/uL (140-400) Neutrophils (%) (Auto) 48 % (31-73) Lymphocytes (%) (Auto) 33 % (24-48) Monocytes (%) (Auto) 14 % (0-9) Eosinophils (%) (Auto) 4 % (0-3) Basophils (%) (Auto) 2 % (0-3) Neutrophils # (Auto) 2.1 x10^3uL (1.8-7.7) Lymphocytes # (Auto) 1.4 x10^3/uL (1.0-4.8) Monocytes # (Auto) 0.6 x10^3/uL (0.0-1.1) Eosinophils # (Auto) 0.2 x10^3/uL (0.0-0.7) Basophils # (Auto) 0.1 x10^3/uL (0.0-0.2) Sodium Level 133 mmol/L (136-145) Potassium Level 4.6 mmol/L (3.5-5.1) Chloride Level 100 mmol/L (98-107) Carbon Dioxide Level 25 mmol/L (21-32) Anion Gap 8 (6-14) Blood Urea Nitrogen 12 mg/dL (7-20) Creatinine 1.2 mg/dL (0.6-1.0) Estimated GFR (Cockcroft-Gault) 53.4 BUN/Creatinine Ratio 10 (6-20) Glucose Level 87 mg/dL (70-99) Calcium Level 8.3 mg/dL (8.5-10.1) Total Bilirubin 0.4 mg/dL (0.2-1.0) Aspartate Amino Transf (AST/SGOT) 31 U/L (15-37) Alanine Aminotransferase (ALT/SGPT) 28 U/L (14-59) Alkaline Phosphatase 127 U/L (46-116) Total Protein 7.2 g/dL (6.4-8.2) Albumin 2.8 g/dL (3.4-5.0) Albumin/Globulin Ratio 0.6 (1.0-1.7) Laboratory Tests Test 09/29/18 12:25 09/29/18 15:20 09/29/18 20:30 09/30/18 04:33 Troponin I Quantitative < 0.017 ng/mL (0.000-0.055) < 0.017 ng/mL (0.000-0.055) Free Thyroxine 0.96 ng/dL (0.76-1.46) Urine Collection Type Unknown Urine Color Yellow Urine Clarity Clear Urine pH 6.0 Urine Specific Newton 1.010 Urine Protein Negative mg/dL (NEG-TRACE) Urine Glucose (UA) Negative mg/dL (NEG) Urine Ketones (Stick) Negative mg/dL (NEG) Urine Blood Negative (NEG) Urine Nitrite Negative (NEG) Urine Bilirubin Negative (NEG) Urine Urobilinogen Dipstick 0.2 mg/dL (0.2 mg/dL) Urine Leukocyte Esterase Small (NEG) Urine RBC 0 /HPF (0-2) Urine WBC 5-10 /HPF (0-4) Urine Squamous Epithelial Cells Few /LPF Urine Bacteria Many /HPF (0-FEW) Urine Opiates Screen Neg (NEG) Urine Methadone Screen Neg (NEG) Urine Barbiturates Neg (NEG) Urine Phencyclidine Screen Neg (NEG) Urine Amphetamine/Methamphetamine Neg (NEG) Urine Benzodiazepines Screen Neg (NEG) Urine Cocaine Screen Neg (NEG) Urine Cannabinoids Screen Neg (NEG) Urine Ethyl Alcohol Neg (NEG) White Blood Count 4.3 x10^3/uL (4.0-11.0) Red Blood Count 3.14 x10^6/uL (3.50-5.40) Hemoglobin 10.0 g/dL (12.0-15.5) Hematocrit 29.3 % (36.0-47.0) Mean Corpuscular Volume 93 fL (79-100) Mean Corpuscular Hemoglobin 32 pg (25-35) Mean Corpuscular Hemoglobin Concent 34 g/dL (31-37) Red Cell Distribution Width 12.9 % (11.5-14.5) Platelet Count 230 x10^3/uL (140-400) Neutrophils (%) (Auto) 48 % (31-73) Lymphocytes (%) (Auto) 33 % (24-48) Monocytes (%) (Auto) 14 % (0-9) Eosinophils (%) (Auto) 4 % (0-3) Basophils (%) (Auto) 2 % (0-3) Neutrophils # (Auto) 2.1 x10^3uL (1.8-7.7) Lymphocytes # (Auto) 1.4 x10^3/uL (1.0-4.8) Monocytes # (Auto) 0.6 x10^3/uL (0.0-1.1) Eosinophils # (Auto) 0.2 x10^3/uL (0.0-0.7) Basophils # (Auto) 0.1 x10^3/uL (0.0-0.2) Sodium Level 133 mmol/L (136-145) Potassium Level 4.6 mmol/L (3.5-5.1) Chloride Level 100 mmol/L (98-107) Carbon Dioxide Level 25 mmol/L (21-32) Anion Gap 8 (6-14) Blood Urea Nitrogen 12 mg/dL (7-20) Creatinine 1.2 mg/dL (0.6-1.0) Estimated GFR (Cockcroft-Gault) 53.4 BUN/Creatinine Ratio 10 (6-20) Glucose Level 87 mg/dL (70-99) Calcium Level 8.3 mg/dL (8.5-10.1) Total Bilirubin 0.4 mg/dL (0.2-1.0) Aspartate Amino Transf (AST/SGOT) 31 U/L (15-37) Alanine Aminotransferase (ALT/SGPT) 28 U/L (14-59) Alkaline Phosphatase 127 U/L (46-116) Total Protein 7.2 g/dL (6.4-8.2) Albumin 2.8 g/dL (3.4-5.0) Albumin/Globulin Ratio 0.6 (1.0-1.7) Medications Current Medications Ondansetron HCl (Zofran) 4 mg PRN Q8HRS PRN IV NAUSEA/VOMITING; Start 09/29/18 at 09:30; Stop 09/30/18 at 09:29 Acetaminophen (Tylenol) 650 mg PRN Q4HRS PRN PO FEVER or PAIN; Start 09/29/18 at 09:30; Stop 09/30/18 at 09:29 Sodium Chloride 1,000 ml @ 100 mls/hr 1X ONCE IV Last administered on at 09:24; Start 09/29/18 at 09:30; Stop 09/29/18 at 19:29; Status DC Sodium Chloride (Normal Saline Flush) 10 ml QSHIFT PRN IV AFTER MEDS AND BLOOD DRAWS; Start 09/29/18 at 11:00 Multivitamins 10 ml/Thiamine HCl 100 mg/Folic Acid 1 mg/Sodium Chloride 1,011.2 ml @ 100 mls/ hr DAILY IV Last administered on 09/29/18at 11:30; Start 09/29/18 at 11:30; Stop 10/03/18 at 19:07 Lorazepam (Ativan) 1 mg Q6H PO Last administered on 09/30/18at 00:27; Start at 12:00; Stop 09/30/18 at 18:01 Lorazepam (Ativan) 4 mg PRN Q1HR PRN PO For CIWA 8-14; Start 09/29/18 at 11:00 Lorazepam (Ativan) 2 mg PRN Q1HR PRN IV For CIWA 8-14; Start 09/29/18 at 11:00 Haloperidol Lactate (Haldol Inj) 5 mg PRN Q4HRS PRN IVP Hallucinatns,Confusn, Delirium; Start 09/29/18 at 11:00 Diphenhydramine HCl (Benadryl) 25 mg PRN Q15MIN PRN IVP EPS symptoms 2'Haldol admin; Start 09/29/18 at 11:00 Clonidine HCl (Catapres) 0.1 mg PRN Q1HR PRN PO SBP > 180 or DBP > 100, MRX3; Start 09/29/18 at 11:00 Lorazepam (Ativan) 2 mg PRN Q15MIN PRN IV ; Start 09/29/18 at 11:00; Status UNV Chlorhexidine Gluconate (Peridex) 15 ml BID SWSP Last administered on 09/29/18at 20:38; Start 09/29/18 at 21:00 Pantoprazole Sodium (Protonix) 40 mg BIDAC PO Last administered on 09/30/18at 07: 56; Start 09/29/18 at 11:30 Amlodipine Besylate (Norvasc) 5 mg DAILY PO Last administered on 09/29/18at 11:37 ; Start 09/29/18 at 12:00 Magnesium Sulfate 3 gm/Dextrose 106 ml @ 35.333 mls/ hr 1X ONCE IV Last administered on 09/29/18at 11:38; Start 09/29/18 at 12:00; Stop 09/29/18 at 14:59; Status DC Multivitamins (Thera M Plus) 1 tab DAILY PO ; Start 10/04/18 at 09:00 Thiamine Mononitrate (Vitamin B-1) 100 mg DAILY PO ; Start 10/04/18 at 09:00 Active Scripts Active Pantoprazole Sodium 40 Mg Tablet.dr 40 Mg PO BIDAC 30 Days Peridex (Chlorhexidine Gluconate) 15 Ml Mouthwash 15 Ml PO BID Swish for 30 seconds and spit Vitals/I & O Vital Sign - Last 24 Hours 09/29/18 09/29/18 09/29/18 09/29/18 08:30 09:00 11:00 11:37 Temp 97.3 97.3 Pulse 72 76 76 Resp 13 18 B/P (MAP) 160/72 (101) 152/75 (100) 157/97 (117) 157/97 Pulse Ox 98 98 O2 Delivery Room Air Room Air 09/29/18 09/29/18 09/29/18 09/29/18 15:00 19:00 20:00 23:00 Temp 97.4 98.4 98.2 97.4 98.4 98.2 Pulse 96 93 80 Resp 17 20 20 B/P (MAP) 139/69 (92) 138/59 (85) 150/61 (90) Pulse Ox 100 98 100 O2 Delivery Room Air Room Air Room Air Room Air 09/30/18 03:04 Temp 97.9 97.9 Pulse 84 Resp 20 B/P (MAP) 134/53 (80) Pulse Ox 97 O2 Delivery Room Air Intake and Output 09/29/18 09/29/18 09/30/18 14:59 22:59 06:59 Intake Total 360 ml 180 ml 1231 ml Output Total 1 ml 100 ml Balance 359 ml 180 ml 1131 ml DAVID AQUINO MD Sep 30, 2018 08:13
[2018-09-30] MEDS: CHLORHEXIDINE 0.12% 15 ML MOUTHWASH. SWSP SCH ×2 (08:37→22:10)
[2018-09-30] MEDS: amLODIPine BESYLATE 5 MG TABLET PO SCH (08:37)
[2018-09-30] MEDS: MULTIVIT INFUSN,ADULT 4,VIT K 10 ML, THIAMINE INJ 100 MG, FOLIC ACID INJ 1 MG in IV NOR... IV SCH (08:37)
--- NOTE | 2018-09-30 10:10 | PDOC ---
PROGRESS NOTES Assessment Syncope. Toxic encephalopathy. ETOH level 32.. Metabolic encephalopathy, hyponatremia, Na+ 129, Cl 94. HTN. GI ulcer, Hx. Smoking. Plan Okay for discharge as long as family can watch her at home. Detoxication treatment. Vit B 1 100 mg daily. Correct electrolytes imbalances. Treat medical diseases. Subjective No complaints, denies pain Objective Vital Signs Date Time Temp Pulse Resp B/P (MAP) Pulse Ox O2 Delivery O2 Flow Rate FiO2 09/30/18 08:37 84 150/71 09/30/18 07:00 98.2 17 98 Room Air 98.2 Intake and Output 09/30/18 07:00 Intake Total 1771 ml Output Total 101 ml Balance 1670 ml Intake Oral 540 ml IV Total 1231 ml Output Urine Total 100 ml Stool Total 1 ml # Voids 5 # Bowel Movements 1 PHYSICAL EXAM Alert. Oriented to place and person, does not know the date. She doesn't know why she is here PERRL. EOMI. CN: no focal findings. Muscle tone: normal. Muscle strength: 5/5 DTR: 2+ Plantar reflex: flexor Gait: normal. Sensory exam: no abnormal findings. No cerebellar signs elicited. Review of Relevant I have reviewed the following items mari (where applicable) has been applied. Labs Laboratory Tests Test 09/29/18 08:10 09/29/18 12:25 09/29/18 15:20 09/29/18 20:30 White Blood Count 4.6 x10^3/uL (4.0-11.0) Red Blood Count 3.79 x10^6/uL (3.50-5.40) Hemoglobin 12.1 g/dL (12.0-15.5) Hematocrit 35.9 % (36.0-47.0) Mean Corpuscular Volume 95 fL (79-100) Mean Corpuscular Hemoglobin 32 pg (25-35) Mean Corpuscular Hemoglobin Concent 34 g/dL (31-37) Red Cell Distribution Width 13.0 % (11.5-14.5) Platelet Count 279 x10^3/uL (140-400) Neutrophils (%) (Auto) 51 % (31-73) Lymphocytes (%) (Auto) 36 % (24-48) Monocytes (%) (Auto) 7 % (0-9) Eosinophils (%) (Auto) 4 % (0-3) Basophils (%) (Auto) 2 % (0-3) Neutrophils # (Auto) 2.4 x10^3uL (1.8-7.7) Lymphocytes # (Auto) 1.6 x10^3/uL (1.0-4.8) Monocytes # (Auto) 0.3 x10^3/uL (0.0-1.1) Eosinophils # (Auto) 0.2 x10^3/uL (0.0-0.7) Basophils # (Auto) 0.1 x10^3/uL (0.0-0.2) Prothrombin Time 13.3 SEC (11.7-14.0) Prothromb Time International Ratio 1.0 (0.8-1.1) Sodium Level 129 mmol/L (136-145) Potassium Level 4.6 mmol/L (3.5-5.1) Chloride Level 94 mmol/L (98-107) Carbon Dioxide Level 25 mmol/L (21-32) Anion Gap 10 (6-14) Blood Urea Nitrogen 11 mg/dL (7-20) Creatinine 1.2 mg/dL (0.6-1.0) Estimated GFR (Cockcroft-Gault) 53.4 BUN/Creatinine Ratio 9 (6-20) Glucose Level 94 mg/dL (70-99) Calcium Level 8.7 mg/dL (8.5-10.1) Magnesium Level 1.6 mg/dL (1.8-2.4) Total Bilirubin 0.2 mg/dL (0.2-1.0) Aspartate Amino Transf (AST/SGOT) 36 U/L (15-37) Alanine Aminotransferase (ALT/SGPT) 32 U/L (14-59) Alkaline Phosphatase 125 U/L (46-116) Troponin I Quantitative < 0.017 ng/mL (0.000-0.055) < 0.017 ng/mL (0.000-0.055) < 0.017 ng/mL (0.000-0.055) YZ-Hgz-V-Type Natriuretic Peptide 428 pg/mL (0-124) Total Protein 8.5 g/dL (6.4-8.2) Albumin 3.2 g/dL (3.4-5.0) Albumin/Globulin Ratio 0.6 (1.0-1.7) Ethyl Alcohol Level 32 mg/dL (0-10) Free Thyroxine 0.96 ng/dL (0.76-1.46) Urine Collection Type Unknown Urine Color Yellow Urine Clarity Clear Urine pH 6.0 Urine Specific [place] 1.010 Urine Protein Negative mg/dL (NEG-TRACE) Urine Glucose (UA) Negative mg/dL (NEG) Urine Ketones (Stick) Negative mg/dL (NEG) Urine Blood Negative (NEG) Urine Nitrite Negative (NEG) Urine Bilirubin Negative (NEG) Urine Urobilinogen Dipstick 0.2 mg/dL (0.2 mg/dL) Urine Leukocyte Esterase Small (NEG) Urine RBC 0 /HPF (0-2) Urine WBC 5-10 /HPF (0-4) Urine Squamous Epithelial Cells Few /LPF Urine Bacteria Many /HPF (0-FEW) Urine Opiates Screen Neg (NEG) Urine Methadone Screen Neg (NEG) Urine Barbiturates Neg (NEG) Urine Phencyclidine Screen Neg (NEG) Urine Amphetamine/Methamphetamine Neg (NEG) Urine Benzodiazepines Screen Neg (NEG) Urine Cocaine Screen Neg (NEG) Urine Cannabinoids Screen Neg (NEG) Urine Ethyl Alcohol Neg (NEG) Test 09/30/18 04:33 White Blood Count 4.3 x10^3/uL (4.0-11.0) Red Blood Count 3.14 x10^6/uL (3.50-5.40) Hemoglobin 10.0 g/dL (12.0-15.5) Hematocrit 29.3 % (36.0-47.0) Mean Corpuscular Volume 93 fL (79-100) Mean Corpuscular Hemoglobin 32 pg (25-35) Mean Corpuscular Hemoglobin Concent 34 g/dL (31-37) Red Cell Distribution Width 12.9 % (11.5-14.5) Platelet Count 230 x10^3/uL (140-400) Neutrophils (%) (Auto) 48 % (31-73) Lymphocytes (%) (Auto) 33 % (24-48) Monocytes (%) (Auto) 14 % (0-9) Eosinophils (%) (Auto) 4 % (0-3) Basophils (%) (Auto) 2 % (0-3) Neutrophils # (Auto) 2.1 x10^3uL (1.8-7.7) Lymphocytes # (Auto) 1.4 x10^3/uL (1.0-4.8) Monocytes # (Auto) 0.6 x10^3/uL (0.0-1.1) Eosinophils # (Auto) 0.2 x10^3/uL (0.0-0.7) Basophils # (Auto) 0.1 x10^3/uL (0.0-0.2) Sodium Level 133 mmol/L (136-145) Potassium Level 4.6 mmol/L (3.5-5.1) Chloride Level 100 mmol/L (98-107) Carbon Dioxide Level 25 mmol/L (21-32) Anion Gap 8 (6-14) Blood Urea Nitrogen 12 mg/dL (7-20) Creatinine 1.2 mg/dL (0.6-1.0) Estimated GFR (Cockcroft-Gault) 53.4 BUN/Creatinine Ratio 10 (6-20) Glucose Level 87 mg/dL (70-99) Calcium Level 8.3 mg/dL (8.5-10.1) Total Bilirubin 0.4 mg/dL (0.2-1.0) Aspartate Amino Transf (AST/SGOT) 31 U/L (15-37) Alanine Aminotransferase (ALT/SGPT) 28 U/L (14-59) Alkaline Phosphatase 127 U/L (46-116) Total Protein 7.2 g/dL (6.4-8.2) Albumin 2.8 g/dL (3.4-5.0) Albumin/Globulin Ratio 0.6 (1.0-1.7) Laboratory Tests Test 09/29/18 12:25 09/29/18 15:20 09/29/18 20:30 09/30/18 04:33 Troponin I Quantitative < 0.017 ng/mL (0.000-0.055) < 0.017 ng/mL (0.000-0.055) Free Thyroxine 0.96 ng/dL (0.76-1.46) Urine Collection Type Unknown Urine Color Yellow Urine Clarity Clear Urine pH 6.0 Urine Specific [place] 1.010 Urine Protein Negative mg/dL (NEG-TRACE) Urine Glucose (UA) Negative mg/dL (NEG) Urine Ketones (Stick) Negative mg/dL (NEG) Urine Blood Negative (NEG) Urine Nitrite Negative (NEG) Urine Bilirubin Negative (NEG) Urine Urobilinogen Dipstick 0.2 mg/dL (0.2 mg/dL) Urine Leukocyte Esterase Small (NEG) Urine RBC 0 /HPF (0-2) Urine WBC 5-10 /HPF (0-4) Urine Squamous Epithelial Cells Few /LPF Urine Bacteria Many /HPF (0-FEW) Urine Opiates Screen Neg (NEG) Urine Methadone Screen Neg (NEG) Urine Barbiturates Neg (NEG) Urine Phencyclidine Screen Neg (NEG) Urine Amphetamine/Methamphetamine Neg (NEG) Urine Benzodiazepines Screen Neg (NEG) Urine Cocaine Screen Neg (NEG) Urine Cannabinoids Screen Neg (NEG) Urine Ethyl Alcohol Neg (NEG) White Blood Count 4.3 x10^3/uL (4.0-11.0) Red Blood Count 3.14 x10^6/uL (3.50-5.40) Hemoglobin 10.0 g/dL (12.0-15.5) Hematocrit 29.3 % (36.0-47.0) Mean Corpuscular Volume 93 fL (79-100) Mean Corpuscular Hemoglobin 32 pg (25-35) Mean Corpuscular Hemoglobin Concent 34 g/dL (31-37) Red Cell Distribution Width 12.9 % (11.5-14.5) Platelet Count 230 x10^3/uL (140-400) Neutrophils (%) (Auto) 48 % (31-73) Lymphocytes (%) (Auto) 33 % (24-48) Monocytes (%) (Auto) 14 % (0-9) Eosinophils (%) (Auto) 4 % (0-3) Basophils (%) (Auto) 2 % (0-3) Neutrophils # (Auto) 2.1 x10^3uL (1.8-7.7) Lymphocytes # (Auto) 1.4 x10^3/uL (1.0-4.8) Monocytes # (Auto) 0.6 x10^3/uL (0.0-1.1) Eosinophils # (Auto) 0.2 x10^3/uL (0.0-0.7) Basophils # (Auto) 0.1 x10^3/uL (0.0-0.2) Sodium Level 133 mmol/L (136-145) Potassium Level 4.6 mmol/L (3.5-5.1) Chloride Level 100 mmol/L (98-107) Carbon Dioxide Level 25 mmol/L (21-32) Anion Gap 8 (6-14) Blood Urea Nitrogen 12 mg/dL (7-20) Creatinine 1.2 mg/dL (0.6-1.0) Estimated GFR (Cockcroft-Gault) 53.4 BUN/Creatinine Ratio 10 (6-20) Glucose Level 87 mg/dL (70-99) Calcium Level 8.3 mg/dL (8.5-10.1) Total Bilirubin 0.4 mg/dL (0.2-1.0) Aspartate Amino Transf (AST/SGOT) 31 U/L (15-37) Alanine Aminotransferase (ALT/SGPT) 28 U/L (14-59) Alkaline Phosphatase 127 U/L (46-116) Total Protein 7.2 g/dL (6.4-8.2) Albumin 2.8 g/dL (3.4-5.0) Albumin/Globulin Ratio 0.6 (1.0-1.7) Medications Current Medications Ondansetron HCl (Zofran) 4 mg PRN Q8HRS PRN IV NAUSEA/VOMITING; Start 09/29/18 at 09:30; Stop 09/30/18 at 09:29; Status DC Acetaminophen (Tylenol) 650 mg PRN Q4HRS PRN PO FEVER or PAIN; Start 09/29/18 at 09:30; Stop 09/30/18 at 09:29; Status DC Sodium Chloride 1,000 ml @ 100 mls/hr 1X ONCE IV Last administered on at 09:24; Start 09/29/18 at 09:30; Stop 09/29/18 at 19:29; Status DC Sodium Chloride (Normal Saline Flush) 10 ml QSHIFT PRN IV AFTER MEDS AND BLOOD DRAWS; Start 09/29/18 at 11:00 Multivitamins 10 ml/Thiamine HCl 100 mg/Folic Acid 1 mg/Sodium Chloride 1,011.2 ml @ 100 mls/ hr DAILY IV Last administered on 09/30/18at 08:37; Start 09/29/18 at 11:30; Stop 10/03/18 at 19:07 Lorazepam (Ativan) 1 mg Q6H PO Last administered on 09/30/18at 00:27; Start at 12:00; Stop 09/30/18 at 18:01 Lorazepam (Ativan) 4 mg PRN Q1HR PRN PO For CIWA 8-14; Start 09/29/18 at 11:00 Lorazepam (Ativan) 2 mg PRN Q1HR PRN IV For CIWA 8-14; Start 09/29/18 at 11:00 Haloperidol Lactate (Haldol Inj) 5 mg PRN Q4HRS PRN IVP Hallucinatns,Confusn, Delirium; Start 09/29/18 at 11:00 Diphenhydramine HCl (Benadryl) 25 mg PRN Q15MIN PRN IVP EPS symptoms 2'Haldol admin; Start 09/29/18 at 11:00 Clonidine HCl (Catapres) 0.1 mg PRN Q1HR PRN PO SBP > 180 or DBP > 100, MRX3; Start 09/29/18 at 11:00 Lorazepam (Ativan) 2 mg PRN Q15MIN PRN IV ; Start 09/29/18 at 11:00; Status UNV Chlorhexidine Gluconate (Peridex) 15 ml BID SWSP Last administered on 09/30/18at 08:37; Start 09/29/18 at 21:00 Pantoprazole Sodium (Protonix) 40 mg BIDAC PO Last administered on 09/30/18at 07: 56; Start 09/29/18 at 11:30 Amlodipine Besylate (Norvasc) 5 mg DAILY PO Last administered on 09/30/18at 08:37 ; Start 09/29/18 at 12:00 Magnesium Sulfate 3 gm/Dextrose 106 ml @ 35.333 mls/ hr 1X ONCE IV Last administered on 09/29/18at 11:38; Start 09/29/18 at 12:00; Stop 09/29/18 at 14:59; Status DC Multivitamins (Thera M Plus) 1 tab DAILY PO ; Start 10/04/18 at 09:00 Thiamine Mononitrate (Vitamin B-1) 100 mg DAILY PO ; Start 10/04/18 at 09:00 Active Scripts Active Pantoprazole Sodium 40 Mg Tablet.dr 40 Mg PO BIDAC 30 Days Peridex (Chlorhexidine Gluconate) 15 Ml Mouthwash 15 Ml PO BID Swish for 30 seconds and spit Vitals/I & O Vital Sign - Last 24 Hours 09/29/18 09/29/18 09/29/18 09/29/18 11:00 11:37 15:00 19:00 Temp 97.3 97.4 98.4 97.3 97.4 98.4 Pulse 76 76 96 93 Resp 18 17 20 B/P (MAP) 157/97 (117) 157/97 139/69 (92) 138/59 (85) Pulse Ox 98 100 98 O2 Delivery Room Air Room Air Room Air 09/29/18 09/29/18 09/30/18 09/30/18 20:00 23:00 03:04 07:00 Temp 98.2 97.9 98.2 98.2 97.9 98.2 Pulse 80 84 84 Resp 20 20 17 B/P (MAP) 150/61 (90) 134/53 (80) 150/71 (97) Pulse Ox 100 97 98 O2 Delivery Room Air Room Air Room Air Room Air 09/30/18 08:37 Pulse 84 B/P (MAP) 150/71 Intake and Output 09/29/18 09/29/18 09/30/18 15:00 23:00 07:00 Intake Total 360 ml 180 ml 1231 ml Output Total 1 ml 100 ml Balance 359 ml 180 ml [address] HEAD Mild bilateral periventricular white matter hypodensities likely chronic small vessel ischemic disease. No evidence of acute intracranial hemorrhage. No extra-axial fluid collections. No mass effect or midline shift. Ventricular size is appropriate. Basal cisterns are patent. No fractures identified.Rivers-white differentiation is preserved.Globes and orbits are within normal limits. Paranasal sinuses and mastoid air cells are clear. CT CERVICAL SPINE Vertebral body height and alignment are maintained. Cervical lordosis is preserved. The lateral masses of C1 are aligned upon C2. No fractures identified. The bony canal is patent throughout. Moderate intervertebral disc height loss identified throughout the cervical spine likely due to degeneration with the facets are well aligned. 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 The paraspinous soft tissues are unremarkable. Visualized intracranial contents are unremarkable. Mild emphysematous changes identified in the apical lungs. IMPRESSION: 1. No acute intracranial findings. 2. No acute fracture of the cervical spine. Correlate clinically. 3. Moderate degenerative changes cervical spine. Carotids: Findings: The common, internal and external carotid arteries were examined by grayscale, color and spectral Doppler ultrasound. Moderate atherosclerotic plaque identified in the bilateral carotid bulbs and the proximal internal carotid arteries. Flow in both vertebral arteries was antegrade and normal. There is mild elevated velocity identified in the bilateral external carotid arteries measuring up to 140 cm/s.. The following are the velocities and ratios in the carotid arteries on both sides: RIGHT ICA PV: 117cm/sec RIGHT CCA PV: 79cm/sec RIGHT ICA ED: 32cm/sec RIGHT IC/CCPV: 1.8 RIGHT VERTEBRAL: antegrade flow RIGHT % STENOSIS: Less than 50 percent LEFT ICA PV: 114cm/sec LEFT CCA PV: 104cm/sec LEFT ICA ED: 24cm/sec LEFT IC/CCPV: 1.5 LEFT VERTEBRAL: antegrade flow LEFT % STENOSIS: Less than 50 percent <50% ICA Stenosis: PSV < 125cm/s (EDV < 40cm/s; SVR < 2.0) 50-69% ICA Stenosis: PSV < 125-229cm/s (EDV 40-99cm/s; SVR 2.0-3.9) >70% ICA Stenosis: PSV > 230cm/s (EDV >100cm/s; SVR >4.0) Impression: 1. No evidence of hemodynamically significant stenosis. 2. Moderate atherosclerotic plaque identified in the bilateral carotid bulbs and the proximal internal carotid arteries. BERTIN GALARZA MD Sep 30, 2018 10:10
--- NOTE | 2018-09-30 10:31 | PDOC ---
Subjective: Subjective: Walking around room - just used commode, wants a pull-up. Denies n/v, abd pain, diarrhea, and bleeding. Says ate all of breakfast. Objective: Vital Signs: Vital Signs Date Time Temp Pulse Resp B/P (MAP) Pulse Ox O2 Delivery O2 Flow Rate FiO2 09/30/18 08:37 84 150/71 09/30/18 07:00 98.2 17 98 Room Air 98.2 Labs: Laboratory Tests Test 09/29/18 12:25 09/29/18 15:20 09/29/18 20:30 09/30/18 04:33 Troponin I Quantitative < 0.017 ng/mL < 0.017 ng/mL Free Thyroxine 0.96 ng/dL Urine Collection Type Unknown Urine Color Yellow Urine Clarity Clear Urine pH 6.0 Urine Specific [place] 1.010 Urine Protein Negative mg/dL Urine Glucose (UA) Negative mg/dL Urine Ketones (Stick) Negative mg/dL Urine Blood Negative Urine Nitrite Negative Urine Bilirubin Negative Urine Urobilinogen Dipstick 0.2 mg/dL Urine Leukocyte Esterase Small Urine RBC 0 /HPF Urine WBC 5-10 /HPF Urine Squamous Epithelial Cells Few /LPF Urine Bacteria Many /HPF Urine Opiates Screen Neg Urine Methadone Screen Neg Urine Barbiturates Neg Urine Phencyclidine Screen Neg Urine Amphetamine/Methamphetamine Neg Urine Benzodiazepines Screen Neg Urine Cocaine Screen Neg Urine Cannabinoids Screen Neg Urine Ethyl Alcohol Neg White Blood Count 4.3 x10^3/uL Red Blood Count 3.14 x10^6/uL Hemoglobin 10.0 g/dL Hematocrit 29.3 % Mean Corpuscular Volume 93 fL Mean Corpuscular Hemoglobin 32 pg Mean Corpuscular Hemoglobin Concent 34 g/dL Red Cell Distribution Width 12.9 % Platelet Count 230 x10^3/uL Neutrophils (%) (Auto) 48 % Lymphocytes (%) (Auto) 33 % Monocytes (%) (Auto) 14 % Eosinophils (%) (Auto) 4 % Basophils (%) (Auto) 2 % Neutrophils # (Auto) 2.1 x10^3uL Lymphocytes # (Auto) 1.4 x10^3/uL Monocytes # (Auto) 0.6 x10^3/uL Eosinophils # (Auto) 0.2 x10^3/uL Basophils # (Auto) 0.1 x10^3/uL Sodium Level 133 mmol/L Potassium Level 4.6 mmol/L Chloride Level 100 mmol/L Carbon Dioxide Level 25 mmol/L Anion Gap 8 Blood Urea Nitrogen 12 mg/dL Creatinine 1.2 mg/dL Estimated GFR (Cockcroft-Gault) 53.4 BUN/Creatinine Ratio 10 Glucose Level 87 mg/dL Calcium Level 8.3 mg/dL Total Bilirubin 0.4 mg/dL Aspartate Amino Transf (AST/SGOT) 31 U/L Alanine Aminotransferase (ALT/SGPT) 28 U/L Alkaline Phosphatase 127 U/L Total Protein 7.2 g/dL Albumin 2.8 g/dL Albumin/Globulin Ratio 0.6 Imaging: Carotid Doppler Study Impression: 1. No evidence of hemodynamically significant stenosis. 2. Moderate atherosclerotic plaque identified in the bilateral carotid bulbs and the proximal internal carotid arteries. Head/Cspine CT IMPRESSION: 1. No acute intracranial findings. 2. No acute fracture of the cervical spine. Correlate clinically. 3. Moderate degenerative changes cervical spine. Echocardiogram pending PE: GEN: NAD LUNGS: room air HEART: RRR ABD: S/ND/NT - soft brown stool in commode NEURO/PSYCH: appropriate A/P: Syncope, encephalopathy Chronic anemia, elevated Alk Phos, +alcohol H/o large w/ intestinal metaplasia 02/2017 Diverticulosis on past imaging -- Continue PPI. Check anemia parameters. Seems asymptomatic GI-chaidez - can pursue outpt EGD. Reviewed w/ office - did not follow-up for interval EGD in 2016, no-showed to appointment. MORELIA MARTINEZ Sep 30, 2018 10:31
[2018-09-30 11:00] VITALS: BP 153/70
--- NOTE | 2018-09-30 11:40 | CARD ---
MR#: [id number] Date of Study: 09/30/2018 Ordering Physician: AGAPITO TIRADO, Referring Physician: AGAPITO TIRADO Tech: Antonella Daevnport JOY APPROVED REPORT EXAM: Two-dimensional and M-mode echocardiogram with Doppler and color Doppler. Other Information Quality : GoodHR: 91bpm Rhythm : NSR INDICATION Syncope 2D DIMENSIONS RVDd2.6 (2.9-3.5cm)Left Atrium(2D)3.0 (1.6-4.0cm) IVSd1.0 (0.7-1.1cm)Aortic Root(2D)2.8 (2.0-3.7cm) LVDd4.2 (3.9-5.9cm)LVOT Diameter1.8 (1.8-2.4cm) PWd1.0 (0.7-1.1cm)LVDs3.0 (2.5-4.0cm) FS (%) 29.3 %SV45.6 ml LVEF(%)56.5 (>50%) Aortic Valve AoV Peak Darrell.132.8cm/sAoV VTI27.1cm AO Peak GR.7.1mmHgLVOT Peak Darrell.50.9cm/s AO Mean GR.4mmHgAVA (VMAX)0.92cm2 YO (VTI)1.00cm2 Mitral Valve MV E Ardkfnbf004.6cm/sMV E Peak Gr.11mmHg MV DECEL [id number] A Rvpshzpu99.3cm/s MV E Mean Gr.5mmHgE/A Ratio1.4 MV A [id number] Pulmonary Valve PV Peak Ijagjlbo05.8cm/s Tricuspid Valve TR P. [id number] [id number] TR Peak Gr.[id number] LEFT VENTRICLE The left ventricle is normal size. There is normal left ventricular wall thickness. The left ventricu lar systolic function is normal and the ejection fraction is within normal range. The Ejection Fracti on is 55%. There is normal LV segmental wall motion. Transmitral Doppler flow pattern is Grade II-pse udonormal filling dynamics. RIGHT VENTRICLE The right ventricle is normal size. There is normal right ventricular wall thickness. The right ventr icular systolic function is normal. ATRIA The left atrium size is normal. The right atrium size is normal. The interatrial septum is intact wit h no evidence for an atrial septal defect or patent foramen ovale as noted on 2-D or Doppler imaging. AORTIC VALVE The aortic valve is calcified but opens well. The aortic valve is trileaflet. Doppler and Color Flow revealed no significant aortic regurgitation. There is no significant aortic valvular stenosis. MITRAL VALVE Mitral annular calcification is mild. There is no evidence of mitral valve prolapse. There is no mitr al valve stenosis. Doppler and Color-flow revealed mild mitral regurgitation. TRICUSPID VALVE The tricuspid valve is normal in structure and function. Doppler and Color Flow revealed mild tricusp id regurgitation. There is moderate pulmonary hypertension. The PA pressure was estimated at 46 mmHg. There is no tricuspid valve prolapse or vegetation. There is no tricuspid valve stenosis. PULMONIC VALVE Doppler and Color Flow revealed mild pulmonic valvular regurgitation. There is no pulmonic valvular s tenosis. GREAT VESSELS The aortic root is normal in size. The ascending aorta is normal in size. The IVC is normal in size a nd collapses >50% with inspiration. PERICARDIAL EFFUSION There is no evidence of significant pericardial effusion. Critical Notification Critical Value: No <Conclusion> The left ventricular systolic function is normal and the ejection fraction is within normal range. Th e Ejection Fraction is 55%. There is normal LV segmental wall motion. Doppler and Color Flow revealed mild tricuspid regurgitation. There is moderate pulmonary hypertensio n. The PA pressure was estimated at 46 mmHg. Signed by : Mario Saunders, Electronically Approved : 09/30/2018 11:40:00
--- NOTE | 2018-09-30 12:20 | PDOC2 ---
ABDIEL RAY BILLET INSPECTOR 09/30/18 1220: CARDIAC CONSULT DATE OF CONSULT Date of Consult DATE: 09/30/18 TIME: 12:10 REASON FOR CONSULT Reason for Consult: syncope REFERRING PHYSICIAN Referring Physician: Dr. Knowles SOURCE Source: Chart review, Patient HISTORY OF PRESENT ILLNESS HISTORY OF PRESENT ILLNESS This is a 72 yo female who presented secondary to syncopal episode. Patient was found down on the bathroom floor by family. Uncertain as to how long she was there. Patient reports she was getting up off the toilet and that is the last thing she remembers. Was found down on her back on the floor by family. Patient reports intermittent dizziness. Mainly occurs when she stands up out of bed. Denies any chest pain, SOA, diaphoresis, palpitations, orthopnea, PND, or nausea /vomiting. Of note, ETOH level elevated upon arrival. PAST MEDICAL HISTORY Cardiovascular: HTN Pulmonary: No pertinent hx CENTRAL NERVOUS SYSTEM: Other (no pertinent hx) GI: GERD, Peptic Ulcer disease Heme/Onc: No pertinent hx Hepatobiliary: No pertinent hx Psych: No pertinent hx Musculoskeletal: Osteoarthritis Infectious disease: No pertinent hx ENT: No pertinent hx Renal/: No pertinent hx Endocrine: Diabetes Dermatology: No pertinent hx PAST SURGICAL HISTORY Past Surgical History: Appendectomy, Cataract Removal, Hernia Repair FAMILY HISTORY Family History: Hypertension SOCIAL HISTORY Smoke: <1 pack per day ALCOHOL: other (1/2 pint Vodka lasts 2 days) Drugs: None Lives: with Family CURRENT MEDICATIONS CURRENT MEDICATIONS Current Medications Medications (Trade) Dose Ordered Sig/Dora Route PRN Reason Start Time Stop Time Status Last Admin Dose Admin Chlorhexidine Gluconate (Peridex) 15 ml BID [facility] 09/29/18 21:00 09/30/18 08:37 ALLERGIES ALLERGIES: Coded Allergies: Penicillins (Verified Allergy, Intermediate, rash, 03/26/14) codeine (Verified Allergy, Intermediate, Reaction unknown, 03/31/17) Patient says she has taken Lortab previously without problems. latex (Verified Allergy, Intermediate, 03/29/17) ROS Review of System 14 point ROS conducted with pertinent positives noted above in HPI. PHYSICAL EXAM General: Alert, Oriented X3, Cooperative, No acute distress HEENT: Atraumatic, Mucous membr. moist/pink Lungs: Clear to auscultation, Normal air movement Heart: Regular rate, Normal S1, Normal S2 Abdomen: Soft, No tenderness Extremities: No edema, Normal pulses Skin: No breakdown, No significant lesion Neuro: Normal speech, Sensation intact Psych/Mental Status: Mood NL MUSCULOSKELETAL: Osteoarthritic changes both hands VITALS VITALS Vital Signs Date Time Temp Pulse Resp B/P (MAP) Pulse Ox O2 Delivery O2 Flow Rate FiO2 09/30/18 11:00 97.7 68 17 153/70 (97) 100 Room Air 97.7 LABS Lab: Laboratory Tests Test 09/29/18 12:25 09/29/18 15:20 09/29/18 20:30 09/30/18 04:33 Troponin I Quantitative < 0.017 ng/mL (0.000-0.055) < 0.017 ng/mL (0.000-0.055) Free Thyroxine 0.96 ng/dL (0.76-1.46) Urine Collection Type Unknown Urine Color Yellow Urine Clarity Clear Urine pH 6.0 Urine Specific [place] 1.010 Urine Protein Negative mg/dL (NEG-TRACE) Urine Glucose (UA) Negative mg/dL (NEG) Urine Ketones (Stick) Negative mg/dL (NEG) Urine Blood Negative (NEG) Urine Nitrite Negative (NEG) Urine Bilirubin Negative (NEG) Urine Urobilinogen Dipstick 0.2 mg/dL (0.2 mg/dL) Urine Leukocyte Esterase Small (NEG) Urine RBC 0 /HPF (0-2) Urine WBC 5-10 /HPF (0-4) Urine Squamous Epithelial Cells Few /LPF Urine Bacteria Many /HPF (0-FEW) Urine Opiates Screen Neg (NEG) Urine Methadone Screen Neg (NEG) Urine Barbiturates Neg (NEG) Urine Phencyclidine Screen Neg (NEG) Urine Amphetamine/Methamphetamine Neg (NEG) Urine Benzodiazepines Screen Neg (NEG) Urine Cocaine Screen Neg (NEG) Urine Cannabinoids Screen Neg (NEG) Urine Ethyl Alcohol Neg (NEG) White Blood Count 4.3 x10^3/uL (4.0-11.0) Red Blood Count 3.14 x10^6/uL (3.50-5.40) Hemoglobin 10.0 g/dL (12.0-15.5) Hematocrit 29.3 % (36.0-47.0) Mean Corpuscular Volume 93 fL (79-100) Mean Corpuscular Hemoglobin 32 pg (25-35) Mean Corpuscular Hemoglobin Concent 34 g/dL (31-37) Red Cell Distribution Width 12.9 % (11.5-14.5) Platelet Count 230 x10^3/uL (140-400) Neutrophils (%) (Auto) 48 % (31-73) Lymphocytes (%) (Auto) 33 % (24-48) Monocytes (%) (Auto) 14 % (0-9) Eosinophils (%) (Auto) 4 % (0-3) Basophils (%) (Auto) 2 % (0-3) Neutrophils # (Auto) 2.1 x10^3uL (1.8-7.7) Lymphocytes # (Auto) 1.4 x10^3/uL (1.0-4.8) Monocytes # (Auto) 0.6 x10^3/uL (0.0-1.1) Eosinophils # (Auto) 0.2 x10^3/uL (0.0-0.7) Basophils # (Auto) 0.1 x10^3/uL (0.0-0.2) Reticulocyte Count (auto) 0.7 % (0.5-2.5) Sodium Level 133 mmol/L (136-145) Potassium Level 4.6 mmol/L (3.5-5.1) Chloride Level 100 mmol/L (98-107) Carbon Dioxide Level 25 mmol/L (21-32) Anion Gap 8 (6-14) Blood Urea Nitrogen 12 mg/dL (7-20) Creatinine 1.2 mg/dL (0.6-1.0) Estimated GFR (Cockcroft-Gault) 53.4 BUN/Creatinine Ratio 10 (6-20) Glucose Level 87 mg/dL (70-99) Calcium Level 8.3 mg/dL (8.5-10.1) Iron Level 111 ug/dL (50-170) Total Iron Binding Capacity 182 ug/dL (250-450) Iron Saturation 61 % (15-34) Total Bilirubin 0.4 mg/dL (0.2-1.0) Aspartate Amino Transf (AST/SGOT) 31 U/L (15-37) Alanine Aminotransferase (ALT/SGPT) 28 U/L (14-59) Alkaline Phosphatase 127 U/L (46-116) Total Protein 7.2 g/dL (6.4-8.2) Albumin 2.8 g/dL (3.4-5.0) Albumin/Globulin Ratio 0.6 (1.0-1.7) ECHOCARDIOGRAM ECHOCARDIOGRAM <Conclusion> The left ventricular systolic function is normal and the ejection fraction is within normal range. The Ejection Fraction is 55%. There is normal LV segmental wall motion. Doppler and Color Flow revealed mild tricuspid regurgitation. There is moderate pulmonary hypertension. The PA pressure was estimated at 46 mmHg. DATE: 09/30/18 1140 ASSESSMENT/PLAN ASSESSMENT/PLAN 1. Syncope. Echo showed normal LV systolic function with an EF of 55%. No WMA or significant valvular insufficiency. Telemetry without any acute events 2. Hypertension; mildly elevated 3. Metabolic/toxic encephalopathy; ETOH 32 4. CKD 5. Hypomagnesemia; replaced 6. Hyponatremia; improved 7. ETOH abuse; banana bag 8. Tobaccoism; discussed/encouraged cessation Recommendations Check orthostatic vital as patient reports dizziness upon standing. ETOH cessation If recurrent, consider outpatient event monitor. VERNELL OLIVAS MD 09/30/18 1752: CARDIAC CONSULT ASSESSMENT/PLAN ASSESSMENT/PLAN Patient seen and examined. Agree with above nurse practitioner note. Supportive care and conservative mgmt. Pls call with questions. ABDIEL RAY APRN Sep 30, 2018 12:20 VERNELL OLIVAS MD Sep 30, 2018 17:52
[2018-09-30 15:00] VITALS: BP 159/71
[2018-09-30 19:00] VITALS: BP 166/89
[2018-09-30 23:00] VITALS: BP 131/71
[2018-10-01 03:00] VITALS: BP 150/85
[2018-10-01 07:00] VITALS: BP 167/80
[2018-10-01] MEDS: PANTOPRAZOLE 40 MG TABLET.DR. PO SCH ×2 (07:29→16:08)
[2018-10-01] MEDS: CHLORHEXIDINE 0.12% 15 ML MOUTHWASH. SWSP SCH ×2 (08:39→20:30)
[2018-10-01] MEDS: amLODIPine BESYLATE 5 MG TABLET PO SCH (08:39)
[2018-10-01] MEDS: MULTIVIT INFUSN,ADULT 4,VIT K 10 ML, THIAMINE INJ 100 MG, FOLIC ACID INJ 1 MG in IV NOR... IV SCH (08:39)
--- NOTE | 2018-10-01 08:49 | PDOC ---
PROGRESS NOTES Chief Complaint Chief Complaint Syncope. Toxic encephalopathy. Metabolic encephalopathy. ETOH level 32. Hyponatremia, Na+ 129, Cl 94. HTN. Smoking. Severe chronic alcohol abuse affecting health, high risk of complications hx GASTRIC ULCER 2016 WITH extensive intestinal metaplasia and ulceration. 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 Hypomagnesemia History of Present Illness History of Present Illness 72 years old female patient with past medical history of hypertension and large gastric ulcer. She is currently admitted to the hospital after she was brought by EMS for syncope. Reportedly, patient was found by her family members lying down on the bathroom floor on her back. GI consulted for history of intestinal metaplasia in gastric mucosa. [She had upper endoscopic exam with biopsies on that was notable for large penetrating lesser curve ulcer 4 x 8 cm with no active bleeding. Gastric biopsies obtained at that time showed moderate to marked active chronic inflammation with extensive intestinal metaplasia. There were also segments of acute inflammatory exudate consistent with ulceration, neg for h. pylori. No evidence of malignancy.] Seen by cardiology and neurology for syncope. Echo: The left ventricular systolic function is normal and the ejection fraction is within normal range. The Ejection Fraction is 55%. There is normal LV segmental wall motion. Doppler and Color Flow revealed mild tricuspid regurgitation. There is moderate pulmonary hypertension. The PA pressure was estimated at 46 mmHg. Carotid dopplers with no significant stenosis Still feeling a little unsteady. She is not dizzy. She notes she drinks a pint of alcohol every 2 days. Seen by PT, recommended SNF. Urine returned with + LE and bacteria A/P: Rocephin for UTI PT/OT to see Neurology ok with 19/02 care She needs SNF on d/c Vitals Vitals Vital Signs Date Time Temp Pulse Resp B/P (MAP) Pulse Ox O2 Delivery O2 Flow Rate FiO2 10/01/18 08:39 84 167/80 10/01/18 07:00 98.4 18 98 Room Air 98.4 Physical Exam General: Alert, Cooperative, No acute distress Heart: Regular rate, Normal S1, Normal S2 Lungs: Clear Abdomen: Soft, No tenderness Extremities: No edema, Normal pulses Skin: No breakdown, No significant lesion Labs LABS Laboratory Tests Test 10/01/18 06:30 Magnesium Level 1.9 mg/dL (1.8-2.4) Comment Review of Relevant I have reviewed the following items mari (where applicable) has been applied. Labs Laboratory Tests Test 09/29/18 12:25 09/29/18 15:20 09/29/18 20:30 09/30/18 04:33 Troponin I Quantitative < 0.017 ng/mL (0.000-0.055) < 0.017 ng/mL (0.000-0.055) Free Thyroxine 0.96 ng/dL (0.76-1.46) Urine Collection Type Unknown Urine Color Yellow Urine Clarity Clear Urine pH 6.0 Urine Specific [place] 1.010 Urine Protein Negative mg/dL (NEG-TRACE) Urine Glucose (UA) Negative mg/dL (NEG) Urine Ketones (Stick) Negative mg/dL (NEG) Urine Blood Negative (NEG) Urine Nitrite Negative (NEG) Urine Bilirubin Negative (NEG) Urine Urobilinogen Dipstick 0.2 mg/dL (0.2 mg/dL) Urine Leukocyte Esterase Small (NEG) Urine RBC 0 /HPF (0-2) Urine WBC 5-10 /HPF (0-4) Urine Squamous Epithelial Cells Few /LPF Urine Bacteria Many /HPF (0-FEW) Urine Opiates Screen Neg (NEG) Urine Methadone Screen Neg (NEG) Urine Barbiturates Neg (NEG) Urine Phencyclidine Screen Neg (NEG) Urine Amphetamine/Methamphetamine Neg (NEG) Urine Benzodiazepines Screen Neg (NEG) Urine Cocaine Screen Neg (NEG) Urine Cannabinoids Screen Neg (NEG) Urine Ethyl Alcohol Neg (NEG) White Blood Count 4.3 x10^3/uL (4.0-11.0) Red Blood Count 3.14 x10^6/uL (3.50-5.40) Hemoglobin 10.0 g/dL (12.0-15.5) Hematocrit 29.3 % (36.0-47.0) Mean Corpuscular Volume 93 fL (79-100) Mean Corpuscular Hemoglobin 32 pg (25-35) Mean Corpuscular Hemoglobin Concent 34 g/dL (31-37) Red Cell Distribution Width 12.9 % (11.5-14.5) Platelet Count 230 x10^3/uL (140-400) Neutrophils (%) (Auto) 48 % (31-73) Lymphocytes (%) (Auto) 33 % (24-48) Monocytes (%) (Auto) 14 % (0-9) Eosinophils (%) (Auto) 4 % (0-3) Basophils (%) (Auto) 2 % (0-3) Neutrophils # (Auto) 2.1 x10^3uL (1.8-7.7) Lymphocytes # (Auto) 1.4 x10^3/uL (1.0-4.8) Monocytes # (Auto) 0.6 x10^3/uL (0.0-1.1) Eosinophils # (Auto) 0.2 x10^3/uL (0.0-0.7) Basophils # (Auto) 0.1 x10^3/uL (0.0-0.2) Reticulocyte Count (auto) 0.7 % (0.5-2.5) Sodium Level 133 mmol/L (136-145) Potassium Level 4.6 mmol/L (3.5-5.1) Chloride Level 100 mmol/L (98-107) Carbon Dioxide Level 25 mmol/L (21-32) Anion Gap 8 (6-14) Blood Urea Nitrogen 12 mg/dL (7-20) Creatinine 1.2 mg/dL (0.6-1.0) Estimated GFR (Cockcroft-Gault) 53.4 BUN/Creatinine Ratio 10 (6-20) Glucose Level 87 mg/dL (70-99) Calcium Level 8.3 mg/dL (8.5-10.1) Iron Level 111 ug/dL (50-170) Total Iron Binding Capacity 182 ug/dL (250-450) Iron Saturation 61 % (15-34) Total Bilirubin 0.4 mg/dL (0.2-1.0) Aspartate Amino Transf (AST/SGOT) 31 U/L (15-37) Alanine Aminotransferase (ALT/SGPT) 28 U/L (14-59) Alkaline Phosphatase 127 U/L (46-116) Total Protein 7.2 g/dL (6.4-8.2) Albumin 2.8 g/dL (3.4-5.0) Albumin/Globulin Ratio 0.6 (1.0-1.7) Test 10/01/18 06:30 Magnesium Level 1.9 mg/dL (1.8-2.4) Laboratory Tests Test 10/01/18 06:30 Magnesium Level 1.9 mg/dL (1.8-2.4) Medications Current Medications Ondansetron HCl (Zofran) 4 mg PRN Q8HRS PRN IV NAUSEA/VOMITING; Start 09/29/18 at 09:30; Stop 09/30/18 at 09:29; Status DC Acetaminophen (Tylenol) 650 mg PRN Q4HRS PRN PO FEVER or PAIN; Start 09/29/18 at 09:30; Stop 09/30/18 at 09:29; Status DC Sodium Chloride 1,000 ml @ 100 mls/hr 1X ONCE IV Last administered on at 09:24; Start 09/29/18 at 09:30; Stop 09/29/18 at 19:29; Status DC Sodium Chloride (Normal Saline Flush) 10 ml QSHIFT PRN IV AFTER MEDS AND BLOOD DRAWS; Start 09/29/18 at 11:00 Multivitamins 10 ml/Thiamine HCl 100 mg/Folic Acid 1 mg/Sodium Chloride 1,011.2 ml @ 100 mls/ hr DAILY IV Last administered on 10/01/18at 08:39; Start 09/29/18 at 11:30; Stop 10/03/18 at 19:07 Lorazepam (Ativan) 1 mg Q6H PO Last administered on 09/30/18at 17:41; Start at 12:00; Stop 09/30/18 at 18:01; Status DC Lorazepam (Ativan) 4 mg PRN Q1HR PRN PO For CIWA 8-14; Start 09/29/18 at 11:00 Lorazepam (Ativan) 2 mg PRN Q1HR PRN IV For CIWA 8-14 Last administered on at 15:30; Start 09/29/18 at 11:00 Haloperidol Lactate (Haldol Inj) 5 mg PRN Q4HRS PRN IVP Hallucinatns,Confusn, Delirium Last administered on 09/30/18at 16:20; Start 09/29/18 at 11:00 Diphenhydramine HCl (Benadryl) 25 mg PRN Q15MIN PRN IVP EPS symptoms 2'Haldol admin; Start 09/29/18 at 11:00 Clonidine HCl (Catapres) 0.1 mg PRN Q1HR PRN PO SBP > 180 or DBP > 100, MRX3; Start 09/29/18 at 11:00 Lorazepam (Ativan) 2 mg PRN Q15MIN PRN IV ; Start 09/29/18 at 11:00; Status UNV Chlorhexidine Gluconate (Peridex) 15 ml BID SWSP Last administered on 10/01/18at 08:39; Start 09/29/18 at 21:00 Pantoprazole Sodium (Protonix) 40 mg BIDAC PO Last administered on 10/01/18at 07: 29; Start 09/29/18 at 11:30 Amlodipine Besylate (Norvasc) 5 mg DAILY PO Last administered on 10/01/18at 08:39 ; Start 09/29/18 at 12:00 Magnesium Sulfate 3 gm/Dextrose 106 ml @ 35.333 mls/ hr 1X ONCE IV Last administered on 09/29/18at 11:38; Start 09/29/18 at 12:00; Stop 09/29/18 at 14:59; Status DC Multivitamins (Thera M Plus) 1 tab DAILY PO ; Start 10/04/18 at 09:00 Thiamine Mononitrate (Vitamin B-1) 100 mg DAILY PO ; Start 10/04/18 at 09:00 Active Scripts Active Pantoprazole Sodium 40 Mg Tablet.dr 40 Mg PO BIDAC 30 Days Peridex (Chlorhexidine Gluconate) 15 Ml Mouthwash 15 Ml PO BID Swish for 30 seconds and spit Vitals/I & O Vital Sign - Last 24 Hours 09/30/18 09/30/18 09/30/18 09/30/18 11:00 15:00 19:00 20:00 Temp 97.7 98.4 97.6 97.7 98.4 97.6 Pulse 68 68 85 Resp 17 17 18 B/P (MAP) 153/70 (97) 159/71 (100) 166/89 (114) Pulse Ox 100 99 99 O2 Delivery Room Air Room Air Room Air Room Air 09/30/18 10/01/18 10/01/18 10/01/18 23:00 03:00 07:00 08:39 Temp 97.5 98.0 98.4 97.5 98.0 98.4 Pulse 78 81 84 84 Resp 18 18 18 B/P (MAP) 131/71 (91) 150/85 (106) 167/80 (109) 167/80 Pulse Ox 99 99 98 O2 Delivery Room Air Room Air Room Air Intake and Output 09/30/18 09/30/18 10/01/18 15:00 23:00 07:00 Intake Total 480 ml 480 ml 0 ml Output Total 350 ml 600 ml Balance 130 ml -120 ml 0 ml DAVID AQUINO MD Oct 01, 2018 08:49
[2018-10-01 09:02] LABS: CREATININE 1.1 mg/dL (0.6-1.0); GFR 59.1; POTASSIUM 4.5 mmol/L (3.5-5.1)
--- NOTE | 2018-10-01 10:16 | PDOC ---
PROGRESS NOTES Assessment Syncope. Toxic encephalopathy. ETOH level 32.. Metabolic encephalopathy, hyponatremia, Na+ 129, Cl 94. HTN. GI ulcer, Hx. Smoking. Plan Okay for discharge as long as family can watch her at home, otherwise mcfp. Detoxication treatment. Vit B 1 100 mg daily. Correct electrolytes imbalances. Treat medical diseases. Subjective No complaints, wants to go home Objective Vital Signs Date Time Temp Pulse Resp B/P (MAP) Pulse Ox O2 Delivery O2 Flow Rate FiO2 10/01/18 08:39 84 167/80 10/01/18 07:00 98.4 18 98 Room Air 98.4 Intake and Output 10/01/18 07:00 Intake Total 960 ml Output Total 950 ml Balance 10 ml Intake Oral 960 ml Output Urine Total 950 ml # Voids 2 PHYSICAL EXAM Alert. Oriented to place and person, does not know the date. PERRL. EOMI. CN: no focal findings. Muscle tone: normal. Muscle strength: 5/5 DTR: 2+ Plantar reflex: flexor Gait: not tested Sensory exam: no abnormal findings. No cerebellar signs elicited. Review of Relevant I have reviewed the following items mari (where applicable) has been applied. Labs Laboratory Tests Test 09/29/18 12:25 09/29/18 15:20 09/29/18 20:30 09/30/18 04:33 Troponin I Quantitative < 0.017 ng/mL (0.000-0.055) < 0.017 ng/mL (0.000-0.055) Free Thyroxine 0.96 ng/dL (0.76-1.46) Urine Collection Type Unknown Urine Color Yellow Urine Clarity Clear Urine pH 6.0 Urine Specific [place] 1.010 Urine Protein Negative mg/dL (NEG-TRACE) Urine Glucose (UA) Negative mg/dL (NEG) Urine Ketones (Stick) Negative mg/dL (NEG) Urine Blood Negative (NEG) Urine Nitrite Negative (NEG) Urine Bilirubin Negative (NEG) Urine Urobilinogen Dipstick 0.2 mg/dL (0.2 mg/dL) Urine Leukocyte Esterase Small (NEG) Urine RBC 0 /HPF (0-2) Urine WBC 5-10 /HPF (0-4) Urine Squamous Epithelial Cells Few /LPF Urine Bacteria Many /HPF (0-FEW) Urine Opiates Screen Neg (NEG) Urine Methadone Screen Neg (NEG) Urine Barbiturates Neg (NEG) Urine Phencyclidine Screen Neg (NEG) Urine Amphetamine/Methamphetamine Neg (NEG) Urine Benzodiazepines Screen Neg (NEG) Urine Cocaine Screen Neg (NEG) Urine Cannabinoids Screen Neg (NEG) Urine Ethyl Alcohol Neg (NEG) White Blood Count 4.3 x10^3/uL (4.0-11.0) Red Blood Count 3.14 x10^6/uL (3.50-5.40) Hemoglobin 10.0 g/dL (12.0-15.5) Hematocrit 29.3 % (36.0-47.0) Mean Corpuscular Volume 93 fL (79-100) Mean Corpuscular Hemoglobin 32 pg (25-35) Mean Corpuscular Hemoglobin Concent 34 g/dL (31-37) Red Cell Distribution Width 12.9 % (11.5-14.5) Platelet Count 230 x10^3/uL (140-400) Neutrophils (%) (Auto) 48 % (31-73) Lymphocytes (%) (Auto) 33 % (24-48) Monocytes (%) (Auto) 14 % (0-9) Eosinophils (%) (Auto) 4 % (0-3) Basophils (%) (Auto) 2 % (0-3) Neutrophils # (Auto) 2.1 x10^3uL (1.8-7.7) Lymphocytes # (Auto) 1.4 x10^3/uL (1.0-4.8) Monocytes # (Auto) 0.6 x10^3/uL (0.0-1.1) Eosinophils # (Auto) 0.2 x10^3/uL (0.0-0.7) Basophils # (Auto) 0.1 x10^3/uL (0.0-0.2) Reticulocyte Count (auto) 0.7 % (0.5-2.5) Sodium Level 133 mmol/L (136-145) Potassium Level 4.6 mmol/L (3.5-5.1) Chloride Level 100 mmol/L (98-107) Carbon Dioxide Level 25 mmol/L (21-32) Anion Gap 8 (6-14) Blood Urea Nitrogen 12 mg/dL (7-20) Creatinine 1.2 mg/dL (0.6-1.0) Estimated GFR (Cockcroft-Gault) 53.4 BUN/Creatinine Ratio 10 (6-20) Glucose Level 87 mg/dL (70-99) Calcium Level 8.3 mg/dL (8.5-10.1) Iron Level 111 ug/dL (50-170) Total Iron Binding Capacity 182 ug/dL (250-450) Iron Saturation 61 % (15-34) Total Bilirubin 0.4 mg/dL (0.2-1.0) Aspartate Amino Transf (AST/SGOT) 31 U/L (15-37) Alanine Aminotransferase (ALT/SGPT) 28 U/L (14-59) Alkaline Phosphatase 127 U/L (46-116) Total Protein 7.2 g/dL (6.4-8.2) Albumin 2.8 g/dL (3.4-5.0) Albumin/Globulin Ratio 0.6 (1.0-1.7) Test 10/01/18 06:30 Sodium Level 137 mmol/L (136-145) Potassium Level 4.5 mmol/L (3.5-5.1) Chloride Level 101 mmol/L (98-107) Carbon Dioxide Level 26 mmol/L (21-32) Anion Gap 10 (6-14) Blood Urea Nitrogen 11 mg/dL (7-20) Creatinine 1.1 mg/dL (0.6-1.0) Estimated GFR (Cockcroft-Gault) 59.1 Glucose Level 94 mg/dL (70-99) Calcium Level 9.0 mg/dL (8.5-10.1) Magnesium Level 1.9 mg/dL (1.8-2.4) Laboratory Tests Test 10/01/18 06:30 Sodium Level 137 mmol/L (136-145) Potassium Level 4.5 mmol/L (3.5-5.1) Chloride Level 101 mmol/L (98-107) Carbon Dioxide Level 26 mmol/L (21-32) Anion Gap 10 (6-14) Blood Urea Nitrogen 11 mg/dL (7-20) Creatinine 1.1 mg/dL (0.6-1.0) Estimated GFR (Cockcroft-Gault) 59.1 Glucose Level 94 mg/dL (70-99) Calcium Level 9.0 mg/dL (8.5-10.1) Magnesium Level 1.9 mg/dL (1.8-2.4) Medications Current Medications Ondansetron HCl (Zofran) 4 mg PRN Q8HRS PRN IV NAUSEA/VOMITING; Start 09/29/18 at 09:30; Stop 09/30/18 at 09:29; Status DC Acetaminophen (Tylenol) 650 mg PRN Q4HRS PRN PO FEVER or PAIN; Start 09/29/18 at 09:30; Stop 09/30/18 at 09:29; Status DC Sodium Chloride 1,000 ml @ 100 mls/hr 1X ONCE IV Last administered on at 09:24; Start 09/29/18 at 09:30; Stop 09/29/18 at 19:29; Status DC Sodium Chloride (Normal Saline Flush) 10 ml QSHIFT PRN IV AFTER MEDS AND BLOOD DRAWS; Start 09/29/18 at 11:00 Multivitamins 10 ml/Thiamine HCl 100 mg/Folic Acid 1 mg/Sodium Chloride 1,011.2 ml @ 100 mls/ hr DAILY IV Last administered on 10/01/18at 08:39; Start 09/29/18 at 11:30; Stop 10/03/18 at 19:07 Lorazepam (Ativan) 1 mg Q6H PO Last administered on 09/30/18at 17:41; Start at 12:00; Stop 09/30/18 at 18:01; Status DC Lorazepam (Ativan) 4 mg PRN Q1HR PRN PO For CIWA 8-14; Start 09/29/18 at 11:00 Lorazepam (Ativan) 2 mg PRN Q1HR PRN IV For CIWA 8-14 Last administered on at 15:30; Start 09/29/18 at 11:00 Haloperidol Lactate (Haldol Inj) 5 mg PRN Q4HRS PRN IVP Hallucinatns,Confusn, Delirium Last administered on 09/30/18at 16:20; Start 09/29/18 at 11:00 Diphenhydramine HCl (Benadryl) 25 mg PRN Q15MIN PRN IVP EPS symptoms 2'Haldol admin; Start 09/29/18 at 11:00 Clonidine HCl (Catapres) 0.1 mg PRN Q1HR PRN PO SBP > 180 or DBP > 100, MRX3; Start 09/29/18 at 11:00 Lorazepam (Ativan) 2 mg PRN Q15MIN PRN IV ; Start 09/29/18 at 11:00; Status UNV Chlorhexidine Gluconate (Peridex) 15 ml BID SWSP Last administered on 10/01/18at 08:39; Start 09/29/18 at 21:00 Pantoprazole Sodium (Protonix) 40 mg BIDAC PO Last administered on 10/01/18 07: 29; Start 09/29/18 at 11:30 Amlodipine Besylate (Norvasc) 5 mg DAILY PO Last administered on 10/01/18at 08:39 ; Start 09/29/18 at 12:00 Magnesium Sulfate 3 gm/Dextrose 106 ml @ 35.333 mls/ hr 1X ONCE IV Last administered on 09/29/18 11:38; Start 09/29/18 at 12:00; Stop 09/29/18 at 14:59; Status DC Multivitamins (Thera M Plus) 1 tab DAILY PO ; Start 10/04/18 at 09:00 Thiamine Mononitrate (Vitamin B-1) 100 mg DAILY PO ; Start 10/04/18 at 09:00 Active Scripts Active Pantoprazole Sodium 40 Mg Tablet.dr 40 Mg PO BIDAC 30 Days Peridex (Chlorhexidine Gluconate) 15 Ml Mouthwash 15 Ml PO BID Swish for 30 seconds and spit Vitals/I & O Vital Sign - Last 24 Hours 09/30/18 09/30/18 09/30/18 09/30/18 11:00 15:00 19:00 20:00 Temp 97.7 98.4 97.6 97.7 98.4 97.6 Pulse 68 68 85 Resp 17 17 18 B/P (MAP) 153/70 (97) 159/71 (100) 166/89 (114) Pulse Ox 100 99 99 O2 Delivery Room Air Room Air Room Air Room Air 09/30/18 10/01/18 10/01/18 10/01/18 23:00 03:00 07:00 08:39 Temp 97.5 98.0 98.4 97.5 98.0 98.4 Pulse 78 81 84 84 Resp 18 18 18 B/P (MAP) 131/71 (91) 150/85 (106) 167/80 (109) 167/80 Pulse Ox 99 99 98 O2 Delivery Room Air Room Air Room Air Intake and Output 09/30/18 09/30/18 10/01/18 15:00 23:00 07:00 Intake Total 480 ml 480 ml 0 ml Output Total 350 ml 600 ml Balance 130 ml -120 ml 0 ml BERTIN GALARZA MD Oct 01, 2018 10:16
[2018-10-01 11:21] VITALS: BP 143/59
--- NOTE | 2018-10-01 12:43 | PDOC ---
Subjective: Subjective: No GI complaints. Objective: Vital Signs: Vital Signs Date Time Temp Pulse Resp B/P (MAP) Pulse Ox O2 Delivery O2 Flow Rate FiO2 10/01/18 11:21 98.2 86 16 143/59 (87) 96 Room Air 98.2 Labs: Laboratory Tests Test 10/01/18 06:30 Sodium Level 137 mmol/L Potassium Level 4.5 mmol/L Chloride Level 101 mmol/L Carbon Dioxide Level 26 mmol/L Anion Gap 10 Blood Urea Nitrogen 11 mg/dL Creatinine 1.1 mg/dL Estimated GFR (Cockcroft-Gault) 59.1 Glucose Level 94 mg/dL Calcium Level 9.0 mg/dL Magnesium Level 1.9 mg/dL PE: GEN: NAD, up in chair eating lunch w/ enthusiasm LUNGS: room air NEURO/PSYCH: A & O 3 A/P: Encephalopathy, +alcohol Chronic anemia H/o large w/ intestinal metaplasia 02/2017 -- Continue PPI and follow-up for outpt EGD. MORELIA MARTINEZ Oct 01, 2018 12:43
[2018-10-01 15:20] VITALS: BP 137/63
[2018-10-01 19:00] VITALS: BP 155/77
[2018-10-01] MEDS: cefTRIAXone IV Push 1 GM VIAL. IVP SCH (21:20)
[2018-10-01 22:48] VITALS: BP 161/81
[2018-10-02] VITALS (7 sets, daily range): BP systolic 135–148; BP diastolic 61–76
[2018-10-02] MEDS: PANTOPRAZOLE 40 MG TABLET.DR. PO SCH ×2 (08:31→16:20)
[2018-10-02] MEDS: CHLORHEXIDINE 0.12% 15 ML MOUTHWASH. SWSP SCH ×2 (08:31→21:59)
[2018-10-02] MEDS: amLODIPine BESYLATE 5 MG TABLET PO SCH (08:31)
[2018-10-02] MEDS: MULTIVIT INFUSN,ADULT 4,VIT K 10 ML, THIAMINE INJ 100 MG, FOLIC ACID INJ 1 MG in IV NOR... IV SCH (08:59)
--- NOTE | 2018-10-02 10:00 | PDOC ---
PROGRESS NOTES Assessment Syncope. Toxic encephalopathy. ETOH level 32.. Metabolic encephalopathy, hyponatremia, Na+ 129, Cl 94. HTN. GI ulcer, Hx. Smoking. Plan senior care. Detoxication treatment. Vit B 1 100 mg daily. Correct electrolytes imbalances. Treat medical diseases. Subjective Agreeable to going to shelter unit Objective Vital Signs Date Time Temp Pulse Resp B/P (MAP) Pulse Ox O2 Delivery O2 Flow Rate FiO2 10/02/18 08:37 98.2 81 143/69 (93) 97 Room Air 98.2 10/02/18 07:00 17 Intake and Output 10/02/18 06:59 Intake Total 1711.2 ml Balance 1711.2 ml Intake Oral 700 ml IV Total 1011.2 ml # Voids 4 # Bowel Movements 2 PHYSICAL EXAM Alert. Oriented to place and person, does not know the date. PERRL. EOMI. CN: no focal findings. Muscle tone: normal. Muscle strength: 5/5 DTR: 2+ Plantar reflex: flexor Gait: not tested Sensory exam: no abnormal findings. No cerebellar signs elicited. Review of Relevant I have reviewed the following items mari (where applicable) has been applied. Labs Laboratory Tests Test 10/01/18 06:30 Sodium Level 137 mmol/L (136-145) Potassium Level 4.5 mmol/L (3.5-5.1) Chloride Level 101 mmol/L (98-107) Carbon Dioxide Level 26 mmol/L (21-32) Anion Gap 10 (6-14) Blood Urea Nitrogen 11 mg/dL (7-20) Creatinine 1.1 mg/dL (0.6-1.0) Estimated GFR (Cockcroft-Gault) 59.1 Glucose Level 94 mg/dL (70-99) Calcium Level 9.0 mg/dL (8.5-10.1) Magnesium Level 1.9 mg/dL (1.8-2.4) Medications Current Medications Ondansetron HCl (Zofran) 4 mg PRN Q8HRS PRN IV NAUSEA/VOMITING; Start 09/29/18 at 09:30; Stop 09/30/18 at 09:29; Status DC Acetaminophen (Tylenol) 650 mg PRN Q4HRS PRN PO FEVER or PAIN; Start 09/29/18 at 09:30; Stop 09/30/18 at 09:29; Status DC Sodium Chloride 1,000 ml @ 100 mls/hr 1X ONCE IV Last administered on 09:24; Start 09/29/18 at 09:30; Stop 09/29/18 at 19:29; Status DC Sodium Chloride (Normal Saline Flush) 10 ml QSHIFT PRN IV AFTER MEDS AND BLOOD DRAWS; Start 09/29/18 at 11:00 Multivitamins 10 ml/Thiamine HCl 100 mg/Folic Acid 1 mg/Sodium Chloride 1,011.2 ml @ 100 mls/ hr DAILY IV Last administered on 10/02/18 08:59; Start 09/29/18 at 11:30; Stop 10/03/18 at 19:07 Lorazepam (Ativan) 1 mg Q6H PO Last administered on 09/30/18 17:41; Start at 12:00; Stop 09/30/18 at 18:01; Status DC Lorazepam (Ativan) 4 mg PRN Q1HR PRN PO For CIWA 8-14; Start 09/29/18 at 11:00 Lorazepam (Ativan) 2 mg PRN Q1HR PRN IV For CIWA 8-14 Last administered on 15:30; Start 09/29/18 at 11:00 Haloperidol Lactate (Haldol Inj) 5 mg PRN Q4HRS PRN IVP Hallucinatns,Confusn, Delirium Last administered on 09/30/18 16:20; Start 09/29/18 at 11:00 Diphenhydramine HCl (Benadryl) 25 mg PRN Q15MIN PRN IVP EPS symptoms 2'Haldol admin; Start 09/29/18 at 11:00 Clonidine HCl (Catapres) 0.1 mg PRN Q1HR PRN PO SBP > 180 or DBP > 100, MRX3; Start 09/29/18 at 11:00 Lorazepam (Ativan) 2 mg PRN Q15MIN PRN IV ; Start 09/29/18 at 11:00; Status UNV Chlorhexidine Gluconate (Peridex) 15 ml BID SWSP Last administered on 10/02/18 08:31; Start 09/29/18 at 21:00 Pantoprazole Sodium (Protonix) 40 mg BIDAC PO Last administered on 3/6/19at 08: 31; Start 09/29/18 at 11:30 Amlodipine Besylate (Norvasc) 5 mg DAILY PO Last administered on 10/02/18 08:31 ; Start 09/29/18 at 12:00 Magnesium Sulfate 3 gm/Dextrose 106 ml @ 35.333 mls/ hr 1X ONCE IV Last administered on 09/29/18 11:38; Start 09/29/18 at 12:00; Stop 09/29/18 at 14:59; Status DC Multivitamins (Thera M Plus) 1 tab DAILY PO ; Start 10/04/18 at 09:00 Thiamine Mononitrate (Vitamin B-1) 100 mg DAILY PO ; Start 10/04/18 at 09:00 Ceftriaxone Sodium (Rocephin) 1 gm Q24H IVP Last administered on 10/01/18at 21:20 ; Start 10/01/18 at 21:00 Active Scripts Active Pantoprazole Sodium 40 Mg Tablet.dr 40 Mg PO BIDAC 30 Days Peridex (Chlorhexidine Gluconate) 15 Ml Mouthwash 15 Ml PO BID Swish for 30 seconds and spit Vitals/I & O Vital Sign - Last 24 Hours 10/01/18 10/01/18 10/01/18 10/01/18 11:21 15:20 19:00 19:00 Temp 98.2 98.3 99.1 98.2 98.3 99.1 Pulse 86 18 85 Resp 16 18 18 B/P (MAP) 143/59 (87) 137/63 (87) 155/77 (103) Pulse Ox 96 97 98 O2 Delivery Room Air Room Air Room Air Room Air 10/01/18 10/02/18 10/02/18 10/02/18 22:48 03:00 07:00 08:00 Temp 98.3 98.5 98.2 98.3 98.5 98.2 Pulse 86 85 81 Resp 18 18 17 B/P (MAP) 161/81 (107) 135/61 (85) 143/69 (93) Pulse Ox 99 96 97 O2 Delivery Room Air Room Air Room Air Room Air 10/02/18 10/02/18 08:31 08:37 Temp 98.2 98.2 Pulse 81 81 B/P (MAP) 143/69 143/69 (93) Pulse Ox 97 O2 Delivery Room Air Intake and Output 10/01/18 10/01/18 10/02/18 14:59 22:59 06:59 Intake Total 450 ml 1111.2 ml 150 ml Balance 450 ml 1111.2 ml 150 ml BERTIN GALARZA MD Oct 02, 2018 10:00
--- NOTE | 2018-10-02 10:30 | PDOC ---
PROGRESS NOTES Chief Complaint Chief Complaint Syncope. Toxic encephalopathy. Metabolic encephalopathy. ETOH level 32. Hyponatremia, Na+ 129, Cl 94. HTN. Smoking. Severe chronic alcohol abuse affecting health, high risk of complications hx GASTRIC ULCER 2016 WITH extensive intestinal metaplasia and ulceration. post- op dx- large penetrating lesser curve ulcer 4 x 8 cm s/p bx with cratered base 2016 Severe protein-caloric malnutrition Poor dentition TOBACCO ABUSE Mild bilateral periventricular white matter hypodensities likely chronic small vessel ischemic disease. Hypomagnesemia History of Present Illness History of Present Illness 72 years old female patient with past medical history of hypertension and large gastric ulcer. She is currently admitted to the hospital after she was brought by EMS for syncope. Reportedly, patient was found by her family members lying down on the bathroom floor on her back. GI consulted for history of intestinal metaplasia in gastric mucosa. [She had upper endoscopic exam with biopsies on that was notable for large penetrating lesser curve ulcer 4 x 8 cm with no active bleeding. Gastric biopsies obtained at that time showed moderate to marked active chronic inflammation with extensive intestinal metaplasia. There were also segments of acute inflammatory exudate consistent with ulceration, neg for h. pylori. No evidence of malignancy.] Seen by cardiology and neurology for syncope. Echo: The left ventricular systolic function is normal and the ejection fraction is within normal range. The Ejection Fraction is 55%. There is normal LV segmental wall motion. Doppler and Color Flow revealed mild tricuspid regurgitation. There is moderate pulmonary hypertension. The PA pressure was estimated at 46 mmHg. Carotid dopplers with no significant stenosis 3/5: Still feeling a little unsteady. She is not dizzy. She notes she drinks a pint of alcohol every 2 days. Seen by PT, recommended SNF. Urine returned with + LE and bacteria She is pleasant today. She was confused about going to alcohol rehabilitation vs penitentiary. I have reassured her it is penitentiary. She is amenable , would like us to speak with her grand-daughter A/P: Rocephin for UTI, can change to cefuroxime PT/OT to see Neurology ok with 19/02 care She needs SNF on d/c, likely today or tomorrow Vitals Vitals Vital Signs Date Time Temp Pulse Resp B/P (MAP) Pulse Ox O2 Delivery O2 Flow Rate FiO2 10/02/18 08:37 98.2 81 143/69 (93) 97 Room Air 98.2 10/02/18 07:00 17 Physical Exam General: Alert, Cooperative, No acute distress Heart: Regular rate, Normal S1, Normal S2 Lungs: Clear Abdomen: Soft, No tenderness Extremities: No edema, Normal pulses Skin: No breakdown, No significant lesion Comment Review of Relevant I have reviewed the following items mari (where applicable) has been applied. Labs Laboratory Tests Test 10/01/18 06:30 Sodium Level 137 mmol/L (136-145) Potassium Level 4.5 mmol/L (3.5-5.1) Chloride Level 101 mmol/L (98-107) Carbon Dioxide Level 26 mmol/L (21-32) Anion Gap 10 (6-14) Blood Urea Nitrogen 11 mg/dL (7-20) Creatinine 1.1 mg/dL (0.6-1.0) Estimated GFR (Cockcroft-Gault) 59.1 Glucose Level 94 mg/dL (70-99) Calcium Level 9.0 mg/dL (8.5-10.1) Magnesium Level 1.9 mg/dL (1.8-2.4) Medications Current Medications Ondansetron HCl (Zofran) 4 mg PRN Q8HRS PRN IV NAUSEA/VOMITING; Start 09/29/18 at 09:30; Stop 09/30/18 at 09:29; Status DC Acetaminophen (Tylenol) 650 mg PRN Q4HRS PRN PO FEVER or PAIN; Start 09/29/18 at 09:30; Stop 09/30/18 at 09:29; Status DC Sodium Chloride 1,000 ml @ 100 mls/hr 1X ONCE IV Last administered on at 09:24; Start 09/29/18 at 09:30; Stop 09/29/18 at 19:29; Status DC Sodium Chloride (Normal Saline Flush) 10 ml QSHIFT PRN IV AFTER MEDS AND BLOOD DRAWS; Start 09/29/18 at 11:00 Multivitamins 10 ml/Thiamine HCl 100 mg/Folic Acid 1 mg/Sodium Chloride 1,011.2 ml @ 100 mls/ hr DAILY IV Last administered on 10/02/18at 08:59; Start 09/29/18 at 11:30; Stop 10/03/18 at 19:07 Lorazepam (Ativan) 1 mg Q6H PO Last administered on 09/30/18at 17:41; Start at 12:00; Stop 09/30/18 at 18:01; Status DC Lorazepam (Ativan) 4 mg PRN Q1HR PRN PO For CIWA 8-14; Start 09/29/18 at 11:00 Lorazepam (Ativan) 2 mg PRN Q1HR PRN IV For CIWA 8-14 Last administered on at 15:30; Start 09/29/18 at 11:00 Haloperidol Lactate (Haldol Inj) 5 mg PRN Q4HRS PRN IVP Hallucinatns,Confusn, Delirium Last administered on 09/30/18 16:20; Start 09/29/18 at 11:00 Diphenhydramine HCl (Benadryl) 25 mg PRN Q15MIN PRN IVP EPS symptoms 2'Haldol admin; Start 09/29/18 at 11:00 Clonidine HCl (Catapres) 0.1 mg PRN Q1HR PRN PO SBP > 180 or DBP > 100, MRX3; Start 09/29/18 at 11:00 Lorazepam (Ativan) 2 mg PRN Q15MIN PRN IV ; Start 09/29/18 at 11:00; Status UNV Chlorhexidine Gluconate (Peridex) 15 ml BID SWSP Last administered on 10/02/18at 08:31; Start 09/29/18 at 21:00 Pantoprazole Sodium (Protonix) 40 mg BIDAC PO Last administered on 10/02/18at 08: 31; Start 09/29/18 at 11:30 Amlodipine Besylate (Norvasc) 5 mg DAILY PO Last administered on 10/02/18at 08:31 ; Start 09/29/18 at 12:00 Magnesium Sulfate 3 gm/Dextrose 106 ml @ 35.333 mls/ hr 1X ONCE IV Last administered on 09/29/18at 11:38; Start 09/29/18 at 12:00; Stop 09/29/18 at 14:59; Status DC Multivitamins (Thera M Plus) 1 tab DAILY PO ; Start 10/04/18 at 09:00 Thiamine Mononitrate (Vitamin B-1) 100 mg DAILY PO ; Start 10/04/18 at 09:00 Ceftriaxone Sodium (Rocephin) 1 gm Q24H IVP Last administered on 10/01/18at 21:20 ; Start 10/01/18 at 21:00 Active Scripts Active Pantoprazole Sodium 40 Mg Tablet.dr 40 Mg PO BIDAC 30 Days Peridex (Chlorhexidine Gluconate) 15 Ml Mouthwash 15 Ml PO BID Swish for 30 seconds and spit Vitals/I & O Vital Sign - Last 24 Hours 10/01/18 10/01/18 10/01/18 10/01/18 11:21 15:20 19:00 19:00 Temp 98.2 98.3 99.1 98.2 98.3 99.1 Pulse 86 18 85 Resp 16 18 18 B/P (MAP) 143/59 (87) 137/63 (87) 155/77 (103) Pulse Ox 96 97 98 O2 Delivery Room Air Room Air Room Air Room Air 10/01/18 10/02/18 10/02/18 10/02/18 22:48 03:00 07:00 08:00 Temp 98.3 98.5 98.2 98.3 98.5 98.2 Pulse 86 85 81 Resp 18 18 17 B/P (MAP) 161/81 (107) 135/61 (85) 143/69 (93) Pulse Ox 99 96 97 O2 Delivery Room Air Room Air Room Air Room Air 10/02/18 10/02/18 08:31 08:37 Temp 98.2 98.2 Pulse 81 81 B/P (MAP) 143/69 143/69 (93) Pulse Ox 97 O2 Delivery Room Air Intake and Output 10/01/18 10/01/18 10/02/18 15:00 23:00 07:00 Intake Total 450 ml 1111.2 ml 150 ml Balance 450 ml 1111.2 ml 150 ml Nutrition Consultation Dietary Evaluation: Recommendations by RD: Protein supplementation Comments: Recommend Cardiac/dysphagia diet per past medical history of hypertension Recommend continue Ensure Pudding (TID)- already in diet order Expected Outcomes/Goals: P.O. intake to meet >75% estimated needs Malnutrition Findings: Body Fat Depletion (Non Severe: Mild Depletion Weight Status: Underweight DAVID AQUINO MD Oct 02, 2018 10:30
--- NOTE | 2018-10-02 12:02 | PDOC ---
Subjective: Subjective: No complaints. Objective: Objective: No GI concerns per RN. Working on discharge plans w/ dementia. Vital Signs: Vital Signs Date Time Temp Pulse Resp B/P (MAP) Pulse Ox O2 Delivery O2 Flow Rate FiO2 10/02/18 11:00 98.1 83 17 139/70 (93) 100 98.1 10/02/18 08:37 Room Air PE: GEN: NAD LUNGS: CTAB HEART: RRR ABD: NABS, S/ND/NT NEURO/PSYCH: A & O 3 A/P: Chronic anemia H/o large w/ intestinal metaplasia 02/2017 -- DC per primary on PPI. Follow-up for outpt EGD. MORELIA MARTINEZ Oct 02, 2018 12:02
[2018-10-02] MEDS: LACTOBACILLUS RHAMNOSUS GG 1 CAPSULE. PO SCH ×2 (13:30→21:59)
[2018-10-02] MEDS: cefTRIAXone IV Push 1 GM VIAL. IVP SCH (21:59)
[2018-10-03 02:52] VITALS: BP 145/72
[2018-10-03] MEDS: PANTOPRAZOLE 40 MG TABLET.DR. PO SCH ×2 (05:58→16:30)
[2018-10-03 07:00] VITALS: BP 135/67
--- NOTE | 2018-10-03 08:01 | PDOC ---
PROGRESS NOTES Chief Complaint Chief Complaint Syncope Toxic encephalopathy Metabolic encephalopathy ETOH level 32 Hyponatremia, Na+ 129, Cl 94 HTN Smoking Severe chronic alcohol abuse affecting health, high risk of complications Hx GASTRIC ULCER 2017 WITH extensive intestinal metaplasia and ulceration Post-op dx- large penetrating lesser curve ulcer 4 x 8 cm s/p bx with cratered base 2016 Severe protein-caloric malnutrition Poor dentition TOBACCO ABUSE Mild bilateral periventricular white matter hypodensities likely chronic small vessel ischemic disease Hypomagnesemia History of Present Illness History of Present Illness 72 years old female patient with past medical history of hypertension and large gastric ulcer. She is currently admitted to the hospital after she was brought by EMS for syncope. Reportedly, patient was found by her family members lying down on the bathroom floor on her back. GI consulted for history of intestinal metaplasia in gastric mucosa. [She had upper endoscopic exam with biopsies on that was notable for large penetrating lesser curve ulcer 4 x 8 cm with no active bleeding. Gastric biopsies obtained at that time showed moderate to marked active chronic inflammation with extensive intestinal metaplasia. There were also segments of acute inflammatory exudate consistent with ulceration, neg for h. pylori. No evidence of malignancy.] Seen by cardiology and neurology for syncope. Echo: The left ventricular systolic function is normal and the ejection fraction is within normal range. The Ejection Fraction is 55%. There is normal LV segmental wall motion. Doppler and Color Flow revealed mild tricuspid regurgitation. There is moderate pulmonary hypertension. The PA pressure was estimated at 46 mmHg. Carotid dopplers with no significant stenosis 10/01: Still feeling a little unsteady. She is not dizzy. She notes she drinks a pint of alcohol every 2 days. Seen by PT, recommended SNF. Urine returned with + LE and bacteria She is pleasant today. She was confused about going to alcohol rehabilitation vs retirement. I have reassured her it is retirement. She is amenable , would like us to speak with her grand-daughter, DPOA A/P: Rocephin for UTI, can change to cefuroxime PT/OT to see Neurology ok with 19/02 care She needs SNF on d/c, likely today or tomorrow Vitals Vitals Vital Signs Date Time Temp Pulse Resp B/P (MAP) Pulse Ox O2 Delivery O2 Flow Rate FiO2 10/03/18 02:52 98.2 94 18 145/72 (96) 97 Room Air 98.2 Physical Exam General: Alert, Cooperative, No acute distress Heart: Regular rate, Normal S1, Normal S2 Lungs: Clear Abdomen: Soft, No tenderness Extremities: No edema, Normal pulses Skin: No breakdown, No significant lesion Comment Review of Relevant I have reviewed the following items mari (where applicable) has been applied. Labs Microbiology 09/29/18 Urine Culture - Final, Complete 09/29/18 Urine Culture Result 1 (JERZY) - Final, Complete Medications Current Medications Ondansetron HCl (Zofran) 4 mg PRN Q8HRS PRN IV NAUSEA/VOMITING; Start 09/29/18 at 09:30; Stop 09/30/18 at 09:29; Status DC Acetaminophen (Tylenol) 650 mg PRN Q4HRS PRN PO FEVER or PAIN; Start 09/29/18 at 09:30; Stop 09/30/18 at 09:29; Status DC Sodium Chloride 1,000 ml @ 100 mls/hr 1X ONCE IV Last administered on at 09:24; Start 09/29/18 at 09:30; Stop 09/29/18 at 19:29; Status DC Sodium Chloride (Normal Saline Flush) 10 ml QSHIFT PRN IV AFTER MEDS AND BLOOD DRAWS; Start 09/29/18 at 11:00 Multivitamins 10 ml/Thiamine HCl 100 mg/Folic Acid 1 mg/Sodium Chloride 1,011.2 ml @ 100 mls/ hr DAILY IV Last administered on 10/02/18at 08:59; Start 09/29/18 at 11:30; Stop 10/03/18 at 19:07 Lorazepam (Ativan) 1 mg Q6H PO Last administered on 09/30/18at 17:41; Start at 12:00; Stop 09/30/18 at 18:01; Status DC Lorazepam (Ativan) 4 mg PRN Q1HR PRN PO For CIWA 8-14; Start 09/29/18 at 11:00 Lorazepam (Ativan) 2 mg PRN Q1HR PRN IV For CIWA 8-14 Last administered on at 15:30; Start 09/29/18 at 11:00 Haloperidol Lactate (Haldol Inj) 5 mg PRN Q4HRS PRN IVP Hallucinatns,Confusn, Delirium Last administered on 09/30/18at 16:20; Start 09/29/18 at 11:00 Diphenhydramine HCl (Benadryl) 25 mg PRN Q15MIN PRN IVP EPS symptoms 2'Haldol admin; Start 09/29/18 at 11:00 Clonidine HCl (Catapres) 0.1 mg PRN Q1HR PRN PO SBP > 180 or DBP > 100, MRX3; Start 09/29/18 at 11:00 Lorazepam (Ativan) 2 mg PRN Q15MIN PRN IV ; Start 09/29/18 at 11:00; Status UNV Chlorhexidine Gluconate (Peridex) 15 ml BID SWSP Last administered on 10/02/18 21:59; Start 09/29/18 at 21:00 Pantoprazole Sodium (Protonix) 40 mg BIDAC PO Last administered on 10/03/18 05: 58; Start 09/29/18 at 11:30 Amlodipine Besylate (Norvasc) 5 mg DAILY PO Last administered on 10/02/18 08:31 ; Start 09/29/18 at 12:00 Magnesium Sulfate 3 gm/Dextrose 106 ml @ 35.333 mls/ hr 1X ONCE IV Last administered on 09/29/18 11:38; Start 09/29/18 at 12:00; Stop 09/29/18 at 14:59; Status DC Multivitamins (Thera M Plus) 1 tab DAILY PO ; Start 10/04/18 at 09:00 Thiamine Mononitrate (Vitamin B-1) 100 mg DAILY PO ; Start 10/04/18 at 09:00 Ceftriaxone Sodium (Rocephin) 1 gm Q24H IVP Last administered on 10/02/18 21:59 ; Start 10/01/18 at 21:00 Lactobacillus Rhamnosus (Culturelle) 1 cap BID PO Last administered on 21:59; Start 10/02/18 at 13:00 Active Scripts Active Pantoprazole Sodium 40 Mg Tablet.dr 40 Mg PO BIDAC 30 Days Peridex (Chlorhexidine Gluconate) 15 Ml Mouthwash 15 Ml PO BID Swish for 30 seconds and spit Vitals/I & O Vital Sign - Last 24 Hours 10/02/18 10/02/18 10/02/18 10/02/18 08:31 08:37 11:00 15:00 Temp 98.2 98.1 97.8 98.2 98.1 97.8 Pulse 81 81 83 82 Resp 17 17 B/P (MAP) 143/69 143/69 (93) 139/70 (93) 146/63 (90) Pulse Ox 97 100 100 O2 Delivery Room Air 10/02/18 10/02/18 10/02/18 10/03/18 19:00 20:00 22:37 02:52 Temp 97.3 98.4 98.2 97.3 98.4 98.2 Pulse 97 90 94 Resp 17 17 18 B/P (MAP) 148/76 (100) 147/75 (99) 145/72 (96) Pulse Ox 100 96 97 O2 Delivery Room Air Room Air Room Air Room Air Intake and Output 10/02/18 10/02/18 10/03/18 14:59 22:59 06:59 Intake Total 440 ml 1000 ml Output Total 1400 ml Balance 440 ml 1000 ml -1400 ml Nutrition Consultation Dietary Evaluation: Recommendations by RD: Protein supplementation Comments: Recommend Cardiac/dysphagia diet per past medical history of hypertension Recommend continue Ensure Pudding (TID)- already in diet order Expected Outcomes/Goals: P.O. intake to meet >75% estimated needs Malnutrition Findings: Body Fat Depletion (Non Severe: Mild Depletion Weight Status: Underweight DAVID AQUINO MD Oct 03, 2018 08:01
[2018-10-03] MEDS: amLODIPine BESYLATE 5 MG TABLET PO SCH (08:48)
[2018-10-03] MEDS: LACTOBACILLUS RHAMNOSUS GG 1 CAPSULE. PO SCH (08:48)
[2018-10-03] MEDS: CHLORHEXIDINE 0.12% 15 ML MOUTHWASH. SWSP SCH (08:48)
[2018-10-03] MEDS: MULTIVIT INFUSN,ADULT 4,VIT K 10 ML, THIAMINE INJ 100 MG, FOLIC ACID INJ 1 MG in IV NOR... IV SCH (08:49)
[2018-10-03 11:00] VITALS: BP 132/60
--- NOTE | 2018-10-03 12:27 | PDOC ---
Subjective: Subjective: Walking with therapy, doing ok. Objective: Vital Signs: Vital Signs Date Time Temp Pulse Resp B/P (MAP) Pulse Ox O2 Delivery O2 Flow Rate FiO2 10/03/18 08:48 94 145/72 10/03/18 08:00 Room Air 10/03/18 07:00 97.8 17 98 97.8 Labs: URINE CULTURE Final Final report URINE CULTURE RES 1 Final Comment Diphtheroids, not Corynebacterium urealyticum PE: GEN: NAD, walking in the hallway ABD: S/ND/NT NEURO/PSYCH: appropriate A/P: Chronic anemia, h/o and intestinal metaplasia UTI, dementia -- Continue PPI, outpt EGD. MORELIA MARTINEZ Oct 03, 2018 12:27
[2018-10-03] MEDS ORDERED: AMLO5TAB10 PO (12:51)
[2018-10-03] MEDS ORDERED: CEFU250T59 PO (12:51)
[2018-10-03] MEDS ORDERED: LACT1CAP19 PO (12:51)
[2018-10-03] MEDS ORDERED: THIA100T22 PO (12:51)
--- NOTE | 2018-10-03 12:53 | SNU/HH DC ---
DISCHARGE ORDERS DISCHARGE INFORMATION: DISCHARGE DATE: Oct 03, 2018 FINAL DIAGNOSIS Acute encephalopathy CONDITION ON DISCHARGE: Stable CODE STATUS: Code Status: Full INTERMEDIATE: SNF STAY <30 DAYS: Yes HOSPICE: HOSPICE: No HOSPICE EVAL & TREAT: No LTAC: ADMIT TO LTAC: No POST DISCHARGE ORDERS: ACTIVITY ORDERS: Activity as tolerated WEIGHT BEARING STATUS: As tolerated DIET AFTER DISCHARGE: Regular CHECKS AFTER DISCHARGE: CHECKS AFTER DISCHARGE: Check blood press - daily, Check your Temp as needed TREATMENT/EQUIPMENT ORDERS: ADAPTIVE EQUIPMENT NEEDED: Front wheeled walker Physical Therapy For: Evalulation/Treatment Occupational Therapy For: Evaluation/Treatment DISCHARGE MEDICATIONS: Home Meds Active Scripts Thiamine Mononitrate (VITAMIN B-1) 100 Mg Tablet, 100 MG PO DAILY for Thiamine def for 30 Days, #30 TAB Prov:DAVID AQUINO MD 10/03/18 Lactobacillus Rhamnosus Gg (CULTURELLE) 1 Each Cap.sprink, 1 CAP PO BID for Diarrhea for 7 Days, #14 CAP Prov:DAVID AQUINO MD 10/03/18 Cefuroxime Axetil (CEFUROXIME) 250 Mg Tablet, 250 MG PO BID for UTI for 3 Days, #6 TAB Prov:DAVID AQUINO MD 10/03/18 Amlodipine Besylate (AMLODIPINE BESYLATE) 5 Mg Tablet, 5 MG PO DAILY for HTN for 30 Days, #30 TAB Prov:DAVID AQUINO MD 10/03/18 Pantoprazole Sodium (PANTOPRAZOLE SODIUM) 40 Mg Tablet.dr, 40 MG PO BIDAC for 30 Days, #60 TAB.SR Prov:OJ THOMAS MD 04/02/17 Chlorhexidine Gluconate (PERIDEX) 15 Ml Mouthwash, 15 ML PO BID, #473 ML Swish for 30 seconds and spit Prov:MICHELLE BURRELL MD 03/13/17 DAVID AQUINO MD Oct 03, 2018 12:52
--- NOTE | 2018-10-03 14:33 | PDOC ---
PROGRESS NOTES Assessment Syncope. Toxic encephalopathy. ETOH level 32.. Metabolic encephalopathy, hyponatremia, Na+ 129, Cl 94. HTN. GI ulcer, Hx. Smoking. Plan custodial. Detoxication treatment. Vit B 1 100 mg daily. Correct electrolytes imbalances. Treat medical diseases. Subjective no complaints Objective Vital Signs Date Time Temp Pulse Resp B/P (MAP) Pulse Ox O2 Delivery O2 Flow Rate FiO2 10/03/18 11:00 97.9 84 17 132/60 (84) 98 Room Air 97.9 Intake and Output 10/03/18 07:00 Intake Total 1440 ml Output Total 1400 ml Balance 40 ml Intake Oral 1440 ml Output Urine Total 1400 ml # Voids 6 PHYSICAL EXAM PHYSICAL EXAM Alert. Oriented to place and person, does not know the date. PERRL. EOMI. CN: no focal findings. Muscle tone: normal. Muscle strength: 5/5 DTR: 2+ Plantar reflex: flexor Gait: not tested Sensory exam: no abnormal findings. No cerebellar signs elicited. Review of Relevant I have reviewed the following items mari (where applicable) has been applied. Labs Microbiology 09/29/18 Urine Culture - Final, Complete 09/29/18 Urine Culture Result 1 (JERZY) - Final, Complete Medications Current Medications Ondansetron HCl (Zofran) 4 mg PRN Q8HRS PRN IV NAUSEA/VOMITING; Start 09/29/18 at 09:30; Stop 09/30/18 at 09:29; Status DC Acetaminophen (Tylenol) 650 mg PRN Q4HRS PRN PO FEVER or PAIN; Start 09/29/18 at 09:30; Stop 09/30/18 at 09:29; Status DC Sodium Chloride 1,000 ml @ 100 mls/hr 1X ONCE IV Last administered on at 09:24; Start 09/29/18 at 09:30; Stop 09/29/18 at 19:29; Status DC Sodium Chloride (Normal Saline Flush) 10 ml QSHIFT PRN IV AFTER MEDS AND BLOOD DRAWS; Start 09/29/18 at 11:00 Multivitamins 10 ml/Thiamine HCl 100 mg/Folic Acid 1 mg/Sodium Chloride 1,011.2 ml @ 100 mls/ hr DAILY IV Last administered on 10/03/18at 08:49; Start 09/29/18 at 11:30; Stop 10/03/18 at 19:07 Lorazepam (Ativan) 1 mg Q6H PO Last administered on 09/30/18 17:41; Start at 12:00; Stop 09/30/18 at 18:01; Status DC Lorazepam (Ativan) 4 mg PRN Q1HR PRN PO For CIWA 8-14; Start 09/29/18 at 11:00 Lorazepam (Ativan) 2 mg PRN Q1HR PRN IV For CIWA 8-14 Last administered on at 15:30; Start 09/29/18 at 11:00 Haloperidol Lactate (Haldol Inj) 5 mg PRN Q4HRS PRN IVP Hallucinatns,Confusn, Delirium Last administered on 09/30/18 16:20; Start 09/29/18 at 11:00 Diphenhydramine HCl (Benadryl) 25 mg PRN Q15MIN PRN IVP EPS symptoms 2'Haldol admin; Start 09/29/18 at 11:00 Clonidine HCl (Catapres) 0.1 mg PRN Q1HR PRN PO SBP > 180 or DBP > 100, MRX3; Start 09/29/18 at 11:00 Lorazepam (Ativan) 2 mg PRN Q15MIN PRN IV ; Start 09/29/18 at 11:00; Status UNV Chlorhexidine Gluconate (Peridex) 15 ml BID SWSP Last administered on 10/03/18at 08:48; Start 09/29/18 at 21:00 Pantoprazole Sodium (Protonix) 40 mg BIDAC PO Last administered on 10/03/18at 05: 58; Start 09/29/18 at 11:30 Amlodipine Besylate (Norvasc) 5 mg DAILY PO Last administered on 10/03/18at 08:48 ; Start 09/29/18 at 12:00 Magnesium Sulfate 3 gm/Dextrose 106 ml @ 35.333 mls/ hr 1X ONCE IV Last administered on 09/29/18at 11:38; Start 09/29/18 at 12:00; Stop 09/29/18 at 14:59; Status DC Multivitamins (Thera M Plus) 1 tab DAILY PO ; Start 10/04/18 at 09:00 Thiamine Mononitrate (Vitamin B-1) 100 mg DAILY PO ; Start 10/04/18 at 09:00 Ceftriaxone Sodium (Rocephin) 1 gm Q24H IVP Last administered on 10/02/18at 21:59 ; Start 10/01/18 at 21:00; Stop 10/03/18 at 12:59; Status DC Lactobacillus Rhamnosus (Culturelle) 1 cap BID PO Last administered on at 08:48; Start 10/02/18 at 13:00 Active Scripts Active Vitamin B-1 (Thiamine Mononitrate) 100 Mg Tablet 100 Mg PO DAILY 30 Days Culturelle (Lactobacillus Rhamnosus Gg) 1 Each Cap.sprink 1 Cap PO BID 7 Days Cefuroxime (Cefuroxime Axetil) 250 Mg Tablet 250 Mg PO BID 3 Days Amlodipine Besylate 5 Mg Tablet 5 Mg PO DAILY 30 Days Pantoprazole Sodium 40 Mg Tablet.dr 40 Mg PO BIDAC 30 Days Peridex (Chlorhexidine Gluconate) 15 Ml Mouthwash 15 Ml PO BID Swish for 30 seconds and spit Vitals/I & O Vital Sign - Last 24 Hours 10/02/18 10/02/18 10/02/18 10/02/18 15:00 19:00 20:00 22:37 Temp 97.8 97.3 98.4 97.8 97.3 98.4 Pulse 82 97 90 Resp 17 17 17 B/P (MAP) 146/63 (90) 148/76 (100) 147/75 (99) Pulse Ox 100 100 96 O2 Delivery Room Air Room Air Room Air 10/03/18 10/03/18 10/03/18 10/03/18 02:52 07:00 08:00 08:48 Temp 98.2 97.8 98.2 97.8 Pulse 94 80 94 Resp 18 17 B/P (MAP) 145/72 (96) 135/67 (89) 145/72 Pulse Ox 97 98 O2 Delivery Room Air Room Air Room Air 10/03/18 11:00 Temp 97.9 97.9 Pulse 84 Resp 17 B/P (MAP) 132/60 (84) Pulse Ox 98 O2 Delivery Room Air Intake and Output 10/02/18 10/02/18 10/03/18 15:00 23:00 07:00 Intake Total 440 ml 1000 ml Output Total 1400 ml Balance 440 ml 1000 ml -1400 ml BERTIN GALARZA MD Oct 03, 2018 14:33
[2018-10-03 15:00] VITALS: BP 128/64
--- NOTE | 2018-10-03 16:24 | SNU/HH DC ---
DISCHARGE WITH HOME HEALTH DISCHARGE INFORMATION: Discharge Date: Oct 03, 2018 Condition on Discharge: Stable CODE STATUS: Code Status: Full HOME HEALTH: Face to Face: I certify this patient is under my care and that I, or a nurse practitioner or physician's application assistant working with me, had a face to face encounter that meets the physician face to face encounter requirements with this patient on 10/03/18. Medical Complications: Dementia Fci For: Assess/Skilled Observatio, Medication Management Physical Therapy For: Evalulation/Treatment Occupational Therapy For: Evaluation/Treatment Home Health Aide For: Self-care SNUFF GRINDER For: Community Resources POST DISCHARGE ORDERS: Activity Instructions for Disc: Activity as tolerated Weight Bearing Status after Di: As tolerated DIET AFTER DISCHARGE: Regular CHECKS AFTER DISCHARGE: Checks after discharge: Check blood press - daily, Check your Temp as needed FOLLOW-UP: Follow up with: [facility] TREATMENT/EQUIPMENT ORDERS: Adaptive Equipment Issued: Front wheeled walker CERTIFICATION STATEMENT: Certification Statement: Certification Statement: Based on the above finding, I certify that this patient is confined to the home and needs intermittent residential care, physical therapy and/or speech therapy, or continues to need occupational therapy.~ This patient is under my care, and I have initiated the establishment of the plan of care.~ This patient will be followed by myself or a community physician who will periodically review the plan of care. Home Meds Active Scripts Thiamine Mononitrate (VITAMIN B-1) 100 Mg Tablet, 100 MG PO DAILY for Thiamine def for 30 Days, #30 TAB Prov:DAVID AQUINO MD 10/03/18 Lactobacillus Rhamnosus Gg (CULTURELLE) 1 Each Cap.sprink, 1 CAP PO BID for Diarrhea for 7 Days, #14 CAP Prov:DAVID AQUINO MD 10/03/18 Cefuroxime Axetil (CEFUROXIME) 250 Mg Tablet, 250 MG PO BID for UTI for 3 Days, #6 TAB Prov:DAVID AQUINO MD 10/03/18 Amlodipine Besylate (AMLODIPINE BESYLATE) 5 Mg Tablet, 5 MG PO DAILY for HTN for 30 Days, #30 TAB Prov:DAVID AQUINO MD 10/03/18 Pantoprazole Sodium (PANTOPRAZOLE SODIUM) 40 Mg Tablet.dr 40 MG PO BIDAC for 30 Days, #60 TAB.SR Prov:OJ THOMAS MD 04/02/17 Chlorhexidine Gluconate (PERIDEX) 15 Ml Mouthwash, 15 ML PO BID, #473 ML Swish for 30 seconds and spit Prov:MICHELLE BURRELL MD 03/13/17 DAVID AQUINO MD Oct 03, 2018 16:24
--- NOTE | 2018-10-03 16:26 | PDOC3 ---
Discharge Summary Visit Information Date of Admission: Sep 29, 2018 Date of Discharge: Oct 03, 2018 Admitting Diagnosis: Acute encephalopathy Final Diagnosis Hyponatremia, UTI Brief Hospital Course Allergies Allergies Coded Allergies Type Severity Reaction Last Updated Verified Penicillins Allergy Intermediate rash 03/26/14 Yes codeine Allergy Intermediate Reaction unknown 03/31/17 Yes latex Allergy Intermediate 03/29/17 Yes Vital Signs Vital Signs Date Time Temp Pulse Resp B/P (MAP) Pulse Ox O2 Delivery O2 Flow Rate FiO2 10/03/18 15:00 98.4 91 17 128/64 (85) 98 Room Air 98.4 Brief Hospital Course Syncope Toxic encephalopathy Metabolic encephalopathy ETOH level 32 Hyponatremia, Na+ 129, Cl 94 HTN Smoking Severe chronic alcohol abuse affecting health, high risk of complications Hx GASTRIC ULCER 2016 WITH extensive intestinal metaplasia and ulceration Post-op dx- large penetrating lesser curve ulcer 4 x 8 cm s/p bx with cratered base 2016 Severe protein-caloric malnutrition Poor dentition TOBACCO ABUSE Mild bilateral periventricular white matter hypodensities likely chronic small vessel ischemic disease Hypomagnesemia History of Present Illness History of Present Illness 72 years old female patient with past medical history of hypertension and large gastric ulcer. She is currently admitted to the hospital after she was brought by EMS for syncope. Reportedly, patient was found by her family members lying down on the bathroom floor on her back. GI consulted for history of intestinal metaplasia in gastric mucosa. [She had upper endoscopic exam with biopsies on that was notable for large penetrating lesser curve ulcer 4 x 8 cm with no active bleeding. Gastric biopsies obtained at that time showed moderate to marked active chronic inflammation with extensive intestinal metaplasia. There were also segments of acute inflammatory exudate consistent with ulceration, neg for h. pylori. No evidence of malignancy.] Seen by cardiology and neurology for syncope. Echo: The left ventricular systolic function is normal and the ejection fraction is within normal range. The Ejection Fraction is 55%. There is normal LV segmental wall motion. Doppler and Color Flow revealed mild tricuspid regurgitation. There is moderate pulmonary hypertension. The PA pressure was estimated at 46 mmHg. Carotid dopplers with no significant stenosis 3/5: Still feeling a little unsteady. She is not dizzy. She notes she drinks a pint of alcohol every 2 days. Seen by PT, recommended SNF. Urine returned with + LE and bacteria She is pleasant today. She was confused about going to alcohol rehabilitation vs correction. I have reassured her it is correction. She is amenable , would like us to speak with her grand-daughter, HOA. After denial for skilled services from insurance the family states they can try to make home health work while they look into long-term placement. A/P: Rocephin for UTI, can change to cefuroxime PT/OT to see Neurology ok with / care She needs SNF on d/c, however, denied, family will work with what they've got. Greater than 30 minutes spent on discharge including d/w insurance, coordination with family, ETOH cessation counseling and medications Discharge Information Condition at Discharge: Improved Follow Up: Weeks (2) Disposition/Orders: D/C to Home w/ HH Scheduled Amlodipine Besylate (Amlodipine Besylate) 5 Mg Tablet, 5 MG PO DAILY for HTN for 30 Days, #30 Prescribed by: DAVID AQUINO MD on 10/03/18 1251 Cefuroxime Axetil (Cefuroxime) 250 Mg Tablet, 250 MG PO BID for UTI for 3 Days, #6 Prescribed by: DAVID AQUINO MD on 10/03/18 1251 Chlorhexidine Gluconate (Peridex) 15 Ml Mouthwash, 15 ML PO BID, #473 Swish for 30 seconds and spit Prescribed by: MICHELLE BURRELL MD on 03/13/17 1406 Last Action: Reviewed on 09/29/181124 by PHOENIX SMITH Lactobacillus Rhamnosus Gg (Culturelle) 1 Each Cap.sprink, 1 CAP PO BID for Diarrhea for 7 Days, #14 Prescribed by: DAVID AQUINO MD on 10/03/18 1251 Pantoprazole Sodium (Pantoprazole Sodium) 40 Mg Tablet.dr, 40 MG PO BIDAC for 30 Days, #60 Prescribed by: OJ THOMAS MD on 04/02/17 1222 Last Action: Reviewed on 09/29/181124 by PHOENIX SMITH Thiamine Mononitrate (Vitamin B-1) 100 Mg Tablet, 100 MG PO DAILY for Thiamine def for 30 Days, #30 Prescribed by: DAVID AQUINO MD on 10/03/18 1251 DAVID AQUINO MD Oct 03, 2018 16:26
[2018-10-04] MEDS ORDERED: THIAMINE 100 MG TABLET. PO SCH (09:00)
[2018-10-04] MEDS ORDERED: MULTIVITAMIN with MINERAL TABLET. PO SCH (09:00)
== END 2018-10-03 17:50 | disposition home health service (06) | DRG 689 ==
LOC: ER 07:57 → 5 NORTH 09:23
PROVIDERS: ADMIT Family Medicine; ATTEND Family Medicine
DX: N39.0 Urinary tract infection, site not specified (principal); G92 Toxic encephalopathy; E43 Unspecified severe protein-calorie malnutrition; E87.1 Hypo-osmolality and hyponatremia; F10.10 Alcohol abuse, uncomplicated; E83.42 Hypomagnesemia; E86.9 Volume depletion, unspecified; I12.9 Hypertensive chronic kidney disease with stage 1 through stage 4 chronic kidney disease, or unspecified chronic kidney disease; Y90.1 Blood alcohol level of 20-39 mg/100 ml; D64.9 Anemia, unspecified; E11.22 Type 2 diabetes mellitus with diabetic chronic kidney disease; F03.90 Unspecified dementia, unspecified severity, without behavioral disturbance, psychotic disturbance, mood disturbance, and anxiety; F17.210 Nicotine dependence, cigarettes, uncomplicated; I27.20 Pulmonary hypertension, unspecified; J44.9 Chronic obstructive pulmonary disease, unspecified; K21.9 Gastro-esophageal reflux disease without esophagitis; K57.30 Diverticulosis of large intestine without perforation or abscess without bleeding; M81.0 Age-related osteoporosis without current pathological fracture; M19.90 Unspecified osteoarthritis, unspecified site; I07.1 Rheumatic tricuspid insufficiency; N18.9 Chronic kidney disease, unspecified; Z87.11 Personal history of peptic ulcer disease; Z80.9 Family history of malignant neoplasm, unspecified; Z82.49 Family history of ischemic heart disease and other diseases of the circulatory system; Z90.49 Acquired absence of other specified parts of digestive tract; Z98.42 Cataract extraction status, left eye; Z98.41 Cataract extraction status, right eye; Z88.5 Allergy status to narcotic agent; Z88.0 Allergy status to penicillin; Z91.040 Latex allergy status; Z68.20 Body mass index [BMI] 20.0-20.9, adult; Z79.84 Long term (current) use of oral hypoglycemic drugs
CPT/HCPCS: 36415; 70450; 71045; 72125; 73010; 80048; 80053; 80307; 81001; 82607; 83540; 83550; 83735; 83880; 84439; 84484; 85025; 85045; 85610; 87086; 93005; 93306; 93880; G0480; J0696; J1630; J2060; J3475; J7030; 97110; 97116; 97530; 97535; 99285-25